=== PATIENT | male | born 1930 | race Two or more races ===

== ENCOUNTER 2016-09-09 16:53 | Inpatient (IN) | payer MEDICARE, MEDICAID ==
--- NOTE | 2016-09-09 17:39 | ED Physician Chart ---
Chief Complaint/HPI - Patient Information Date Seen:: 09/09/16 Time Seen:: 17:20 Chief Complaint:: cough and congestion History of Present Illness:: cough and congestion for two days. Possibly also sent here for possible admission to [facility]. Allergies:: Allergies Allergy/AdvReac Type Severity Reaction Status Date / Time No Known Allergies Allergy Verified 02/18/16 14:49 Historian:: Patient Review:: Transfer documents Reviewed Review of Systems - Review of Systems General/Constitutional: No fever, No chills Skin: No skin lesions Head: No headache Eyes: No loss of vision ENT: No earache Neck: No neck pain Cardio Vascular: No chest pain Pulmonary: No SOB, Cough GI: No nausea, No vomiting G/U: No dysuria Musculoskeletal: No bone or joint pain Endocrine: No polyuria, No polydipsia Psychiatric: Prior psych history, Anxiety Hematopoietic: No bruising Allergic/Immuno: No urticaria Neurological: No syncope Past Medical History - Past Medical History Past Medical History: HTN, Arthritis, Dementia, Other (anxiety; psychosis; bronchitis; CHF; COPD; chronic renal disease; hypothyroidism; BPH; GERD) Family History: Other (unavailable) Social History: Care Facility, Other (former smoker) Surgical History: other (unavailable) Psychiatricy History: Dementia Medication: Reviewed Family Medical History - Family Member Mother History Unknown: Yes Ethnicity: Living Status: Hx Family Cancer: No Hx Family Coronary Artery Disease: No Hx Family Congestive Heart Failure: No Hx Family Hypertension: No Hx Family Stroke: No Hx Family Diabetes: No Hx Family Seizures: No Hx Family Dementia: No Hx Family AIDS: No Hx Family HIV: No Hx Family COPD: No Hx Family Hepatitis: No Hx Family Psychiatric Problems: No Hx Family Tuberculosis: No Physical Exam - Physical Examination General/Constitutional: Well-developed, well-nourished, Alert, No distress Other Gen/Cons comments:: confused; does not know the year. Head: Atraumatic Eyes: Lids, conjuctiva normal, PERRL Skin: Nl inspection, No rash, No skin lesions, No ecchymosis ENMT: External ears, nose nl Neck: No nuchal rigidity Respiratory: Nl effort/Exclusion Other Respiratory comments:: prolonged, harsh expiratory sounds Other Cardio Vascular comments:: heart sounds inaudible GI: No tenderness/rebounding/guarding, No organomegaly, No hernia : No CVA tenderness Other Extremities comments:: 3/4 pre-tibial edema Neuro/Psych: No focal deficits Misc: Normal back Labs/Radiology/EKG Results - Lab Results Results: Laboratory Results - last 24 hr 09/09/16 09/09/16 09/09/16 17:39 17:39 17:39 WBC 10.1 RBC 5.67 Hgb 15.2 D Hct 46.1 D MCV 81.3 MCH 26.8 L MCHC Differential 32.9 RDW 17.1 Plt Count 109 L D MPV 10.3 Neutrophils (Manual) 94 H Lymphocytes 1 L Monocytes 5 Eosinophils 0 Platelet Estimate DECREASED PLATELETS Platelet Morphology GIANT PLATELETS SEEN Polychromasia 1+ Anisocytosis 1+ RBC Morph Micro Appear ABNORMAL Sodium 136 Potassium 5.3 H Chloride 106 Carbon Dioxide 20.3 L Anion Gap 15.0 BUN 89 H* Creatinine 3.3 H Est GFR ( Amer) TNP Est GFR (Non-Af Amer) TNP BUN/Creatinine Ratio 27.0 Glucose 122 H Calcium 8.5 L Total Bilirubin 2.9 H AST 285 H ALT 382 H Alkaline Phosphatase 139 H Troponin I B-Natriuretic Peptide Total Protein 6.2 Albumin 2.8 L Globulin 3.4 Albumin/Globulin Ratio 0.8 L TSH 0.97 09/09/16 09/09/16 18:00 18:00 WBC RBC Hgb Hct MCV MCH MCHC Differential RDW Plt Count MPV Neutrophils (Manual) Lymphocytes Monocytes Eosinophils Platelet Estimate Platelet Morphology Polychromasia Anisocytosis RBC Morph Micro Appear Sodium Potassium Chloride Carbon Dioxide Anion Gap BUN Creatinine Est GFR ( Amer) Est GFR (Non-Af Amer) BUN/Creatinine Ratio Glucose Calcium Total Bilirubin AST ALT Alkaline Phosphatase Troponin I 0.09 H* D B-Natriuretic Peptide 3010.0 H Total Protein Albumin Globulin Albumin/Globulin Ratio TSH - Radiology Results Results: CXR: cardiomegaly; right basilar infiltrate - EKG Interpretations Rhythm: NSR [place]: RAD Rate: 90 Comments:: IVCD: old septal RI Assessment - Assessment General Assessment: 30 minutes critical care time ED Septic Shock - . Is Septic Shock (SBP<90, OR Lactate>4 mmol\L) present?: No Reassessment (Disposition) - Reassessment Reassessment Condition:: Unchanged - Diagnosis Diagnosis:: CHF; pneumonia; dementia; renal insufficiency - Patient Disposition Admitted to:: ICU Spoke to:: Irving Cox Admitting Medical Physician:: Irving Cox Condition at Disposition:: Critical
[2016-09-09 17:48] LABS: MEAN CELL VOLUME 81.3 fl (80-99); MEAN CORPUSCULAR HEMOGLOBIN 26.8 pg (27.0-31.0); MEAN CORPUSCULAR HGB CONC 32.9 pg (28.0-36.0); MEAN PLATELET VOLUME 10.3 fl; RED BLOOD COUNT 5.67 Mil/cmm (3.80-5.80); RED CELL DISTRIBUTION WIDTH 17.1 % (11.5-20.0); WHITE BLOOD COUNT 10.1 Th/cmm (4.8-10.8)
[2016-09-09] MEDS ORDERED: Sodium Chloride 0.9% 1,000 ML IV ONE (17:54)
[2016-09-09] MEDS ORDERED: Levofloxacin 500mg/100mL 500 MG/100 ML BAG IV ONE ×2 (17:54→19:07)
[2016-09-09 17:58] LABS: HEMATOCRIT 46.1 % (39.0-49.0); HEMOGLOBIN 15.2 gm/dL (12.6-17.4); PLATELET COUNT 109 Th/cmm (150-400)
[2016-09-09 18:00] LABS: ALB/GLOB RATIO 0.8 (1.0-1.8); ALKALINE PHOSPHATASE 139 U/L (34-104); BILIRUBIN,TOTAL 2.9 mg/dL (0.3-1.0); CALCIUM SERUM 8.5 mg/dL (8.6-10.3); CARBON DIOXIDE 20.3 mEq/L (21.0-31.0); CHLORIDE 106 mEq/L (98-107); CREATININE - SERUM 3.3 mg/dL (0.7-1.3); GLUCOSE 122 mg/dL (70-105); POTASSIUM SERUM 5.3 mEq/L (3.5-5.1); SGOT 285 U/L (13-39); SGPT/ALT 382 U/L (7-52); SODIUM SERUM 136 mEq/L (136-145)
[2016-09-09 18:14] LABS: BUN - UREA NITROGEN 89 mg/dL (7-25)
[2016-09-09 18:23] LABS: NEUTROPHILS 94 % (40-80); PLATELET ESTIMATE DECREASED PLATELETS (NORMAL); PLATELET MORPHOLOGY GIANT PLATELETS SEEN (NORMAL); TOTAL CELLS COUNTED 100
[2016-09-09 18:24] LABS: ANISOCYTOSIS 1+; POLYCHROMASIA 1+
[2016-09-09 18:25] LABS: EOSINOPHIL 0 % (0-5)
[2016-09-09] MEDS ORDERED: Sodium Chloride 0.9% 1,000 ML IV SCH (21:00)
--- NOTE | 2016-09-09 21:23 | Admit Criteria Form ---
Admit Criteria Forms - Admit Criteria Diagnosis: PNEUMONIA, COMMUNITY ACQUIRED Clinical Indications for Admission to Inpatient Care ( Place 'X' for any and all applicable criteria): Admission is indicated for ANY ONE of the following (1)(2)(3): [ ]I. Hypoxemia indicated by ANY ONE of the following: [ ]a) Oxygen saturation less than 90% while breathing room air [ ]b) PO2 less than 60 mm Hg (8.0 kPa) while breathing room air [ ]c) Chronic lung disease with significant deterioration from baseline oxygenation [ ]II. Appropriate diagnostic testing and treatment unavailable in outpatient or recovery facility (eg,testing or infection control measures unavailable(10) [ X]III. Moderate-risk or high-risk category patients (Pneumonia Severity Index (PSI) class IV or V, or CURB-65 score of 3 or greater). [ ]IV. Outpatient treatment failure as indicated by ANY ONE of the following(9) : [ ]a) Failure to respond to antibiotic (eg, resistant organism) [ ]b) Clinically significant adverse effects from medication (eg, vomiting) [ ]c) Complications of pneumonia (eg, empyema, bacteremia) [ ]d) Significant worsening of comorbid cond necessitating inpatient care (eg, chronic heart failure) [ ]V. Intermediate-risk category patients (eg, PSI class III or CURB-65 score 2) who do not improve with initial therapy and observation. [ ]. Immunocompromised patients (eg, AIDS, chronic steroid use) at moderate or high risk based on clinical evaluation. [ ]VII. Complicated pleural effusions (eg, exudative, loculated) [ ]VIII.Hemodynamic instability [ ] IX. Altered mental status that is severe or persistent. [ ]X. Dehydration that is severe or persistent. [ ]XI. Bacteremia [ ]XII. Respiratory finding (eg. tachypnea) that do not respond to outpatient or observation care treatment Extended stay beyond goal length of stay may be needed for (20) [ ]a) Unclear diagnosis [ ]b) Pleural disease [ ]c) Severe pneumonia or treatment failure (25 [ ]d) Respiratory failure (anticipate invasive or noninvasive ventilatory support) [ ]e) Abnormal serum electrolytes (serum Na concentration less than 135 mEq/L (mmol/L) (32)(33) [ ]f) Clinically significant comorbid illness (eg, heart failure, atrial fibrillation with rapid heart rate, alcohol withdrawal, renal insufficiency)(34)(35) [ ]g) Comorbid acute exacerbation of COPD(36) [ ]h) Concomitant diagnosis of malignancy that may be associated with malnutrition, immunologic impairment, or bronchial obstruction. [ ]i) Concomitant altered mental status [ ]j) Culture-identified Gram-negative or antibiotic-resistant organism (eg, Pseudomonas, methicillin-resistant Staphylococcus aureus)(30) [ ]k) Healthcare-associated pneumonia The original [facility] content created by [employer] has been revised. The portions of the content which have been revised are identified through the use of italic text or in bold, and [facility] has neither reviewed nor approved the modified material. All other unmodified content is copyright [facility]. Please see references footnoted in the original [facility] sones edition 2016 Admit Criteria Met?: Yes
[2016-09-09] MEDS: Atorvastatin Calcium 10 MG TAB PO SCH (21:37)
[2016-09-10 05:37] LABS: HEMATOCRIT 43.6 % (39.0-49.0); HEMOGLOBIN 14.5 gm/dL (12.6-17.4); MEAN CELL VOLUME 80.4 fl (80-99); MEAN CORPUSCULAR HEMOGLOBIN 26.8 pg (27.0-31.0); MEAN CORPUSCULAR HGB CONC 33.3 pg (28.0-36.0); MEAN PLATELET VOLUME 10.4 fl; PLATELET COUNT 107 Th/cmm (150-400); RED BLOOD COUNT 5.43 Mil/cmm (3.80-5.80); RED CELL DISTRIBUTION WIDTH 16.6 % (11.5-20.0); WHITE BLOOD COUNT 10.6 Th/cmm (4.8-10.8)
[2016-09-10 06:13] LABS: ALB/GLOB RATIO 0.8 (1.0-1.8); ALKALINE PHOSPHATASE 127 U/L (34-104); ANION GAP 14.6 (7.0-16.0); BILIRUBIN,TOTAL 2.7 mg/dL (0.3-1.0); BUN/CREATININE RATIO 27.6; CARBON DIOXIDE 19.6 mEq/L (21.0-31.0); CHLORIDE 107 mEq/L (98-107); CREATININE - SERUM 3.3 mg/dL (0.7-1.3); GLUCOSE 118 mg/dL (70-105); POTASSIUM SERUM 5.2 mEq/L (3.5-5.1); SGOT 308 U/L (13-39); SGPT/ALT 340 U/L (7-52); SODIUM SERUM 136 mEq/L (136-145)
[2016-09-10 06:49] LABS: BUN - UREA NITROGEN 91 mg/dL (7-25)
[2016-09-10 08:15] LABS: BAND NEUTROPHILE 4 % (0-10); EOSINOPHIL 1 % (0-5); NEUTROPHILS 82 % (40-80); TOTAL CELLS COUNTED 100
[2016-09-10 08:16] LABS: PLATELET ESTIMATE DECREASED PLATELETS (NORMAL); PLATELET MORPHOLOGY NORMAL (NORMAL); POLYCHROMASIA 1+
[2016-09-10] MEDS: Multivitamin w/ Minerals Tab PO SCH (09:00)
[2016-09-10] MEDS: Promethazine DM 6.25/15mg-5mL 5 ML SYR PO PRN (09:13)
[2016-09-10] MEDS: Albuterol/Ipratropium Neb 3 ML AERS HHN SCH ×4 (11:11→23:05)
--- NOTE | 2016-09-10 11:12 | Diagnostic Imaging Report ---
Portable chest x-ray HISTORY: Cough The heart is enlarged. There is suggestion of faint infiltrate in the right lower lobe. Pneumonia cannot be excluded. Clinical correlation is needed. Slight density about the left costophrenic angle. A small pleural effusion cannot be excluded. IMPRESSION: 1. Suggestion of faint infiltrate right lower lobe. Pneumonia cannot be excluded. Clinical correlation is needed 2. Cardiomegaly 3. Question small left pleural effusion
[2016-09-10] MEDS ORDERED: Probiotic Screen MC PRN (11:20)
--- NOTE | 2016-09-10 13:25 | History & Physical ---
CHIEF COMPLAINT: Cough. HISTORY OF PRESENT ILLNESS: This is the case of an 85-year-old male who I follow in the [place] [facility]. I received a call few days ago stating the patient has been having cough productive and medication was given. Despite treatment, I received a call from [facility] referring the patient continued having not improving, reason why, order was given to transfer the patient to Emergency Room for evaluation and treatment. PAST MEDICAL HISTORY: The patient has past medical history of COPD, dementia, chronic kidney disease, CHF, hypertension, BPH and hypothyroidism. MEDICATIONS: Reviewed. ALLERGIES: No known allergies. SOCIAL HISTORY: The patient is a permanent resident of a [place] [facility]. FAMILY HISTORY: Noncontributory. PAST SURGICAL HISTORY: None. REVIEW OF SYSTEMS: LUNGS: The patient referred cough. He denies shortness of breath. HEART: The patient denies chest pain. ABDOMEN: Unremarkable. EXTREMITIES: Unremarkable. PHYSICAL EXAMINATION: GENERAL: Does reveal a fairly nourished and developed male, awake, alert, confused, not oriented, in no acute distress. HEENT: Head is normocephalic and atraumatic. Nose: No evidence of nasal obstruction. Ears: No evidence of any discharge. Mouth: Fairly ____. Eyes: Pupils reactive to light. LUNGS: Bilateral decreased air entry. Wheezing and crackles in both lungs with abundant secretions. HEART: Regular rhythm. ABDOMEN: Soft, nontender, bowel sound is present. EXTREMITIES: Pitting edema x 1. NEUROLOGICAL: The patient is awake, alert, confused, not oriented. Neurological examination was not completed secondary to the patient's mental condition. IMPRESSION: 1. Chronic obstructive pulmonary disease exacerbation. 2. Acute kidney disease over chronic kidney disease. 3. Thrombocytopenia. 4. Liver enzymes elevated. 5. Troponins elevated. 6. Dementia. 7. Congestive heart failure. 8. Hypertension. 9. Hypothyroidism. PLAN: 1. The patient will be admitted in the ICU Unit. 2. Continue with [facility] medications. 3. Consult with Nephro. 4. Consult with Cardiology. 5. Consult with Psychiatry. 6. Ceftriaxone IV. 7. Albuterol ____ treatment. JOB# [id number]
[2016-09-10] MEDS ORDERED: VTE Chemical Prophylaxis Screen/Admission MC PRN (17:19)
[2016-09-10] MEDS: Sodium Chloride 0.9% 1,000 ML IV SCH (19:26)
[2016-09-10] MEDS: Atorvastatin Calcium 10 MG TAB PO SCH (20:20)
--- NOTE | 2016-09-11 01:24 | Consultation ---
PSYCHIATRIC CONSULTATION The patient was seen, chart reviewed, and discussed with staff. HISTORY OF PRESENT ILLNESS: The patient is an 85-year-old male with multiple medical problems, history of dementia, depression, anxiety, was sent from his snf for increased agitation and restlessness, also was noted to have persistent cough with thick yellow productive phlegm. The patient now is in ICU, has been restless and anxious, did not want to talk, was trying to push his tray. The patient been passively accepting treatment with nursing staff, but at times becomes angry. PAST PSYCHIATRIC HISTORY: Psychosis and history of dementia. PAST MEDICAL HISTORY: As per Dr. Cox. PSYCHOSOCIAL HISTORY: The patient resides in a snf facility and requires complete care. MENTAL STATUS EXAMINATION: The patient is in bed, oriented to person and knew his date of , did not know current time, did not know what ____ of the hospital he was in. The patient was very dismissive, angry, and irritable. The patient appears to be internally preoccupied. The patient would not answer much of other questions. The patient's attention is wandering and his focus is poor. ASSESSMENT: Psychosis, not otherwise specified, rule out major depressive disorder with psychosis; dementia, Alzheimer's type as per history, rule out delirium secondary to underlying medical condition/infection. At this time, we would recommend continuation of medical supportive measure, continue Seroquel 25 mg p.o. at bedtime. Try to minimize sedation. We will follow closely while in the hospital. Thank you for the consultation. [facility]# [id number]
[2016-09-11] MEDS: Albuterol/Ipratropium Neb 3 ML AERS HHN SCH ×6 (02:31→23:29)
[2016-09-11 05:15] LABS: HEMATOCRIT 45.1 % (39.0-49.0); RED CELL DISTRIBUTION WIDTH 17.4 % (11.5-20.0)
[2016-09-11 05:21] LABS: MEAN CELL VOLUME 80.9 fl (80-99); MEAN CORPUSCULAR HEMOGLOBIN 26.8 pg (27.0-31.0); MEAN CORPUSCULAR HGB CONC 33.1 pg (28.0-36.0); RED BLOOD COUNT 5.58 Mil/cmm (3.80-5.80); WHITE BLOOD COUNT 9.3 Th/cmm (4.8-10.8)
[2016-09-11 05:32] LABS: PLATELET COUNT 103 Th/cmm (150-400)
[2016-09-11 05:54] LABS: ALB/GLOB RATIO 0.7 (1.0-1.8); ALKALINE PHOSPHATASE 119 U/L (34-104); ANION GAP 16.1 (7.0-16.0); BILIRUBIN,TOTAL 2.4 mg/dL (0.3-1.0); BUN/CREATININE RATIO 29.4; CALCIUM SERUM 7.9 mg/dL (8.6-10.3); CHLORIDE 106 mEq/L (98-107); CREATININE - SERUM 3.1 mg/dL (0.7-1.3); GLUCOSE 90 mg/dL (70-105); POTASSIUM SERUM 5.1 mEq/L (3.5-5.1); SGOT 198 U/L (13-39); SGPT/ALT 277 U/L (7-52); SODIUM SERUM 136 mEq/L (136-145)
[2016-09-11 06:01] LABS: MAGNESIUM 2.8 mg/dL (1.9-2.7); PHOSPHOROUS 4.5 mg/dL (2.5-5.0)
[2016-09-11 06:21] LABS: BUN - UREA NITROGEN 91 mg/dL (7-25)
[2016-09-11 06:29] LABS: BAND NEUTROPHILE 3 % (0-10); EOSINOPHIL 2 % (0-5); NEUTROPHILS 76 % (40-80); TOTAL CELLS COUNTED 100
[2016-09-11 06:30] LABS: PLATELET ESTIMATE DECREASED PLATELETS (NORMAL)
[2016-09-11] MEDS: Lactobacillus Rhamnosus 10 Billion CFU Capsule PO SCH (08:39)
[2016-09-11] MEDS: Promethazine DM 6.25/15mg-5mL 5 ML SYR PO PRN (08:41)
[2016-09-11] MEDS: Multivitamin w/ Minerals Tab PO SCH (08:41)
[2016-09-11] MEDS: Sodium Chloride 0.9% 1,000 ML IV SCH ×2 (08:45→21:11)
--- NOTE | 2016-09-11 09:12 | General Progress Note ---
Subjective - Review of Systems Service Date: 09/11/16 Subjective: I fell better Objective - Results Result Diagrams: 09/11/16 05:01 09/11/16 05:01 Recent Labs: Laboratory Last Values WBC 9.3 Th/cmm (4.8-10.8) 09/11/16 05:01 RBC 5.58 Mil/cmm (3.80-5.80) 09/11/16 05:01 Hgb 15.0 gm/dL (12.6-17.4) 09/11/16 05:01 Hct 45.1 % (39.0-49.0) 09/11/16 05:01 MCV 80.9 fl (80-99) 09/11/16 05:01 MCH 26.8 pg (27.0-31.0) L 09/11/16 05:01 MCHC Differential 33.1 pg (28.0-36.0) 09/11/16 05:01 RDW 17.4 % (11.5-20.0) 09/11/16 05:01 Plt Count 103 Th/cmm (150-400) L 09/11/16 05:01 MPV 10.0 fl 09/11/16 05:01 Band Neutrophils % 3 % (0-10) 09/11/16 05:01 Neutrophils (Manual) 76 % (40-80) 09/11/16 05:01 Lymphocytes 11 % (20-50) L 09/11/16 05:01 Monocytes 8 % (2-10) 09/11/16 05:01 Eosinophils 2 % (0-5) 09/11/16 05:01 Platelet Estimate DECREASED PLATELETS (NORMAL) 09/11/16 05:01 Platelet Morphology NORMAL (NORMAL) 09/10/16 05:17 Polychromasia 1+ 09/10/16 05:17 Anisocytosis 1+ 09/09/16 17:39 RBC Morph Micro Appear ABNORMAL (NORMAL) 09/10/16 05:17 Sodium 136 mEq/L (136-145) 09/11/16 05:01 Potassium 5.1 mEq/L (3.5-5.1) 09/11/16 05:01 Chloride 106 mEq/L (98-107) 09/11/16 05:01 Carbon Dioxide 19.0 mEq/L (21.0-31.0) L 09/11/16 05:01 Anion Gap 16.1 (7.0-16.0) H 09/11/16 05:01 BUN 91 mg/dL (7-25) H* 09/11/16 05:01 Creatinine 3.1 mg/dL (0.7-1.3) H 09/11/16 05:01 Est GFR ( Amer) TNP 09/11/16 05:01 Est GFR (Non-Af Amer) TNP 09/11/16 05:01 BUN/Creatinine Ratio 29.4 09/11/16 05:01 Glucose 90 mg/dL (70-105) 09/11/16 05:01 Calcium 7.9 mg/dL (8.6-10.3) L 09/11/16 05:01 Phosphorus 4.5 mg/dL (2.5-5.0) 09/11/16 05:01 Magnesium 2.8 mg/dL (1.9-2.7) H 09/11/16 05:01 Total Bilirubin 2.4 mg/dL (0.3-1.0) H 09/11/16 05:01 AST 198 U/L (13-39) H 09/11/16 05:01 ALT 277 U/L (7-52) H 09/11/16 05:01 Alkaline Phosphatase 119 U/L (34-104) H 09/11/16 05:01 Troponin I 0.08 ng/mL (0.01-0.05) H* 09/10/16 05:17 B-Natriuretic Peptide 3230.0 pg/mL (5.0-100.0) H 09/11/16 05:01 Total Protein 5.8 gm/dL (6.0-8.3) L 09/11/16 05:01 Albumin 2.4 gm/dL (4.2-5.5) L 09/11/16 05:01 Globulin 3.4 gm/dL 09/11/16 05:01 Albumin/Globulin Ratio 0.7 (1.0-1.8) L 09/11/16 05:01 TSH 0.97 uIU/ml (0.34-5.60) 09/09/16 17:39 RPR NONREACTIVE (NONREACTIVE) 09/09/16 17:39 - Physical Exam Vitals and I&O: Vital Signs Temp 97.2 F 09/11/16 04:00 Pulse 92 09/11/16 08:39 Resp 26 09/11/16 07:19 BP 135/84 09/11/16 08:39 Pulse Ox 98 09/11/16 07:19 Intake & Output 09/10/16 09/11/16 09/11/16 18:59 06:59 18:59 Intake Total 1635 183.75 Balance 1635 183.75 Intake: Intake, IV Amount 865 183.75 Sodium Chloride 0.9% 1, 815 183.75 000 ml @ 75 mls/hr IV . [id number] [facility] Rx#:[id number] cefTRIAXone 1 gm In 50 Dextrose 5% 50 ml @ 100 mls/hr IV Q24H [facility] Rx#: [id number] Oral 770 Other: # Voids 3 # Bowel Movements 0 Active Medications: Current Medications Acetaminophen (Tylenol) 650 mg PO Q4HR PRN PRN Reason: Pain Stop: 11/08/16 20:54 Albuterol/Ipratropium (Duoneb Neb) 3 ml HHN Q4HRT GOOD Stop: 11/09/16 10:59 Last Admin: 09/11/16 07:19 Dose: 3 ml Ascorbic Acid (Vitamin C) 500 mg PO DAILY GOOD Stop: 11/09/16 08:59 Last Admin: 09/11/16 08:41 Dose: 500 mg Atorvastatin Calcium (Lipitor) 10 mg PO HS GOOD PRN Reason: Protocol Stop: 11/08/16 20:59 Last Admin: 09/10/16 20:20 Dose: 10 mg Carvedilol (Coreg) 6.25 mg PO Q12H GOOD Stop: 11/08/16 20:59 Last Admin: 09/11/16 08:39 Dose: 6.25 mg Clopidogrel Bisulfate (Plavix) 75 mg PO DAILY GOOD Stop: 11/09/16 08:59 Last Admin: 09/11/16 08:41 Dose: 75 mg Docusate Sodium (Colace) 100 mg PO DAILY GOOD Stop: 11/09/16 08:59 Last Admin: 09/11/16 08:39 Dose: 100 mg Ceftriaxone Sodium 1 gm/ (Dextrose) 50 mls @ 100 mls/hr IV Q24H GOOD Stop: 11/09/16 20:59 Last Infusion: 09/10/16 20:51 Dose: Infused Sodium Chloride (Nacl 0.9%) 1,000 mls @ 75 mls/hr IV .[id number] GOOD Stop: 11/08/16 20:59 Last Admin: 09/11/16 08:45 Dose: 75 mls/hr Lactobacillus Rhamnosus (Culturelle) 1 each PO DAILY GOOD Stop: 11/10/16 08:59 Last Admin: 09/11/16 08:39 Dose: 1 each Magnesium Hydroxide (Milk Of Magnesia) 30 ml PO DAILY PRN PRN Reason: Constipation Stop: 11/08/16 20:54 Miscellaneous (Probiotic Screen) 1 ea PRN PRN PRN Reason: PROTOCOL Stop: 11/09/16 11:19 Miscellaneous (Vte Chemical Prophylaxis Screen/ Admission) 1 ea PRN PRN PRN Reason: PROTOCOL Stop: 11/09/16 17:18 Promethazine HCl/Dextromethorphan (Phenergan Dm 6.25/15mg-5 Ml) 5 ml PO Q4H PRN PRN Reason: Cough Stop: 11/09/16 07:02 Last Admin: 09/11/16 08:41 Dose: 5 ml Quetiapine Fumarate (Seroquel) 25 mg PO HS GOOD PRN Reason: Protocol Stop: 11/09/16 20:59 Last Admin: 09/10/16 20:20 Dose: 25 mg Tamsulosin HCl (Flomax) 0.4 mg PO HS [facility] Stop: 11/08/16 20:59 Last Admin: 09/10/16 20:20 Dose: 0.4 mg General: Alert, Moderate distress, Other (Confused) Neck: Supple Cardiovascular: Regular rate Lungs: Other (Bilateral decreased air entry, occasional whezzing) Abdomen: Bowel sounds, Soft Extremities: Other (Pitting edema 1+) Neurological: Other (Non ambulatory) Skin: Other (Warm and dry) Psych/Mental Status: Other (Confused not oriented) - Procedures Procedures: Procedures Procedure Code Date GROUP PSYCHOTHERAPY 76728 07/07/15 GROUP PSYCHOTHERAPY [id number] 07/07/15 OTHER GROUP THERAPY 94.44 10/17/13 Assessment/Plan - Problem List Patient Problems: All Active Problems Diabetes mellitus (Active) E11.9 Congestive heart failure (Acute) I50.9 Dementia with behavioral disturbance (Acute) F03.91 Hypothyroidism (Acute) E03.9 Mental health disorder (Acute) F99 Psychosis (Acute) F29 SEXUALLY INAPPROPRIATE BEHAVIOR (Acute) - Assessment Assessment: Patient is awake, calm in no acute distress. Labs improving. Respiration improving, patient seem better. Already seen by Nephro and cardio. - Plan Plan: Patient will be transfer to TELE. Will continue monitoring.
--- NOTE | 2016-09-11 09:57 | Diagnostic Imaging Report ---
Portable chest x-ray HISTORY: Pneumonia Compared with the prior exam 09/09/2016, persistent infiltrate noted in the right lower lobe. The heart remains enlarged. IMPRESSION: 1. Persistent infiltrate right lower lobe. Pneumonia cannot be excluded.
--- NOTE | 2016-09-11 12:27 | General Progress Note ---
Subjective - Review of Systems Service Date: 09/11/16 Subjective: more quiet today but still spitting saliva/sputum Objective - Results Result Diagrams: 09/11/16 05:01 09/11/16 05:01 Recent Labs: Laboratory Last Values WBC 9.3 Th/cmm (4.8-10.8) 09/11/16 05:01 RBC 5.58 Mil/cmm (3.80-5.80) 09/11/16 05:01 Hgb 15.0 gm/dL (12.6-17.4) 09/11/16 05:01 Hct 45.1 % (39.0-49.0) 09/11/16 05:01 MCV 80.9 fl (80-99) 09/11/16 05:01 MCH 26.8 pg (27.0-31.0) L 09/11/16 05:01 MCHC Differential 33.1 pg (28.0-36.0) 09/11/16 05:01 RDW 17.4 % (11.5-20.0) 09/11/16 05:01 Plt Count 103 Th/cmm (150-400) L 09/11/16 05:01 MPV 10.0 fl 09/11/16 05:01 Band Neutrophils % 3 % (0-10) 09/11/16 05:01 Neutrophils (Manual) 76 % (40-80) 09/11/16 05:01 Lymphocytes 11 % (20-50) L 09/11/16 05:01 Monocytes 8 % (2-10) 09/11/16 05:01 Eosinophils 2 % (0-5) 09/11/16 05:01 Platelet Estimate DECREASED PLATELETS (NORMAL) 09/11/16 05:01 Platelet Morphology NORMAL (NORMAL) 09/10/16 05:17 Polychromasia 1+ 09/10/16 05:17 Anisocytosis 1+ 09/09/16 17:39 RBC Morph Micro Appear ABNORMAL (NORMAL) 09/10/16 05:17 Sodium 136 mEq/L (136-145) 09/11/16 05:01 Potassium 5.1 mEq/L (3.5-5.1) 09/11/16 05:01 Chloride 106 mEq/L (98-107) 09/11/16 05:01 Carbon Dioxide 19.0 mEq/L (21.0-31.0) L 09/11/16 05:01 Anion Gap 16.1 (7.0-16.0) H 09/11/16 05:01 BUN 91 mg/dL (7-25) H* 09/11/16 05:01 Creatinine 3.1 mg/dL (0.7-1.3) H 09/11/16 05:01 Est GFR ( Amer) TNP 09/11/16 05:01 Est GFR (Non-Af Amer) TNP 09/11/16 05:01 BUN/Creatinine Ratio 29.4 09/11/16 05:01 Glucose 90 mg/dL (70-105) 09/11/16 05:01 Calcium 7.9 mg/dL (8.6-10.3) L 09/11/16 05:01 Phosphorus 4.5 mg/dL (2.5-5.0) 09/11/16 05:01 Magnesium 2.8 mg/dL (1.9-2.7) H 09/11/16 05:01 Total Bilirubin 2.4 mg/dL (0.3-1.0) H 09/11/16 05:01 AST 198 U/L (13-39) H 09/11/16 05:01 ALT 277 U/L (7-52) H 09/11/16 05:01 Alkaline Phosphatase 119 U/L (34-104) H 09/11/16 05:01 Troponin I 0.06 ng/mL (0.01-0.05) H D 09/11/16 09:15 B-Natriuretic Peptide 3230.0 pg/mL (5.0-100.0) H 09/11/16 05:01 Total Protein 5.8 gm/dL (6.0-8.3) L 09/11/16 05:01 Albumin 2.4 gm/dL (4.2-5.5) L 09/11/16 05:01 Globulin 3.4 gm/dL 09/11/16 05:01 Albumin/Globulin Ratio 0.7 (1.0-1.8) L 09/11/16 05:01 TSH 0.97 uIU/ml (0.34-5.60) 09/09/16 17:39 RPR NONREACTIVE (NONREACTIVE) 09/09/16 17:39 - Physical Exam Vitals and I&O: Vital Signs Temp 97.2 F 09/11/16 08:00 Pulse 92 09/11/16 11:13 Resp 22 09/11/16 11:13 BP 120/82 09/11/16 11:00 Pulse Ox 99 09/11/16 11:13 Intake & Output 09/10/16 09/11/16 09/11/16 18:59 06:59 18:59 Intake Total 1635 183.75 Balance 1635 183.75 Intake: Intake, IV Amount 865 183.75 Sodium Chloride 0.9% 1, 815 183.75 000 ml @ 75 mls/hr IV . [id number] [facility] Rx#:[id number] cefTRIAXone 1 gm In 50 Dextrose 5% 50 ml @ 100 mls/hr IV Q24H [facility] Rx#: [id number] Oral 770 Other: # Voids 3 # Bowel Movements 0 Active Medications: Current Medications Acetaminophen (Tylenol) 650 mg PO Q4HR PRN PRN Reason: Pain Stop: 11/08/16 20:54 Albuterol/Ipratropium (Duoneb Neb) 3 ml HHN Q4HRT [facility] Stop: 11/09/16 10:59 Last Admin: 09/11/16 11:13 Dose: 3 ml Ascorbic Acid (Vitamin C) 500 mg PO DAILY [facility] Stop: 11/09/16 08:59 Last Admin: 09/11/16 08:41 Dose: 500 mg Atorvastatin Calcium (Lipitor) 10 mg PO HS [facility] PRN Reason: Protocol Stop: 11/08/16 20:59 Last Admin: 09/10/16 20:20 Dose: 10 mg Carvedilol (Coreg) 6.25 mg PO Q12H [facility] Stop: 11/08/16 20:59 Last Admin: 09/11/16 08:39 Dose: 6.25 mg Clopidogrel Bisulfate (Plavix) 75 mg PO DAILY [facility] Stop: 11/09/16 08:59 Last Admin: 09/11/16 08:41 Dose: 75 mg Docusate Sodium (Colace) 100 mg PO DAILY [facility] Stop: 11/09/16 08:59 Last Admin: 09/11/16 08:39 Dose: 100 mg Ceftriaxone Sodium 1 gm/ (Dextrose) 50 mls @ 100 mls/hr IV Q24H [facility] Stop: 11/09/16 20:59 Last Infusion: 09/10/16 20:51 Dose: Infused Sodium Chloride (Nacl 0.9%) 1,000 mls @ 75 mls/hr IV .[id number] [facility] Stop: 11/08/16 20:59 Last Admin: 09/11/16 08:45 Dose: 75 mls/hr Lactobacillus Rhamnosus (Culturelle) 1 each PO DAILY [facility] Stop: 11/10/16 08:59 Last Admin: 09/11/16 08:39 Dose: 1 each Magnesium Hydroxide (Milk Of Magnesia) 30 ml PO DAILY PRN PRN Reason: Constipation Stop: 11/08/16 20:54 Miscellaneous (Probiotic Screen) 1 ea PRN PRN PRN Reason: PROTOCOL Stop: 11/09/16 11:19 Miscellaneous (Vte Chemical Prophylaxis Screen/ Admission) 1 ea PRN PRN PRN Reason: PROTOCOL Stop: 11/09/16 17:18 Promethazine HCl/Dextromethorphan (Phenergan Dm 6.25/15mg-5 Ml) 5 ml PO Q4H PRN PRN Reason: Cough Stop: 11/09/16 07:02 Last Admin: 09/11/16 08:41 Dose: 5 ml Quetiapine Fumarate (Seroquel) 25 mg PO HS GOOD PRN Reason: Protocol Stop: 11/09/16 20:59 Last Admin: 09/10/16 20:20 Dose: 25 mg Tamsulosin HCl (Flomax) 0.4 mg PO HS [facility] Stop: 11/08/16 20:59 Last Admin: 09/10/16 20:20 Dose: 0.4 mg General: Alert, Mild distress HEENT: Atraumatic, EOMI, Mucous membr. moist/pink Neck: Supple, +2 carotid pulse wo bruit Cardiovascular: Regular rate, Normal S1, Normal S2 Lungs: Other (occ. rhonchi) Abdomen: Bowel sounds, Soft Extremities: Edema Neurological: Sensation intact Skin: no Rash Psych/Mental Status: Other (behavioral disturbance) - Procedures Procedures: Procedures Procedure Code Date GROUP PSYCHOTHERAPY 53755 07/07/15 GROUP PSYCHOTHERAPY GZHZZZZ 07/07/15 OTHER GROUP THERAPY 94.44 10/17/13 Assessment/Plan - Problem List Patient Problems: All Active Problems Diabetes mellitus (Active) E11.9 Congestive heart failure (Acute) I50.9 Dementia with behavioral disturbance (Acute) F03.91 Hypothyroidism (Acute) E03.9 Mental health disorder (Acute) F99 Psychosis (Acute) F29 SEXUALLY INAPPROPRIATE BEHAVIOR (Acute) - Assessment Assessment: belia on ckd right lower lobe HAP hyperkalemia elevated BNP 2nd to ckd anemia of ckd BPH alhz dementia w/ behavioral disturbance HTN DJD peripheral edema elevated liver enzymes possibly fatty liver acute bronchospasm - Plan Plan: decrease ivf due to persistent lower ext edema continue breathing Tx cr. down to 3.1, elevated BNP likely due to ckd request abd, renal us f/u electrolytes cxr still w/ right lower lobe infiltrate, continue abx
[2016-09-11] MEDS: Atorvastatin Calcium 10 MG TAB PO SCH (20:49)
[2016-09-12] MEDS: Albuterol/Ipratropium Neb 3 ML AERS HHN SCH ×6 (03:28→22:20)
--- NOTE | 2016-09-12 04:18 | Consultation ---
ATTENDING PHYSICIAN: Dr. Irving Cox. TRANSFORMER REPAIRER: Dr. Norm Haile. REASON FOR CONSULTATION: Worsening kidney function, electrolyte imbalance and fluid management. HISTORY OF PRESENT ILLNESS: This is an 85-year-old male with past medical history of chronic kidney disease, who came in because of cough and congestion. A few days prior to admission, the patient developed cough and congestion. This was associated with yellowish phlegm. He was initiated on antibiotics and breathing treatments. However, condition did not improve and he was brought to the Emergency Room. His WBC was 10.1. Chest x-ray revealed right lower lobe infiltrate with possible small effusion. He was started on Levaquin. He had a history of chronic kidney disease. He came in with a BUN/creatinine of ____/ 3.3. He has chronic bilateral edema and on maintenance Lasix. He has no history of nausea and vomiting as well as diarrhea. PAST MEDICAL HISTORY: 1.Chronic kidney disease. 2.Right leg cellulitis. 3.History of CHF. 4.Anemia of chronic kidney disease. 5.BPH. 6.Hypothyroidism. 7.GERD. 8.Alzheimer dementia with behavioral disturbance. 9.Cardiomyopathy. 10.Anxiety disorder. 11.Dyslipidemia. 12.Essential hypertension. 13.DJD. CURRENT MEDICATIONS: He is currently on acetaminophen, albuterol, ascorbic acid, Lipitor, Carvedilol, Plavix, Colace, Lasix, Lactobacillus, magnesium hydroxide, multivitamins, probiotic, promethazine, tamsulosin, ceftriaxone. ALLERGIES: No known drug allergies. SOCIAL AND FAMILY HISTORY: I was unable to obtain directly from the patient because of his agitation and continuous spitting of sputum. REVIEW OF SYSTEMS: CONSTITUTIONAL: Again, I was unable to decipher directly from the patient. However, per transfer notes, patient's appetite had been fair, no fever, no chills. HEENT: No mention of headaches, no dizziness. CARDIORESPIRATORY: He came in because of cough and congestion with productive yellowish phlegm. At this point, he still has some moderate shortness of breath, and cough. He has no chest pain, palpitations, diaphoresis. GASTROINTESTINAL: No nausea and vomiting, abdominal pain or cramping, hematemesis, melena, hematochezia, no diarrhea. ENDOCRINE: No history of diabetes, has hypothyroidism and dyslipidemia. MUSCULOSKELETAL: Multiple joint arthralgias. GENITOURINARY: He has a history of chronic kidney disease. At this point, no dysuria, no hematuria. HEMATOLOGIC: He has a history of anemia, more likely of chronic kidney disease. NEUROPSYCHIATRIC: History of Alzheimer dementia with behavioral disturbance and anxiety. PHYSICAL EXAMINATION: GENERAL: The patient is agitated, irritated, aggressive, combative, unable to complete my physical examination. VITAL SIGNS: His temperature is 97.2 degrees, pulse is 83, blood pressure 114/81. SKIN: Poor turgor, warm, no rash, no jaundice appreciated. HEENT: Head normocephalic, atraumatic. EYES: Extraocular muscles intact. I was unable to assess his pupils because he was uncooperative. Nose, midline nasal septum. Mouth: Dry mucosa with poor dentition. NECK: Supple. No adenopathy, no thyromegaly, no bruits. CHEST AND CVS: S1, S2. No rub, murmur nor gallop appreciated. Unable to assess his point of maximal impulse due to not being cooperative. Decreased breath sounds, few rhonchi, no rales nor wheezes on auscultation. ABDOMEN: Globular, soft. Positive for bowel sounds. No bruits either diastolic or systolic. RECTAL: He refused. GENITOURINARY: He refused. MUSCULOSKELETAL: No effusions present in his joints, but unable to assess his range of motion because of refusal. EXTREMITIES: He does have 2+ pedal pitting edema, no cyanosis, no clubbing. Unable to assess his pulse because he does not want to be touched. NEUROLOGIC: The patient is awake, agitated, movement of all his extremities. LABORATORY DATA: Sodium 136, potassium 5.2, chloride 107, bicarbonate 19, BUN 91, creatinine 3.3, glucose is 118, calcium 8, BNP 3010, elevated LFTs. Albumin 2.5. TSH 0.97. White count 10.6, hemoglobin 14.5, hematocrit 43.6, polys 82%, platelets 107. 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 Chronic kidney disease is likely secondary to underlying hypertension giving raise to hypertensive nephrosclerosis. Acute kidney injury. He was prerenal initially. The patient was on continuous Lasix. He also has hypoalbuminemia with peripheral edema. Physical exam showed poor skin turgor with dry oral mucosa. These are all suggestive of dehydration giving raise to a decrease in effective circulating volume. His prerenal azotemia progressed to acute tubular injury. 2.Right lower lobe healthcare-acquired pneumonia. 3.Hyperkalemia, possibly due to kidney failure. 4.Elevated BNP also possibly due to kidney failure. 5.Anemia of chronic kidney disease. 6.Benign prostatic hypertrophy. 7.Hypothyroidism. 8.Alzheimer dementia. 9.Dyslipidemia. 10.Essential hypertension. 11.Degenerative joint disease. 12.Peripheral edema. 13.Liver failure, possibly due to fatty liver. PLAN: 1.Gentle hydration. 2.Follow up cultures. 3.Continue with antibiotics. 4.Urinalysis, urine sodium, eosinophils, albumin creatinine ratio, urine microalbumin to creatinine ratio. 5.Follow up electrolytes, CBC, chest x-ray, renal/abdominal ultrasound. 6.Discontinue Lasix for now and start some gentle hydration. Thank you, Dr. Cox for this consult. I will follow the patient closely with you. [facility]# [id number]
[2016-09-12 07:08] LABS: % BASOPHILS 0.4 % (0.0-2.0); % EOSINOPHILS 0.9 % (0.0-5.0); % LYMPHOCYTES 12.1 % (20.0-50.0); % MONOCYTES 9.2 % (2.0-10.0); % NEUTROPHILS 77.4 % (40.0-80.0); HEMATOCRIT 43.1 % (39.0-49.0); HEMOGLOBIN 14.3 gm/dL (12.6-17.4); MEAN CELL VOLUME 80.6 fl (80-99); MEAN CORPUSCULAR HEMOGLOBIN 26.8 pg (27.0-31.0); MEAN CORPUSCULAR HGB CONC 33.2 pg (28.0-36.0); MEAN PLATELET VOLUME 10.3 fl; NEUTROPHILE ABSOLUTE 7.6 Th/cmm (1.8-8.0); PLATELET COUNT 84 Th/cmm (150-400); RED BLOOD COUNT 5.35 Mil/cmm (3.80-5.80); RED CELL DISTRIBUTION WIDTH 17.5 % (11.5-20.0); WHITE BLOOD COUNT 9.8 Th/cmm (4.8-10.8)
[2016-09-12 07:18] LABS: URINE COLOR AMBER
[2016-09-12 07:19] LABS: URINE BILIRUBIN SMALL (NEGATIVE); URINE BLOOD TRACE (NEGATIVE); URINE GLUCOSE (UA) NEGATIVE (NEGATIVE); URINE KETONE NEGATIVE (NEGATIVE); URINE PROTEIN >300 mg/dL (NEGATIVE)
[2016-09-12 07:23] LABS: ALB/GLOB RATIO 0.7 (1.0-1.8); ALKALINE PHOSPHATASE 123 U/L (34-104); ANION GAP 16.9 (7.0-16.0); BILIRUBIN,TOTAL 2.6 mg/dL (0.3-1.0); BUN/CREATININE RATIO 28.8; CALCIUM SERUM 7.6 mg/dL (8.6-10.3); CARBON DIOXIDE 15.5 mEq/L (21.0-31.0); CHLORIDE 103 mEq/L (98-107); CREATININE - SERUM 3.3 mg/dL (0.7-1.3); GLUCOSE 119 mg/dL (70-105); POTASSIUM SERUM 5.4 mEq/L (3.5-5.1); SGOT 166 U/L (13-39); SGPT/ALT 220 U/L (7-52); SODIUM SERUM 130 mEq/L (136-145)
[2016-09-12 07:30] LABS: BUN - UREA NITROGEN 95 mg/dL (7-25)
[2016-09-12 08:07] LABS: URINE BACTERIA FEW /hpf (NONE SEEN); URINE EPITHELIAL CELLS FEW /lpf (FEW); URINE HYALINE CAST 0-2 /lpf (0-2); URINE RBC 0-2 /hpf (0-5); URINE WBC 0-2 /hpf (0-5)
[2016-09-12] MEDS: Multivitamin w/ Minerals Tab PO SCH (11:20)
[2016-09-12] MEDS: Lactobacillus Rhamnosus 10 Billion CFU Capsule PO SCH (11:20)
--- NOTE | 2016-09-12 11:26 | General Progress Note ---
Subjective - Review of Systems Service Date: 09/12/16 Subjective: Confused Objective - Results Result Diagrams: 09/12/16 06:30 09/12/16 06:30 Recent Labs: Laboratory Last Values WBC 9.8 Th/cmm (4.8-10.8) 09/12/16 06:30 RBC 5.35 Mil/cmm (3.80-5.80) 09/12/16 06:30 Hgb 14.3 gm/dL (12.6-17.4) 09/12/16 06:30 Hct 43.1 % (39.0-49.0) 09/12/16 06:30 MCV 80.6 fl (80-99) 09/12/16 06:30 MCH 26.8 pg (27.0-31.0) L 09/12/16 06:30 MCHC Differential 33.2 pg (28.0-36.0) 09/12/16 06:30 RDW 17.5 % (11.5-20.0) 09/12/16 06:30 Plt Count 84 Th/cmm (150-400) L 09/12/16 06:30 MPV 10.3 fl 09/12/16 06:30 Neutrophils % 77.4 % (40.0-80.0) 09/12/16 06:30 Band Neutrophils % 3 % (0-10) 09/11/16 05:01 Lymphocytes % 12.1 % (20.0-50.0) L 09/12/16 06:30 Monocytes % 9.2 % (2.0-10.0) 09/12/16 06:30 Eosinophils % 0.9 % (0.0-5.0) 09/12/16 06:30 Basophils % 0.4 % (0.0-2.0) 09/12/16 06:30 Neutrophils (Manual) 76 % (40-80) 09/11/16 05:01 Lymphocytes 11 % (20-50) L 09/11/16 05:01 Monocytes 8 % (2-10) 09/11/16 05:01 Eosinophils 2 % (0-5) 09/11/16 05:01 Platelet Estimate DECREASED PLATELETS (NORMAL) 09/11/16 05:01 Platelet Morphology NORMAL (NORMAL) 09/10/16 05:17 Polychromasia 1+ 09/10/16 05:17 Anisocytosis 1+ 09/09/16 17:39 RBC Morph Micro Appear ABNORMAL (NORMAL) 09/10/16 05:17 Eos Smear Source URINE 09/12/16 05:30 Eos Smear Total Cells NONE SEEN (NONE SEEN) 09/12/16 05:30 Sodium 130 mEq/L (136-145) L 09/12/16 06:30 Potassium 5.4 mEq/L (3.5-5.1) H 09/12/16 06:30 Chloride 103 mEq/L (98-107) 09/12/16 06:30 Carbon Dioxide 15.5 mEq/L (21.0-31.0) L 09/12/16 06:30 Anion Gap 16.9 (7.0-16.0) H 09/12/16 06:30 BUN 95 mg/dL (7-25) H* 09/12/16 06:30 Creatinine 3.3 mg/dL (0.7-1.3) H 09/12/16 06:30 Est GFR ( Amer) TNP 09/12/16 06:30 Est GFR (Non-Af Amer) TNP 09/12/16 06:30 BUN/Creatinine Ratio 28.8 09/12/16 06:30 Glucose 119 mg/dL (70-105) H 09/12/16 06:30 Calcium 7.6 mg/dL (8.6-10.3) L 09/12/16 06:30 Phosphorus 4.5 mg/dL (2.5-5.0) 09/11/16 05:01 Magnesium 2.8 mg/dL (1.9-2.7) H 09/11/16 05:01 Total Bilirubin 2.6 mg/dL (0.3-1.0) H 09/12/16 06:30 AST 166 U/L (13-39) H 09/12/16 06:30 ALT 220 U/L (7-52) H 09/12/16 06:30 Alkaline Phosphatase 123 U/L (34-104) H 09/12/16 06:30 Troponin I 0.06 ng/mL (0.01-0.05) H D 09/11/16 09:15 B-Natriuretic Peptide 3230.0 pg/mL (5.0-100.0) H 09/11/16 05:01 Total Protein 5.7 gm/dL (6.0-8.3) L 09/12/16 06:30 Albumin 2.3 gm/dL (4.2-5.5) L 09/12/16 06:30 Globulin 3.4 gm/dL 09/12/16 06:30 Albumin/Globulin Ratio 0.7 (1.0-1.8) L 09/12/16 06:30 TSH 0.97 uIU/ml (0.34-5.60) 09/09/16 17:39 Urine Source MIDSTREAM 09/12/16 05:30 Urine Color ALEC 09/12/16 05:30 Urine Clarity CLEAR (CLEAR) 09/12/16 05:30 Urine pH 5.0 09/12/16 05:30 Ur Specific [place] 1.030 (1.005-1.030) 09/12/16 05:30 Urine Protein >300 mg/dL (NEGATIVE) H 09/12/16 05:30 Urine Glucose (UA) NEGATIVE mg/dL (NEGATIVE) 09/12/16 05:30 Urine Ketones NEGATIVE mg/dL (NEGATIVE) 09/12/16 05:30 Urine Blood TRACE (NEGATIVE) 09/12/16 05:30 Urine Nitrate NEGATIVE (NEGATIVE) 09/12/16 05:30 Urine Bilirubin SMALL (NEGATIVE) H 09/12/16 05:30 Urine Urobilinogen 1.0 E.U./dL (0.2 - 1.0) 09/12/16 05:30 Ur Leukocyte Esterase NEGATIVE (NEGATIVE) 09/12/16 05:30 Urine RBC 0-2 /hpf (0-5) H 09/12/16 05:30 Urine WBC 0-2 /hpf (0-5) 09/12/16 05:30 Ur Epithelial Cells FEW /lpf (FEW) 09/12/16 05:30 Urine Bacteria FEW /hpf (NONE SEEN) 09/12/16 05:30 Hyaline Casts 0-2 /lpf (0-2) H 09/12/16 05:30 Ur Random Sodium 10 mmol/L 09/12/16 05:30 Urine Creatinine 200.0 mg/dl (39.0-259.0) 09/12/16 05:30 RPR NONREACTIVE (NONREACTIVE) 09/09/16 17:39 - Physical Exam Vitals and I&O: Vital Signs Temp 97.4 F 09/12/16 08:00 Pulse 88 09/12/16 10:58 Resp 16 09/12/16 10:58 BP 108/73 09/12/16 10:00 Pulse Ox 97 09/12/16 10:58 Intake & Output 09/11/16 09/12/16 09/12/16 18:59 06:59 18:59 Intake Total 933.75 1132.5 Output Total 200 Balance 933.75 932.5 Weight (lbs) 94.347 kg Intake: Intake, IV Amount 183.75 932.5 Sodium Chloride 0.9% 1, 183.75 932.5 000 ml @ 75 mls/hr IV . [id number] [facility] Rx#:[id number] Oral 750 200 Output: Urine 200 Other: # Voids 5 # Bowel Movements 0 0 Active Medications: Current Medications Acetaminophen (Tylenol) 650 mg PO Q4HR PRN PRN Reason: Pain Stop: 11/08/16 20:54 Albuterol/Ipratropium (Duoneb Neb) 3 ml HHN Q4HRT [facility] Stop: 11/09/16 10:59 Last Admin: 09/12/16 10:57 Dose: 3 ml Ascorbic Acid (Vitamin C) 500 mg PO DAILY [facility] Stop: 11/09/16 08:59 Last Admin: 09/11/16 08:41 Dose: 500 mg Atorvastatin Calcium (Lipitor) 10 mg PO HS [facility] PRN Reason: Protocol Stop: 11/08/16 20:59 Last Admin: 09/11/16 20:49 Dose: 10 mg Carvedilol (Coreg) 6.25 mg PO Q12H [facility] Stop: 11/08/16 20:59 Last Admin: 09/11/16 20:50 Dose: 6.25 mg Clopidogrel Bisulfate (Plavix) 75 mg PO DAILY [facility] Stop: 11/09/16 08:59 Last Admin: 09/11/16 08:41 Dose: 75 mg Docusate Sodium (Colace) 100 mg PO DAILY [facility] Stop: 11/09/16 08:59 Last Admin: 09/11/16 08:39 Dose: 100 mg Ceftriaxone Sodium 1 gm/ (Dextrose) 50 mls @ 100 mls/hr IV Q24H [facility] Stop: 11/09/16 20:59 Last Admin: 09/11/16 20:50 Dose: 100 mls/hr Sodium Chloride (Nacl 0.9%) 1,000 mls @ 75 mls/hr IV .[id number] [facility] Stop: 11/08/16 20:59 Last Admin: 09/11/16 21:11 Dose: 75 mls/hr Lactobacillus Rhamnosus (Culturelle) 1 each PO DAILY [facility] Stop: 11/10/16 08:59 Last Admin: 09/11/16 08:39 Dose: 1 each Magnesium Hydroxide (Milk Of Magnesia) 30 ml PO DAILY PRN PRN Reason: Constipation Stop: 11/08/16 20:54 Miscellaneous (Probiotic Screen) 1 ea PRN PRN PRN Reason: PROTOCOL Stop: 11/09/16 11:19 Miscellaneous (Vte Chemical Prophylaxis Screen/ Admission) 1 ea PRN PRN PRN Reason: PROTOCOL Stop: 11/09/16 17:18 Promethazine HCl/Dextromethorphan (Phenergan Dm 6.25/15mg-5 Ml) 5 ml PO Q4H PRN PRN Reason: Cough Stop: 11/09/16 07:02 Last Admin: 09/11/16 08:41 Dose: 5 ml Quetiapine Fumarate (Seroquel) 25 mg PO HS [facility] PRN Reason: Protocol Stop: 11/09/16 20:59 Last Admin: 09/11/16 20:52 Dose: 25 mg Tamsulosin HCl (Flomax) 0.4 mg PO HS [facility] Stop: 11/08/16 20:59 Last Admin: 09/11/16 20:52 Dose: 0.4 mg General: Other (Confused) HEENT: Atraumatic Neck: Supple Cardiovascular: Regular rate Lungs: Other (Bilateral cracking) Abdomen: Bowel sounds, Soft Extremities: Other (Edema 3+ in all extremities.) Neurological: Other (Non Ambulatory) Skin: Other (Warm and dry) Psych/Mental Status: Other (Confused) - Procedures Procedures: Procedures Procedure Code Date GROUP PSYCHOTHERAPY 00360 07/07/15 GROUP PSYCHOTHERAPY GZHZZZZ 07/07/15 OTHER GROUP THERAPY 94.44 10/17/13 Assessment/Plan - Problem List Patient Problems: All Active Problems Diabetes mellitus (Active) E11.9 Congestive heart failure (Acute) I50.9 Dementia with behavioral disturbance (Acute) F03.91 Hypothyroidism (Acute) E03.9 Mental health disorder (Acute) F99 Psychosis (Acute) F29 SEXUALLY INAPPROPRIATE BEHAVIOR (Acute) - Assessment Assessment: Patient is confused. BUN, Creatinine increasing. Thrombocytopenia worsening, Liver enzimes still high. Respiration improving, patient seems lethargic. Case discussed with family and were informed that patient is worsening despite treatment - Plan Plan: Will continue monitoring.
[2016-09-12] MEDS: Magnesium Hydroxide (MOM) 30 mL UDC PO PRN (11:30)
[2016-09-12] MEDS: Sodium Chloride 0.9% 1,000 ML IV SCH ×2 (13:08→15:00)
--- NOTE | 2016-09-12 14:06 | General Progress Note ---
Subjective - Review of Systems Service Date: 09/12/16 Subjective: more quiet today, less agitated Objective - Results Result Diagrams: 09/12/16 06:30 09/12/16 06:30 Recent Labs: Laboratory Last Values WBC 9.8 Th/cmm (4.8-10.8) 09/12/16 06:30 RBC 5.35 Mil/cmm (3.80-5.80) 09/12/16 06:30 Hgb 14.3 gm/dL (12.6-17.4) 09/12/16 06:30 Hct 43.1 % (39.0-49.0) 09/12/16 06:30 MCV 80.6 fl (80-99) 09/12/16 06:30 MCH 26.8 pg (27.0-31.0) L 09/12/16 06:30 MCHC Differential 33.2 pg (28.0-36.0) 09/12/16 06:30 RDW 17.5 % (11.5-20.0) 09/12/16 06:30 Plt Count 84 Th/cmm (150-400) L 09/12/16 06:30 MPV 10.3 fl 09/12/16 06:30 Neutrophils % 77.4 % (40.0-80.0) 09/12/16 06:30 Band Neutrophils % 3 % (0-10) 09/11/16 05:01 Lymphocytes % 12.1 % (20.0-50.0) L 09/12/16 06:30 Monocytes % 9.2 % (2.0-10.0) 09/12/16 06:30 Eosinophils % 0.9 % (0.0-5.0) 09/12/16 06:30 Basophils % 0.4 % (0.0-2.0) 09/12/16 06:30 Neutrophils (Manual) 76 % (40-80) 09/11/16 05:01 Lymphocytes 11 % (20-50) L 09/11/16 05:01 Monocytes 8 % (2-10) 09/11/16 05:01 Eosinophils 2 % (0-5) 09/11/16 05:01 Platelet Estimate DECREASED PLATELETS (NORMAL) 09/11/16 05:01 Platelet Morphology NORMAL (NORMAL) 09/10/16 05:17 Polychromasia 1+ 09/10/16 05:17 Anisocytosis 1+ 09/09/16 17:39 RBC Morph Micro Appear ABNORMAL (NORMAL) 09/10/16 05:17 Eos Smear Source URINE 09/12/16 05:30 Eos Smear Total Cells NONE SEEN (NONE SEEN) 09/12/16 05:30 Sodium 130 mEq/L (136-145) L 09/12/16 06:30 Potassium 5.4 mEq/L (3.5-5.1) H 09/12/16 06:30 Chloride 103 mEq/L (98-107) 09/12/16 06:30 Carbon Dioxide 15.5 mEq/L (21.0-31.0) L 09/12/16 06:30 Anion Gap 16.9 (7.0-16.0) H 09/12/16 06:30 BUN 95 mg/dL (7-25) H* 09/12/16 06:30 Creatinine 3.3 mg/dL (0.7-1.3) H 09/12/16 06:30 Est GFR ( Amer) TNP 09/12/16 06:30 Est GFR (Non-Af Amer) TNP 09/12/16 06:30 BUN/Creatinine Ratio 28.8 09/12/16 06:30 Glucose 119 mg/dL (70-105) H 09/12/16 06:30 Calcium 7.6 mg/dL (8.6-10.3) L 09/12/16 06:30 Phosphorus 4.5 mg/dL (2.5-5.0) 09/11/16 05:01 Magnesium 2.8 mg/dL (1.9-2.7) H 09/11/16 05:01 Total Bilirubin 2.6 mg/dL (0.3-1.0) H 09/12/16 06:30 AST 166 U/L (13-39) H 09/12/16 06:30 ALT 220 U/L (7-52) H 09/12/16 06:30 Alkaline Phosphatase 123 U/L (34-104) H 09/12/16 06:30 Troponin I 0.06 ng/mL (0.01-0.05) H D 09/11/16 09:15 B-Natriuretic Peptide 3230.0 pg/mL (5.0-100.0) H 09/11/16 05:01 Total Protein 5.7 gm/dL (6.0-8.3) L 09/12/16 06:30 Albumin 2.3 gm/dL (4.2-5.5) L 09/12/16 06:30 Globulin 3.4 gm/dL 09/12/16 06:30 Albumin/Globulin Ratio 0.7 (1.0-1.8) L 09/12/16 06:30 TSH 0.97 uIU/ml (0.34-5.60) 09/09/16 17:39 Urine Source MIDSTREAM 09/12/16 05:30 Urine Color ALEC 09/12/16 05:30 Urine Clarity CLEAR (CLEAR) 09/12/16 05:30 Urine pH 5.0 09/12/16 05:30 Ur Specific [place] 1.030 (1.005-1.030) 09/12/16 05:30 Urine Protein >300 mg/dL (NEGATIVE) H 09/12/16 05:30 Urine Glucose (UA) NEGATIVE mg/dL (NEGATIVE) 09/12/16 05:30 Urine Ketones NEGATIVE mg/dL (NEGATIVE) 09/12/16 05:30 Urine Blood TRACE (NEGATIVE) 09/12/16 05:30 Urine Nitrate NEGATIVE (NEGATIVE) 09/12/16 05:30 Urine Bilirubin SMALL (NEGATIVE) H 09/12/16 05:30 Urine Urobilinogen 1.0 E.U./dL (0.2 - 1.0) 09/12/16 05:30 Ur Leukocyte Esterase NEGATIVE (NEGATIVE) 09/12/16 05:30 Urine RBC 0-2 /hpf (0-5) H 09/12/16 05:30 Urine WBC 0-2 /hpf (0-5) 09/12/16 05:30 Ur Epithelial Cells FEW /lpf (FEW) 09/12/16 05:30 Urine Bacteria FEW /hpf (NONE SEEN) 09/12/16 05:30 Hyaline Casts 0-2 /lpf (0-2) H 09/12/16 05:30 Ur Random Sodium 10 mmol/L 09/12/16 05:30 Urine Creatinine 200.0 mg/dl (39.0-259.0) 09/12/16 05:30 RPR NONREACTIVE (NONREACTIVE) 09/09/16 17:39 - Physical Exam Vitals and I&O: Vital Signs Temp 97.4 F 09/12/16 08:00 Pulse 94 09/12/16 11:20 Resp 16 09/12/16 10:58 BP 116/75 09/12/16 11:20 Pulse Ox 97 09/12/16 10:58 Intake & Output 09/11/16 09/12/16 09/12/16 18:59 06:59 18:59 Intake Total 933.75 1132.5 1000 Output Total 200 Balance 933.75 932.5 1000 Weight (lbs) 94.347 kg Intake: Intake, IV Amount 183.75 932.5 1000 Sodium Chloride 0.9% 1, 183.75 932.5 1000 000 ml @ 75 mls/hr IV . [id number] [facility] Rx#:[id number] Oral 750 200 Output: Urine 200 Other: # Voids 5 # Bowel Movements 0 0 Active Medications: Current Medications Acetaminophen (Tylenol) 650 mg PO Q4HR PRN PRN Reason: Pain Stop: 11/08/16 20:54 Albuterol/Ipratropium (Duoneb Neb) 3 ml HHN Q4HRT [facility] Stop: 11/09/16 10:59 Last Admin: 09/12/16 10:57 Dose: 3 ml Ascorbic Acid (Vitamin C) 500 mg PO DAILY [facility] Stop: 11/09/16 08:59 Last Admin: 09/12/16 11:20 Dose: 500 mg Atorvastatin Calcium (Lipitor) 10 mg PO HS [facility] PRN Reason: Protocol Stop: 11/08/16 20:59 Last Admin: 09/11/16 20:49 Dose: 10 mg Carvedilol (Coreg) 6.25 mg PO Q12H [facility] Stop: 11/08/16 20:59 Last Admin: 09/12/16 11:20 Dose: 6.25 mg Clopidogrel Bisulfate (Plavix) 75 mg PO DAILY [facility] Stop: 11/09/16 08:59 Last Admin: 09/12/16 11:20 Dose: 75 mg Docusate Sodium (Colace) 100 mg PO DAILY [facility] Stop: 11/09/16 08:59 Last Admin: 09/12/16 11:20 Dose: 100 mg Ceftriaxone Sodium 1 gm/ (Dextrose) 50 mls @ 100 mls/hr IV Q24H [facility] Stop: 11/09/16 20:59 Last Admin: 09/11/16 20:50 Dose: 100 mls/hr Sodium Chloride (Nacl 0.9%) 1,000 mls @ 10 mls/hr IV .Q24H [facility] Stop: 11/08/16 20:59 Lactobacillus Rhamnosus (Culturelle) 1 each PO DAILY [facility] Stop: 11/10/16 08:59 Last Admin: 09/12/16 11:20 Dose: 1 each Magnesium Hydroxide (Milk Of Magnesia) 30 ml PO DAILY PRN PRN Reason: Constipation Stop: 11/08/16 20:54 Last Admin: 09/12/16 11:30 Dose: 30 ml Miscellaneous (Probiotic Screen) 1 ea PRN PRN PRN Reason: PROTOCOL Stop: 11/09/16 11:19 Miscellaneous (Vte Chemical Prophylaxis Screen/ Admission) 1 ea PRN PRN PRN Reason: PROTOCOL Stop: 11/09/16 17:18 Promethazine HCl/Dextromethorphan (Phenergan Dm 6.25/15mg-5 Ml) 5 ml PO Q4H PRN PRN Reason: Cough Stop: 11/09/16 07:02 Last Admin: 09/11/16 08:41 Dose: 5 ml Quetiapine Fumarate (Seroquel) 25 mg PO HS [facility] PRN Reason: Protocol Stop: 11/09/16 20:59 Last Admin: 09/11/16 20:52 Dose: 25 mg Tamsulosin HCl (Flomax) 0.4 mg PO HS [facility] Stop: 11/08/16 20:59 Last Admin: 09/11/16 20:52 Dose: 0.4 mg General: Mild distress HEENT: Atraumatic, Mucous membr. moist/pink Neck: Supple, +2 carotid pulse wo bruit Cardiovascular: Regular rate, Normal S1, Normal S2 Lungs: Other (rhonchi, no further wheeze) Abdomen: Bowel sounds, Soft, Obese Extremities: Edema (Upper ext; (+)3 bipedal edema) - Procedures Procedures: Procedures Procedure Code Date GROUP PSYCHOTHERAPY 32696 07/07/15 GROUP PSYCHOTHERAPY [id number] 07/07/15 OTHER GROUP THERAPY 94.44 10/17/13 Assessment/Plan - Problem List Patient Problems: All Active Problems Diabetes mellitus (Active) E11.9 Congestive heart failure (Acute) I50.9 Dementia with behavioral disturbance (Acute) F03.91 Hypothyroidism (Acute) E03.9 Mental health disorder (Acute) F99 Psychosis (Acute) F29 SEXUALLY INAPPROPRIATE BEHAVIOR (Acute) - Assessment Assessment: belia on ckd right lower lobe HAP hyperkalemia elevated BNP 2nd to ckd anemia of ckd BPH alhz dementia w/ behavioral disturbance HTN DJD peripheral edema elevated liver enzymes possibly fatty liver acute bronchospasm - Plan Plan: decrease ivf due to persistent lower ext edema continue breathing Tx cr. up to 3.3, elevated BNP likely due to ckd request abd, renal us f/u electrolytes cxr still w/ right lower lobe infiltrate, continue abx admisister 1 dose of lasix kidneys not responding well to diuretics, will need dialysis
[2016-09-13] MEDS: Albuterol/Ipratropium Neb 3 ML AERS HHN SCH ×6 (02:19→23:44)
--- NOTE | 2016-09-13 02:30 | Consultation ---
The patient of Dr. Cox. HISTORY AND PHYSICAL: This is an 85-year-old male patient who was at [facility]. The patient started complaining of shortness of breath. Following cough with expectoration, atypical chest pain, the patient came to the Emergency Room. The patient has slightly elevated troponin level and the patient was admitted to ICU. PAST MEDICAL HISTORY: Congestive heart failure, systolic dysfunction with cardiomyopathy, acute respiratory failure, right lower lobe pneumonia, right leg cellulitis, BPH, hypothyroidism, dementia, GERD, anxiety, hypertension ____ hepatitis. FAMILY HISTORY: Unremarkable. SOCIAL HISTORY: No history of smoking or alcohol abuse. ALLERGIES: No known allergies. PHYSICAL EXAMINATION: VITAL SIGNS: Blood pressure 150/80, pulse 78 and respirations 28. HEAD: Normocephalic. No lumps or bumps. EYES: Pupils are equal and reactive to light. Fundi show AV nicking, sclerae white, conjunctivae pink. NECK: Carotid 2+. Normal upstroke. JVD flat. Thyroid not palpable. Lymph nodes not palpable. CHEST: Shows increased AP diameter. No kyphosis or scoliosis. LUNGS: Bilateral breath sounds. HEART: PMI fifth intercostal space with lateral to midclavicular line. S1, S2. No S3, S4, soft systolic murmur, grade 2/6, lower left sternal border without radiation. ABDOMEN: Soft. Liver and spleen not palpable. No organomegaly. Bowel sounds are active. NEUROLOGIC: Unremarkable. EXTREMITIES: Peripheral pulses 2+. No pedal edema. CLINICAL IMPRESSION: 1. Troponin level slightly elevated secondary to CKD. 2. Atypical chest pain. 3. Congestive heart failure, systolic dysfunction, cardiomyopathy, right lower lobe pneumonia, right leg cellulitis, BPH, hypothyroidism, dementia, GERD, anxiety, hypertension, ____ hepatitis with elevated liver enzymes. PLAN: We will continue present care, have renal consult, possible dialysis and also get an echocardiogram. JOB# [id number]
[2016-09-13 05:15] LABS: WHITE BLOOD COUNT 10.3 Th/cmm (4.8-10.8)
[2016-09-13 05:16] LABS: % BASOPHILS 0.5 % (0.0-2.0); % EOSINOPHILS 1.3 % (0.0-5.0); % LYMPHOCYTES 11.2 % (20.0-50.0); % MONOCYTES 9.5 % (2.0-10.0); % NEUTROPHILS 77.5 % (40.0-80.0); HEMATOCRIT 45.1 % (39.0-49.0); HEMOGLOBIN 14.8 gm/dL (12.6-17.4); MEAN CELL VOLUME 80.6 fl (80-99); MEAN CORPUSCULAR HEMOGLOBIN 26.4 pg (27.0-31.0); MEAN CORPUSCULAR HGB CONC 32.7 pg (28.0-36.0); MEAN PLATELET VOLUME 10.3 fl; NEUTROPHILE ABSOLUTE 7.9 Th/cmm (1.8-8.0); PLATELET COUNT 78 Th/cmm (150-400); RED BLOOD COUNT 5.59 Mil/cmm (3.80-5.80); RED CELL DISTRIBUTION WIDTH 17.2 % (11.5-20.0)
[2016-09-13 05:54] LABS: ANION GAP 20.5 (7.0-16.0); BUN - UREA NITROGEN 7 mg/dL (7-25); CHLORIDE 98 mEq/L (98-107); GLUCOSE 70 mg/dL (70-105); POTASSIUM SERUM 3.5 mEq/L (3.5-5.1); SODIUM SERUM 136 mEq/L (136-145)
[2016-09-13 05:55] LABS: ALB/GLOB RATIO 1.2 (1.0-1.8); ALKALINE PHOSPHATASE 34 U/L (34-104); BILIRUBIN,TOTAL 0.3 mg/dL (0.3-1.0); BUN/CREATININE RATIO 11.7; CALCIUM SERUM 8.6 mg/dL (8.6-10.3); CREATININE - SERUM 0.6 mg/dL (0.7-1.3); SGOT 13 U/L (13-39); SGPT/ALT 7 U/L (7-52)
[2016-09-13 08:39] LABS: INR 2.04 (0.5-1.4); PROTHROMBIN TIME (TEST) 21.1 SECONDS (9.5-11.5)
--- NOTE | 2016-09-13 09:13 | General Progress Note ---
Subjective - Review of Systems Service Date: 09/13/16 Subjective: Confused Objective - Results Result Diagrams: 09/13/16 04:45 09/13/16 04:45 Recent Labs: Laboratory Last Values WBC 10.3 Th/cmm (4.8-10.8) 09/13/16 04:45 RBC 5.59 Mil/cmm (3.80-5.80) 09/13/16 04:45 Hgb 14.8 gm/dL (12.6-17.4) 09/13/16 04:45 Hct 45.1 % (39.0-49.0) 09/13/16 04:45 MCV 80.6 fl (80-99) 09/13/16 04:45 MCH 26.4 pg (27.0-31.0) L 09/13/16 04:45 MCHC Differential 32.7 pg (28.0-36.0) 09/13/16 04:45 RDW 17.2 % (11.5-20.0) 09/13/16 04:45 Plt Count 78 Th/cmm (150-400) L 09/13/16 04:45 MPV 10.3 fl 09/13/16 04:45 Neutrophils % 77.5 % (40.0-80.0) 09/13/16 04:45 Band Neutrophils % 3 % (0-10) 09/11/16 05:01 Lymphocytes % 11.2 % (20.0-50.0) L 09/13/16 04:45 Monocytes % 9.5 % (2.0-10.0) 09/13/16 04:45 Eosinophils % 1.3 % (0.0-5.0) 09/13/16 04:45 Basophils % 0.5 % (0.0-2.0) 09/13/16 04:45 Neutrophils (Manual) 76 % (40-80) 09/11/16 05:01 Lymphocytes 11 % (20-50) L 09/11/16 05:01 Monocytes 8 % (2-10) 09/11/16 05:01 Eosinophils 2 % (0-5) 09/11/16 05:01 Platelet Estimate DECREASED PLATELETS (NORMAL) 09/11/16 05:01 Platelet Morphology NORMAL (NORMAL) 09/10/16 05:17 Polychromasia 1+ 09/10/16 05:17 Anisocytosis 1+ 09/09/16 17:39 RBC Morph Micro Appear ABNORMAL (NORMAL) 09/10/16 05:17 Eos Smear Source URINE 09/12/16 05:30 Eos Smear Total Cells NONE SEEN (NONE SEEN) 09/12/16 05:30 PT 21.1 SECONDS (9.5-11.5) H 09/13/16 07:50 INR 2.04 (0.5-1.4) H 09/13/16 07:50 Sodium 136 mEq/L (136-145) 09/13/16 04:45 Potassium 3.5 mEq/L (3.5-5.1) 09/13/16 04:45 Chloride 98 mEq/L (98-107) 09/13/16 04:45 Carbon Dioxide 21.0 mEq/L (21.0-31.0) 09/13/16 04:45 Anion Gap 20.5 (7.0-16.0) H 09/13/16 04:45 BUN 7 mg/dL (7-25) 09/13/16 04:45 Creatinine 0.6 mg/dL (0.7-1.3) L 09/13/16 04:45 Est GFR ( Amer) TNP 09/13/16 04:45 Est GFR (Non-Af Amer) TNP 09/13/16 04:45 BUN/Creatinine Ratio 11.7 09/13/16 04:45 Glucose 70 mg/dL (70-105) 09/13/16 04:45 Calcium 8.6 mg/dL (8.6-10.3) 09/13/16 04:45 Phosphorus 4.5 mg/dL (2.5-5.0) 09/11/16 05:01 Magnesium 2.8 mg/dL (1.9-2.7) H 09/11/16 05:01 Total Bilirubin 0.3 mg/dL (0.3-1.0) 09/13/16 04:45 AST 13 U/L (13-39) 09/13/16 04:45 ALT 7 U/L (7-52) 09/13/16 04:45 Alkaline Phosphatase 34 U/L (34-104) 09/13/16 04:45 Ammonia 82 umol/L (16-53) H 09/13/16 07:50 Troponin I 0.06 ng/mL (0.01-0.05) H D 09/11/16 09:15 B-Natriuretic Peptide 3230.0 pg/mL (5.0-100.0) H 09/11/16 05:01 Total Protein 6.4 gm/dL (6.0-8.3) 09/13/16 04:45 Albumin 3.5 gm/dL (4.2-5.5) L 09/13/16 04:45 Globulin 2.9 gm/dL 09/13/16 04:45 Albumin/Globulin Ratio 1.2 (1.0-1.8) 09/13/16 04:45 TSH 0.97 uIU/ml (0.34-5.60) 09/09/16 17:39 Urine Source MIDSTREAM 09/12/16 05:30 Urine Color ALEC 09/12/16 05:30 Urine Clarity CLEAR (CLEAR) 09/12/16 05:30 Urine pH 5.0 09/12/16 05:30 Ur Specific [place] 1.030 (1.005-1.030) 09/12/16 05:30 Urine Protein >300 mg/dL (NEGATIVE) H 09/12/16 05:30 Urine Glucose (UA) NEGATIVE mg/dL (NEGATIVE) 09/12/16 05:30 Urine Ketones NEGATIVE mg/dL (NEGATIVE) 09/12/16 05:30 Urine Blood TRACE (NEGATIVE) 09/12/16 05:30 Urine Nitrate NEGATIVE (NEGATIVE) 09/12/16 05:30 Urine Bilirubin SMALL (NEGATIVE) H 09/12/16 05:30 Urine Urobilinogen 1.0 E.U./dL (0.2 - 1.0) 09/12/16 05:30 Ur Leukocyte Esterase NEGATIVE (NEGATIVE) 09/12/16 05:30 Urine RBC 0-2 /hpf (0-5) H 09/12/16 05:30 Urine WBC 0-2 /hpf (0-5) 09/12/16 05:30 Ur Epithelial Cells FEW /lpf (FEW) 09/12/16 05:30 Urine Bacteria FEW /hpf (NONE SEEN) 09/12/16 05:30 Hyaline Casts 0-2 /lpf (0-2) H 09/12/16 05:30 Ur Random Sodium 10 mmol/L 09/12/16 05:30 Urine Creatinine 200.0 mg/dl (39.0-259.0) 09/12/16 05:30 RPR NONREACTIVE (NONREACTIVE) 09/09/16 17:39 - Physical Exam Vitals and I&O: Vital Signs Temp 97.3 F 09/13/16 08:00 Pulse 86 09/13/16 08:00 Resp 17 09/13/16 08:00 BP 116/81 09/13/16 08:00 Pulse Ox 99 09/13/16 08:00 Intake & Output 09/12/16 09/13/16 09/13/16 18:59 06:59 18:59 Intake Total 1350 50 Output Total 25 Balance 1325 50 Intake: Intake, IV Amount 1000 50 Sodium Chloride 0.9% 1, 1000 000 ml @ 75 mls/hr IV . [id number] [facility] Rx#:[id number] cefTRIAXone 1 gm In 50 Dextrose 5% 50 ml @ 100 mls/hr IV Q24H [facility] Rx#: [id number] Oral 350 Output: Urine 25 Other: # Bowel Movements 1 Stool Characteristics Liquid Active Medications: Current Medications Acetaminophen (Tylenol) 650 mg PO Q4HR PRN PRN Reason: Pain Stop: 11/08/16 20:54 Albuterol/Ipratropium (Duoneb Neb) 3 ml HHN Q4HRT [facility] Stop: 11/09/16 10:59 Last Admin: 09/13/16 07:32 Dose: 3 ml Ascorbic Acid (Vitamin C) 500 mg PO DAILY [facility] Stop: 11/09/16 08:59 Last Admin: 09/12/16 11:20 Dose: 500 mg Carvedilol (Coreg) 6.25 mg PO Q12H [facility] Stop: 11/08/16 20:59 Last Admin: 09/12/16 21:09 Dose: 6.25 mg Docusate Sodium (Colace) 100 mg PO DAILY [facility] Stop: 11/09/16 08:59 Last Admin: 09/12/16 11:20 Dose: 100 mg Furosemide (Lasix) 40 mg IVP BID [facility] Stop: 11/11/16 16:59 Last Admin: 09/12/16 18:16 Dose: 40 mg Ceftriaxone Sodium 1 gm/ (Dextrose) 50 mls @ 100 mls/hr IV Q24H [facility] Stop: 11/09/16 20:59 Last Infusion: 09/12/16 21:40 Dose: Infused Sodium Chloride (Nacl 0.9%) 1,000 mls @ 10 mls/hr IV .Q24H [facility] Stop: 11/08/16 20:59 Last Admin: 09/12/16 15:00 Dose: 10 mls/hr Lactobacillus Rhamnosus (Culturelle) 1 each PO DAILY [facility] Stop: 11/10/16 08:59 Last Admin: 09/12/16 11:20 Dose: 1 each Magnesium Hydroxide (Milk Of Magnesia) 30 ml PO DAILY PRN PRN Reason: Constipation Stop: 11/08/16 20:54 Last Admin: 09/12/16 11:30 Dose: 30 ml Miscellaneous (Probiotic Screen) 1 ea PRN PRN PRN Reason: PROTOCOL Stop: 11/09/16 11:19 Miscellaneous (Vte Chemical Prophylaxis Screen/ Admission) 1 ea PRN PRN PRN Reason: PROTOCOL Stop: 11/09/16 17:18 Promethazine HCl/Dextromethorphan (Phenergan Dm 6.25/15mg-5 Ml) 5 ml PO Q4H PRN PRN Reason: Cough Stop: 11/09/16 07:02 Last Admin: 09/11/16 08:41 Dose: 5 ml Quetiapine Fumarate (Seroquel) 25 mg PO HS [facility] PRN Reason: Protocol Stop: 11/09/16 20:59 Last Admin: 09/12/16 21:11 Dose: 25 mg Tamsulosin HCl (Flomax) 0.4 mg PO HS [facility] Stop: 11/08/16 20:59 Last Admin: 09/12/16 21:09 Dose: 0.4 mg General: Alert, Other (Confused) HEENT: Atraumatic Neck: Supple Cardiovascular: Regular rate Lungs: Other (Bilateral crackles) Abdomen: Bowel sounds, Soft Extremities: Other (Edema of all extremities 1+) Neurological: Other (Non Ambulatory) Skin: Other (Warm and dry) Psych/Mental Status: Other (Confused) - Procedures Procedures: Procedures Procedure Code Date GROUP PSYCHOTHERAPY 94482 07/07/15 GROUP PSYCHOTHERAPY GZHZZZZ 07/07/15 OTHER GROUP THERAPY 94.44 10/17/13 Assessment/Plan - Problem List Patient Problems: All Active Problems Diabetes mellitus (Active) E11.9 Congestive heart failure (Acute) I50.9 Dementia with behavioral disturbance (Acute) F03.91 Hypothyroidism (Acute) E03.9 Mental health disorder (Acute) F99 Psychosis (Acute) F29 SEXUALLY INAPPROPRIATE BEHAVIOR (Acute) - Assessment Assessment: Patient is confused. Thrombocytopenia worsening. Respiration improving, patient seems lethargic. Case discussed with family and were informed that patient is worsening despite treatment and possible HD will be needed. - Plan Plan: Plavix is DC. Will continue monitoring.
[2016-09-13] MEDS: Lactobacillus Rhamnosus 10 Billion CFU Capsule PO SCH (09:29)
[2016-09-13] MEDS: Multivitamin w/ Minerals Tab PO SCH (09:29)
--- NOTE | 2016-09-13 11:05 | Diagnostic Imaging Report ---
Portable chest x-ray HISTORY: Pneumonia Compared to prior exam of 09/11/2016, the heart remains enlarged. There is minimal residual infiltrate in the right lower lobe. No other focal processes. IMPRESSION: 1. Improvement with minimal residual infiltrate in the right lower lobe since 09/11/2016. 2. Persistent cardiomegaly
[2016-09-13 11:14] LABS: ALB/GLOB RATIO 0.7 (1.0-1.8); ALKALINE PHOSPHATASE 114 U/L (34-104); ANION GAP 14.1 (7.0-16.0); BILIRUBIN,TOTAL 3.1 mg/dL (0.3-1.0); CALCIUM SERUM 7.8 mg/dL (8.6-10.3); CARBON DIOXIDE 14.5 mEq/L (21.0-31.0); CHLORIDE 105 mEq/L (98-107); CREATININE - SERUM 3.5 mg/dL (0.7-1.3); GLUCOSE 98 mg/dL (70-105); SGOT 86 U/L (13-39); SGPT/ALT 150 U/L (7-52); SODIUM SERUM 128 mEq/L (136-145)
[2016-09-13 11:37] LABS: BUN - UREA NITROGEN 105 mg/dL (7-25); POTASSIUM SERUM 5.6 mEq/L (3.5-5.1)
--- NOTE | 2016-09-13 11:37 | Diagnostic Imaging Report ---
Abdominal ultrasound HISTORY: Abnormal liver function test Exam is very limited and suboptimal due to lack of patient cooperation. No focal lesions seen within the liver. Low-level intraluminal echoes are seen within the distended gallbladder. Findings may be associated with "sludge". Small calculi are difficult to exclude. No biliary dilatation. The pancreas cannot be seen due to bowel gas. There is incomplete visualization of the right kidney. No hydronephrosis. No definite focal lesions or hydronephrosis involving the left kidney. The spleen is normal in size. No other retroperitoneal or intra-abdominal abnormalities. IMPRESSION: 1. Limited and suboptimal exam due to lack of patient cooperation 2. Somewhat distended gallbladder with low-level intraluminal echoes that may be related to "sludge". Small calculi are difficult to exclude.
--- NOTE | 2016-09-13 13:30 | General Progress Note ---
Subjective - Review of Systems Service Date: 09/13/16 Subjective: stuporous, less agitated Objective - Results Result Diagrams: 09/13/16 04:45 09/13/16 10:30 Recent Labs: Laboratory Last Values WBC 10.3 Th/cmm (4.8-10.8) 09/13/16 04:45 RBC 5.59 Mil/cmm (3.80-5.80) 09/13/16 04:45 Hgb 14.8 gm/dL (12.6-17.4) 09/13/16 04:45 Hct 45.1 % (39.0-49.0) 09/13/16 04:45 MCV 80.6 fl (80-99) 09/13/16 04:45 MCH 26.4 pg (27.0-31.0) L 09/13/16 04:45 MCHC Differential 32.7 pg (28.0-36.0) 09/13/16 04:45 RDW 17.2 % (11.5-20.0) 09/13/16 04:45 Plt Count 78 Th/cmm (150-400) L 09/13/16 04:45 MPV 10.3 fl 09/13/16 04:45 Neutrophils % 77.5 % (40.0-80.0) 09/13/16 04:45 Band Neutrophils % 3 % (0-10) 09/11/16 05:01 Lymphocytes % 11.2 % (20.0-50.0) L 09/13/16 04:45 Monocytes % 9.5 % (2.0-10.0) 09/13/16 04:45 Eosinophils % 1.3 % (0.0-5.0) 09/13/16 04:45 Basophils % 0.5 % (0.0-2.0) 09/13/16 04:45 Neutrophils (Manual) 76 % (40-80) 09/11/16 05:01 Lymphocytes 11 % (20-50) L 09/11/16 05:01 Monocytes 8 % (2-10) 09/11/16 05:01 Eosinophils 2 % (0-5) 09/11/16 05:01 Platelet Estimate DECREASED PLATELETS (NORMAL) 09/11/16 05:01 Platelet Morphology NORMAL (NORMAL) 09/10/16 05:17 Polychromasia 1+ 09/10/16 05:17 Anisocytosis 1+ 09/09/16 17:39 RBC Morph Micro Appear ABNORMAL (NORMAL) 09/10/16 05:17 Eos Smear Source URINE 09/12/16 05:30 Eos Smear Total Cells NONE SEEN (NONE SEEN) 09/12/16 05:30 PT 21.1 SECONDS (9.5-11.5) H 09/13/16 07:50 INR 2.04 (0.5-1.4) H 09/13/16 07:50 Sodium 128 mEq/L (136-145) L 09/13/16 10:30 Potassium 5.6 mEq/L (3.5-5.1) H D 09/13/16 10:30 Chloride 105 mEq/L (98-107) 09/13/16 10:30 Carbon Dioxide 14.5 mEq/L (21.0-31.0) L 09/13/16 10:30 Anion Gap 14.1 (7.0-16.0) 09/13/16 10:30 BUN 105 mg/dL (7-25) H* 09/13/16 10:30 Creatinine 3.5 mg/dL (0.7-1.3) H 09/13/16 10:30 Est GFR ( Amer) TNP 09/13/16 10:30 Est GFR (Non-Af Amer) TNP 09/13/16 10:30 BUN/Creatinine Ratio 30.0 09/13/16 10:30 Glucose 98 mg/dL (70-105) 09/13/16 10:30 Calcium 7.8 mg/dL (8.6-10.3) L 09/13/16 10:30 Phosphorus 4.5 mg/dL (2.5-5.0) 09/11/16 05:01 Magnesium 2.8 mg/dL (1.9-2.7) H 09/11/16 05:01 Total Bilirubin 3.1 mg/dL (0.3-1.0) H 09/13/16 10:30 AST 86 U/L (13-39) H 09/13/16 10:30 ALT 150 U/L (7-52) H 09/13/16 10:30 Alkaline Phosphatase 114 U/L (34-104) H 09/13/16 10:30 Ammonia 82 umol/L (16-53) H 09/13/16 07:50 Troponin I 0.06 ng/mL (0.01-0.05) H D 09/11/16 09:15 B-Natriuretic Peptide 3230.0 pg/mL (5.0-100.0) H 09/11/16 05:01 Total Protein 5.6 gm/dL (6.0-8.3) L 09/13/16 10:30 Albumin 2.2 gm/dL (4.2-5.5) L 09/13/16 10:30 Globulin 3.4 gm/dL 09/13/16 10:30 Albumin/Globulin Ratio 0.7 (1.0-1.8) L 09/13/16 10:30 TSH 0.97 uIU/ml (0.34-5.60) 09/09/16 17:39 Urine Source MIDSTREAM 09/12/16 05:30 Urine Color ALEC 09/12/16 05:30 Urine Clarity CLEAR (CLEAR) 09/12/16 05:30 Urine pH 5.0 09/12/16 05:30 Ur Specific [place] 1.030 (1.005-1.030) 09/12/16 05:30 Urine Protein >300 mg/dL (NEGATIVE) H 09/12/16 05:30 Urine Glucose (UA) NEGATIVE mg/dL (NEGATIVE) 09/12/16 05:30 Urine Ketones NEGATIVE mg/dL (NEGATIVE) 09/12/16 05:30 Urine Blood TRACE (NEGATIVE) 09/12/16 05:30 Urine Nitrate NEGATIVE (NEGATIVE) 09/12/16 05:30 Urine Bilirubin SMALL (NEGATIVE) H 09/12/16 05:30 Urine Urobilinogen 1.0 E.U./dL (0.2 - 1.0) 09/12/16 05:30 Ur Leukocyte Esterase NEGATIVE (NEGATIVE) 09/12/16 05:30 Urine RBC 0-2 /hpf (0-5) H 09/12/16 05:30 Urine WBC 0-2 /hpf (0-5) 09/12/16 05:30 Ur Epithelial Cells FEW /lpf (FEW) 09/12/16 05:30 Urine Bacteria FEW /hpf (NONE SEEN) 09/12/16 05:30 Hyaline Casts 0-2 /lpf (0-2) H 09/12/16 05:30 Ur Random Sodium 10 mmol/L 09/12/16 05:30 Urine Creatinine 200.0 mg/dl (39.0-259.0) 09/12/16 05:30 RPR NONREACTIVE (NONREACTIVE) 09/09/16 17:39 - Physical Exam Vitals and I&O: Vital Signs Temp 97.3 F 09/13/16 08:00 Pulse 86 09/13/16 11:38 Resp 20 09/13/16 11:39 BP 125/70 09/13/16 09:29 Pulse Ox 98 09/13/16 11:38 Intake & Output 09/12/16 09/13/16 09/13/16 18:59 06:59 18:59 Intake Total 1350 50 Output Total 25 Balance 1325 50 Intake: Intake, IV Amount 1000 50 Sodium Chloride 0.9% 1, 1000 000 ml @ 75 mls/hr IV . [id number] [facility] Rx#:[id number] cefTRIAXone 1 gm In 50 Dextrose 5% 50 ml @ 100 mls/hr IV Q24H [facility] Rx#: [id number] Oral 350 Output: Urine 25 Other: # Bowel Movements 1 Stool Characteristics Liquid Active Medications: Current Medications Acetaminophen (Tylenol) 650 mg PO Q4HR PRN PRN Reason: Pain Stop: 11/08/16 20:54 Albuterol/Ipratropium (Duoneb Neb) 3 ml HHN Q4HRT [facility] Stop: 11/09/16 10:59 Last Admin: 09/13/16 11:36 Dose: 3 ml Ascorbic Acid (Vitamin C) 500 mg PO DAILY [facility] Stop: 11/09/16 08:59 Last Admin: 09/13/16 09:25 Dose: 500 mg Carvedilol (Coreg) 6.25 mg PO Q12H [facility] Stop: 11/08/16 20:59 Last Admin: 09/13/16 09:26 Dose: 6.25 mg Docusate Sodium (Colace) 100 mg PO DAILY [facility] Stop: 11/09/16 08:59 Last Admin: 09/13/16 09:29 Dose: 100 mg Furosemide (Lasix) 40 mg IVP BID [facility] Stop: 11/11/16 16:59 Last Admin: 09/13/16 09:29 Dose: 40 mg Ceftriaxone Sodium 1 gm/ (Dextrose) 50 mls @ 100 mls/hr IV Q24H [facility] Stop: 11/09/16 20:59 Last Infusion: 09/12/16 21:40 Dose: Infused Sodium Chloride (Nacl 0.9%) 1,000 mls @ 10 mls/hr IV .Q24H [facility] Stop: 11/08/16 20:59 Last Admin: 09/12/16 15:00 Dose: 10 mls/hr Lactobacillus Rhamnosus (Culturelle) 1 each PO DAILY [facility] Stop: 11/10/16 08:59 Last Admin: 09/13/16 09:29 Dose: 1 each Magnesium Hydroxide (Milk Of Magnesia) 30 ml PO DAILY PRN PRN Reason: Constipation Stop: 11/08/16 20:54 Last Admin: 09/12/16 11:30 Dose: 30 ml Miscellaneous (Probiotic Screen) 1 ea PRN PRN PRN Reason: PROTOCOL Stop: 11/09/16 11:19 Miscellaneous (Vte Chemical Prophylaxis Screen/ Admission) 1 [facility] PRN PRN PRN Reason: PROTOCOL Stop: 11/09/16 17:18 Miscellaneous (Clinical Monitoring) 1 [facility] PRN PRN PRN Reason: RENAL DOSING Stop: 11/12/16 12:53 Promethazine HCl/Dextromethorphan (Phenergan Dm 6.25/15mg-5 Ml) 5 ml PO Q4H PRN PRN Reason: Cough Stop: 11/09/16 07:02 Last Admin: 09/11/16 08:41 Dose: 5 ml Quetiapine Fumarate (Seroquel) 25 mg PO HS [facility] PRN Reason: Protocol Stop: 11/09/16 20:59 Last Admin: 09/12/16 21:11 Dose: 25 mg Tamsulosin HCl (Flomax) 0.4 mg PO HS [facility] Stop: 11/08/16 20:59 Last Admin: 09/12/16 21:09 Dose: 0.4 mg General: Mild distress HEENT: Atraumatic, Mucous membr. moist/pink Neck: Supple, +2 carotid pulse wo bruit Cardiovascular: Regular rate, Normal S1, Normal S2 Lungs: Other (rhonchi, few rales) Abdomen: Bowel sounds, Other (globular) Extremities: Edema ((+) 3 bipedal edema) Neurological: Sensation intact Skin: no Rash - Procedures Procedures: Procedures Procedure Code Date [facility] 58051 07/07/15 GROUP PSYCHOTHERAPY GZHZZZZ 07/07/15 OTHER GROUP THERAPY 94.44 10/17/13 Assessment/Plan - Problem List Patient Problems: All Active Problems Diabetes mellitus (Active) E11.9 Congestive heart failure (Acute) I50.9 Dementia with behavioral disturbance (Acute) F03.91 Hypothyroidism (Acute) E03.9 Mental health disorder (Acute) F99 Psychosis (Acute) F29 SEXUALLY INAPPROPRIATE BEHAVIOR (Acute) - Assessment Assessment: belia on ckd right lower lobe HAP hyperkalemia elevated BNP 2nd to ckd anemia of ckd BPH alhz dementia w/ behavioral disturbance HTN DJD peripheral edema elevated liver enzymes possibly fatty liver acute bronchospasm GB calculi, distended GB but no dilatation - Plan Plan: decrease ivf due to persistent lower ext edema continue breathing Tx cr. up to 3.5, elevated BNP likely due to ckd administer kayexalate for elevated K f/u electrolytes cxr still w/ right lower lobe infiltrate, continue abx admisister 1 dose of lasix kidneys not responding well to diuretics, will need dialysis family deciding about dialysis
[2016-09-13] MEDS ORDERED: Sodium Bicarbonate 8.4% 50mEq PFS IVP ONE (13:31)
[2016-09-13] MEDS: Lactulose 10 Gm/15 mL 30mL UDC PO SCH (14:39)
--- NOTE | 2016-09-13 17:22 | Cardiology ---
Patient of Dr. Roger. M-MODE ECHOCARDIOGRAM: Mitral valve, anterior leaflet of the mitral valve shows decreased excursion, EF velocity. Posterior leaflet of mitral valve shows decreased excursion. Left ventricular posterior wall shows increased thickness, decreased excursion. Interventricular septum shows increased thickness, decreased excursion. Ejection fraction 10-15%. Left atrium enlarged 4.8 cm. Aortic root showed normal dimension, normal excursion of aortic leaflets. CONCLUSION: Hypertrophy of the left ventricle, global hypokinesis, cardiomyopathy, ejection fraction 10-15%. 2D ECHO: Long axis view showed hypertrophy of the left ventricle with global hypokinesis, ejection fraction 10-15%, left atrial enlargement. Aortic root showed normal dimension, normal excursion of aortic leaflets. Short axis view mitral valve normal. Short view aortic valve normal. Apical four chamber view shows enlarged left ventricular cavity with decreased ejection fraction. Left atrium enlarged. Right ventricular cavity normal. Right atrial enlargement. CONCLUSION: Right atrial enlargement. Hypertrophy of the left ventricle, cardiomyopathy 10-15%. Doppler study shows trace mitral regurgitation, mild aortic regurgitation, and severe tricuspid regurgitation. Right ventricular systolic pressure of 60 mmHg with moderate pulmonary hypertension. JOB# [id number]
--- NOTE | 2016-09-13 19:43 | Consultation ---
EMERGENT VASCULAR CONSULT REFERRING PHYSICIAN: Dr. Cox/Dr. Gutiérrez. REASON FOR CONSULTATION: Acute renal failure on chronic kidney disease. Thank you for referring this patient to me. HISTORY OF PRESENT ILLNESS: This is an 85-year-old male with known history of chronic kidney disease. The patient came in because of cough and right lower infiltrate and treated for this. The patient has known dementia for about 4 years. He and noncooperative. LABORATORY STUDIES: Now show the hemoglobin at 14.8, the platelet count is low at 78,000. Chemistry: The potassium is 5.6 with BUN of 105 and creatinine of 3.5. Total bilirubin is elevated to 3.1. AST, ALT, and phosphatase are also elevated. PHYSICAL EXAMINATION: GENERAL: The patient speaks both Kosovan and [place]ian, but very uncooperative. He complains of pain, which is non-site specific. Discussion was made with the daughters regarding the risks of placement of catheter, and the patient's low platelet count. The pros and cons of the procedure and possible complications discussed and they are going to call their mother and decide what to do. Thank you for this consultation. JOB# [id number]
[2016-09-14] MEDS: Albuterol/Ipratropium Neb 3 ML AERS HHN SCH ×6 (02:06→23:05)
[2016-09-14 08:28] LABS: INR 1.92 (0.5-1.4); PROTHROMBIN TIME (TEST) 19.8 SECONDS (9.5-11.5)
[2016-09-14 08:29] LABS: ALB/GLOB RATIO 0.6 (1.0-1.8); ALKALINE PHOSPHATASE 103 U/L (34-104); ANION GAP 12.4 (7.0-16.0); BILIRUBIN,TOTAL 2.8 mg/dL (0.3-1.0); BUN/CREATININE RATIO 30.9; CALCIUM SERUM 7.9 mg/dL (8.6-10.3); CARBON DIOXIDE 19.3 mEq/L (21.0-31.0); CHLORIDE 105 mEq/L (98-107); CREATININE - SERUM 3.4 mg/dL (0.7-1.3); GLUCOSE 95 mg/dL (70-105); POTASSIUM SERUM 4.7 mEq/L (3.5-5.1); SGOT 67 U/L (13-39); SGPT/ALT 111 U/L (7-52); SODIUM SERUM 132 mEq/L (136-145)
[2016-09-14 08:33] LABS: BUN - UREA NITROGEN 105 mg/dL (7-25)
--- NOTE | 2016-09-14 08:35 | General Progress Note ---
Subjective - Review of Systems Service Date: 09/14/16 Subjective: I am hungry, this food taste so bad Objective - Results Result Diagrams: 09/13/16 04:45 09/13/16 10:30 Recent Labs: Laboratory Last Values WBC 10.3 Th/cmm (4.8-10.8) 09/13/16 04:45 RBC 5.59 Mil/cmm (3.80-5.80) 09/13/16 04:45 Hgb 14.8 gm/dL (12.6-17.4) 09/13/16 04:45 Hct 45.1 % (39.0-49.0) 09/13/16 04:45 MCV 80.6 fl (80-99) 09/13/16 04:45 MCH 26.4 pg (27.0-31.0) L 09/13/16 04:45 MCHC Differential 32.7 pg (28.0-36.0) 09/13/16 04:45 RDW 17.2 % (11.5-20.0) 09/13/16 04:45 Plt Count 78 Th/cmm (150-400) L 09/13/16 04:45 MPV 10.3 fl 09/13/16 04:45 Neutrophils % 77.5 % (40.0-80.0) 09/13/16 04:45 Band Neutrophils % 3 % (0-10) 09/11/16 05:01 Lymphocytes % 11.2 % (20.0-50.0) L 09/13/16 04:45 Monocytes % 9.5 % (2.0-10.0) 09/13/16 04:45 Eosinophils % 1.3 % (0.0-5.0) 09/13/16 04:45 Basophils % 0.5 % (0.0-2.0) 09/13/16 04:45 Neutrophils (Manual) 76 % (40-80) 09/11/16 05:01 Lymphocytes 11 % (20-50) L 09/11/16 05:01 Monocytes 8 % (2-10) 09/11/16 05:01 Eosinophils 2 % (0-5) 09/11/16 05:01 Platelet Estimate DECREASED PLATELETS (NORMAL) 09/11/16 05:01 Platelet Morphology NORMAL (NORMAL) 09/10/16 05:17 Polychromasia 1+ 01/06/17 05:17 Anisocytosis 1+ 09/09/16 17:39 RBC Morph Micro Appear ABNORMAL (NORMAL) 09/10/16 05:17 Eos Smear Source URINE 09/12/16 05:30 Eos Smear Total Cells NONE SEEN (NONE SEEN) 09/12/16 05:30 PT 21.1 SECONDS (9.5-11.5) H 09/13/16 07:50 INR 2.04 (0.5-1.4) H 09/13/16 07:50 Sodium 128 mEq/L (136-145) L 09/13/16 10:30 Potassium 5.6 mEq/L (3.5-5.1) H D 09/13/16 10:30 Chloride 105 mEq/L (98-107) 09/13/16 10:30 Carbon Dioxide 14.5 mEq/L (21.0-31.0) L 09/13/16 10:30 Anion Gap 14.1 (7.0-16.0) 09/13/16 10:30 BUN 105 mg/dL (7-25) H* 09/13/16 10:30 Creatinine 3.5 mg/dL (0.7-1.3) H 09/13/16 10:30 Est GFR ( Amer) TNP 09/13/16 10:30 Est GFR (Non-Af Amer) TNP 09/13/16 10:30 BUN/Creatinine Ratio 30.0 09/13/16 10:30 Glucose 98 mg/dL (70-105) 09/13/16 10:30 Calcium 7.8 mg/dL (8.6-10.3) L 09/13/16 10:30 Phosphorus 4.5 mg/dL (2.5-5.0) 09/11/16 05:01 Magnesium 2.8 mg/dL (1.9-2.7) H 09/11/16 05:01 Total Bilirubin 3.1 mg/dL (0.3-1.0) H 09/13/16 10:30 AST 86 U/L (13-39) H 09/13/16 10:30 ALT 150 U/L (7-52) H 09/13/16 10:30 Alkaline Phosphatase 114 U/L (34-104) H 09/13/16 10:30 Ammonia 74 umol/L (16-53) H 09/14/16 08:00 Troponin I 0.06 ng/mL (0.01-0.05) H D 09/11/16 09:15 B-Natriuretic Peptide 3230.0 pg/mL (5.0-100.0) H 09/11/16 05:01 Total Protein 5.6 gm/dL (6.0-8.3) L 09/13/16 10:30 Albumin 2.2 gm/dL (4.2-5.5) L 09/13/16 10:30 Globulin 3.4 gm/dL 09/13/16 10:30 Albumin/Globulin Ratio 0.7 (1.0-1.8) L 09/13/16 10:30 TSH 0.97 uIU/ml (0.34-5.60) 09/09/16 17:39 Urine Source MIDSTREAM 09/12/16 05:30 Urine Color ALEC 09/12/16 05:30 Urine Clarity CLEAR (CLEAR) 09/12/16 05:30 Urine pH 5.0 09/12/16 05:30 Ur Specific [place] 1.030 (1.005-1.030) 09/12/16 05:30 Urine Protein >300 mg/dL (NEGATIVE) H 09/12/16 05:30 Urine Glucose (UA) NEGATIVE mg/dL (NEGATIVE) 09/12/16 05:30 Urine Ketones NEGATIVE mg/dL (NEGATIVE) 09/12/16 05:30 Urine Blood TRACE (NEGATIVE) 09/12/16 05:30 Urine Nitrate NEGATIVE (NEGATIVE) 09/12/16 05:30 Urine Bilirubin SMALL (NEGATIVE) H 09/12/16 05:30 Urine Urobilinogen 1.0 E.U./dL (0.2 - 1.0) 09/12/16 05:30 Ur Leukocyte Esterase NEGATIVE (NEGATIVE) 09/12/16 05:30 Urine RBC 0-2 /hpf (0-5) H 09/12/16 05:30 Urine WBC 0-2 /hpf (0-5) 09/12/16 05:30 Ur Epithelial Cells FEW /lpf (FEW) 09/12/16 05:30 Urine Bacteria FEW /hpf (NONE SEEN) 09/12/16 05:30 Hyaline Casts 0-2 /lpf (0-2) H 09/12/16 05:30 Ur Random Sodium 10 mmol/L 09/12/16 05:30 Urine Creatinine 200.0 mg/dl (39.0-259.0) 09/12/16 05:30 RPR NONREACTIVE (NONREACTIVE) 09/09/16 17:39 - Physical Exam Vitals and I&O: Vital Signs Temp 98 F 09/14/16 04:00 Pulse 85 09/14/16 08:05 Resp 20 09/14/16 08:05 BP 127/55 09/14/16 04:00 Pulse Ox 97 09/14/16 08:05 Intake & Output 09/13/16 09/14/16 09/14/16 18:59 06:59 18:59 Intake Total 500 350 Balance 500 350 Intake: Intake, IV Amount 50 cefTRIAXone 1 gm In 50 Dextrose 5% 50 ml @ 100 mls/hr IV Q24H [facility] Rx#: [id number] Oral 500 300 Other: # Voids 1 3 Active Medications: Current Medications Acetaminophen (Tylenol) 650 mg PO Q4HR PRN PRN Reason: Pain Stop: 11/08/16 20:54 Last Admin: 09/14/16 04:58 Dose: 650 mg Albuterol/Ipratropium (Duoneb Neb) 3 ml HHN Q4HRT [facility] Stop: 11/09/16 10:59 Last Admin: 09/14/16 07:47 Dose: 3 ml Ascorbic Acid (Vitamin C) 500 mg PO DAILY [facility] Stop: 11/09/16 08:59 Last Admin: 09/13/16 09:25 Dose: 500 mg Carvedilol (Coreg) 6.25 mg PO Q12H [facility] Stop: 11/08/16 20:59 Last Admin: 09/13/16 20:52 Dose: 6.25 mg Docusate Sodium (Colace) 100 mg PO DAILY [facility] Stop: 11/09/16 08:59 Last Admin: 09/13/16 09:29 Dose: 100 mg Furosemide (Lasix) 40 mg IVP BID [facility] Stop: 11/11/16 16:59 Last Admin: 09/13/16 17:31 Dose: 40 mg Ceftriaxone Sodium 1 gm/ (Dextrose) 50 mls @ 100 mls/hr IV Q24H [facility] Stop: 11/09/16 20:59 Last Infusion: 09/13/16 21:15 Dose: Infused Sodium Chloride (Nacl 0.9%) 1,000 mls @ 10 mls/hr IV .Q24H [facility] Stop: 11/08/16 20:59 Last Admin: 09/12/16 15:00 Dose: 10 mls/hr Lactobacillus Rhamnosus (Culturelle) 1 each PO DAILY [facility] Stop: 11/10/16 08:59 Last Admin: 09/13/16 09:29 Dose: 1 each Lactulose (Cephulac) 30 gm PO DAILY [facility] Stop: 11/12/16 13:44 Last Admin: 09/13/16 14:39 Dose: 30 gm Magnesium Hydroxide (Milk Of Magnesia) 30 ml PO DAILY PRN PRN Reason: Constipation Stop: 11/08/16 20:54 Last Admin: 09/12/16 11:30 Dose: 30 ml Miscellaneous (Probiotic Screen) 1 ea PRN PRN PRN Reason: PROTOCOL Stop: 11/09/16 11:19 Miscellaneous (Vte Chemical Prophylaxis Screen/ Admission) 1 ea PRN PRN PRN Reason: PROTOCOL Stop: 11/09/16 17:18 Miscellaneous (Clinical Monitoring) 1 ea PRN PRN PRN Reason: RENAL DOSING Stop: 11/12/16 12:53 Promethazine HCl/Dextromethorphan (Phenergan Dm 6.25/15mg-5 Ml) 5 ml PO Q4H PRN PRN Reason: Cough Stop: 11/09/16 07:02 Last Admin: 09/11/16 08:41 Dose: 5 ml Quetiapine Fumarate (Seroquel) 25 mg PO HS [facility] PRN Reason: Protocol Stop: 11/09/16 20:59 Last Admin: 09/13/16 20:52 Dose: 25 mg Sodium Bicarbonate (Sodium Bicarbonate) 650 mg PO BID [facility] PRN Reason: Protocol Stop: 11/12/16 16:59 Last Admin: 09/13/16 17:31 Dose: 650 mg Tamsulosin HCl (Flomax) 0.4 mg PO HS [facility] Stop: 11/08/16 20:59 Last Admin: 09/13/16 20:52 Dose: 0.4 mg General: Alert, Other (Confused) HEENT: Atraumatic Neck: Supple Cardiovascular: Regular rate Lungs: Other (Bilateral whezzing and abundant secretions.) Abdomen: Bowel sounds, Soft Extremities: Other (No edema) Neurological: Other (Non ambulatory) Skin: Other (Warm and dry) Psych/Mental Status: Other (Confused) - Procedures Procedures: Procedures Procedure Code Date [facility] 50583 07/07/15 GROUP PSYCHOTHERAPY GZHZZZZ 07/07/15 OTHER GROUP THERAPY 94.44 10/17/13 Assessment/Plan - Problem List Patient Problems: All Active Problems Diabetes mellitus (Active) E11.9 Congestive heart failure (Acute) I50.9 Dementia with behavioral disturbance (Acute) F03.91 Hypothyroidism (Acute) E03.9 Mental health disorder (Acute) F99 Psychosis (Acute) F29 SEXUALLY INAPPROPRIATE BEHAVIOR (Acute) - Assessment Assessment: Patient is confused. Labs not ready yet. patient more awake today. Family decide to wait for Delio catheter placement. - Plan Plan: Platelets are order. Awaiting family consent to place Delio catheter.
[2016-09-14 09:04] LABS: HEMATOCRIT 42.6 % (39.0-49.0); HEMOGLOBIN 14.1 gm/dL (12.6-17.4); MEAN CORPUSCULAR HEMOGLOBIN 26.5 pg (27.0-31.0); MEAN CORPUSCULAR HGB CONC 33.1 pg (28.0-36.0); MEAN PLATELET VOLUME 10.7 fl; PLATELET COUNT 91 Th/cmm (150-400); RED BLOOD COUNT 5.33 Mil/cmm (3.80-5.80); RED CELL DISTRIBUTION WIDTH 17.2 % (11.5-20.0); WHITE BLOOD COUNT 10.6 Th/cmm (4.8-10.8)
[2016-09-14] MEDS: Lactulose 10 Gm/15 mL 30mL UDC PO SCH (09:49)
[2016-09-14] MEDS: Lactobacillus Rhamnosus 10 Billion CFU Capsule PO SCH (09:50)
[2016-09-14] MEDS: Multivitamin w/ Minerals Tab PO SCH ×2 (09:50→10:22)
[2016-09-14 10:36] LABS: BAND NEUTROPHILE 2 % (0-10); EOSINOPHIL 2 % (0-5); NEUTROPHILS 78 % (40-80); TOTAL CELLS COUNTED 100
[2016-09-14 10:37] LABS: PLATELET ESTIMATE DECREASED PLATELETS (NORMAL); PLATELET MORPHOLOGY NORMAL (NORMAL)
--- NOTE | 2016-09-14 11:30 | General Progress Note ---
Subjective - Review of Systems Service Date: 09/14/16 Subjective: stuporous, less agitated, ate 30% of bkfast Objective - Results Result Diagrams: 09/14/16 08:00 09/14/16 08:00 Recent Labs: Laboratory Last Values WBC 10.6 Th/cmm (4.8-10.8) 09/14/16 08:00 RBC 5.33 Mil/cmm (3.80-5.80) 09/14/16 08:00 Hgb 14.1 gm/dL (12.6-17.4) 09/14/16 08:00 Hct 42.6 % (39.0-49.0) 09/14/16 08:00 MCV 80.0 fl (80-99) 09/14/16 08:00 MCH 26.5 pg (27.0-31.0) L 09/14/16 08:00 MCHC Differential 33.1 pg (28.0-36.0) 09/14/16 08:00 RDW 17.2 % (11.5-20.0) 09/14/16 08:00 Plt Count 91 Th/cmm (150-400) L 09/14/16 08:00 MPV 10.7 fl 09/14/16 08:00 Neutrophils % 77.5 % (40.0-80.0) 09/13/16 04:45 Band Neutrophils % 2 % (0-10) 09/14/16 08:00 Lymphocytes % 11.2 % (20.0-50.0) L 09/13/16 04:45 Monocytes % 9.5 % (2.0-10.0) 09/13/16 04:45 Eosinophils % 1.3 % (0.0-5.0) 09/13/16 04:45 Basophils % 0.5 % (0.0-2.0) 09/13/16 04:45 Neutrophils (Manual) 78 % (40-80) 09/14/16 08:00 Lymphocytes 12 % (20-50) L 09/14/16 08:00 Monocytes 6 % (2-10) 09/14/16 08:00 Eosinophils 2 % (0-5) 09/14/16 08:00 Platelet Estimate DECREASED PLATELETS (NORMAL) 09/14/16 08:00 Platelet Morphology NORMAL (NORMAL) 09/14/16 08:00 Polychromasia 1+ 09/10/16 05:17 Anisocytosis 1+ 09/09/16 17:39 RBC Morph Micro Appear NORMAL (NORMAL) 09/14/16 08:00 Eos Smear Source URINE 09/12/16 05:30 Eos Smear Total Cells NONE SEEN (NONE SEEN) 09/12/16 05:30 PT 19.8 SECONDS (9.5-11.5) H 09/14/16 08:00 INR 1.92 (0.5-1.4) H 09/14/16 08:00 Sodium 132 mEq/L (136-145) L 09/14/16 08:00 Potassium 4.7 mEq/L (3.5-5.1) 09/14/16 08:00 Chloride 105 mEq/L (98-107) 09/14/16 08:00 Carbon Dioxide 19.3 mEq/L (21.0-31.0) L 09/14/16 08:00 Anion Gap 12.4 (7.0-16.0) 09/14/16 08:00 BUN 105 mg/dL (7-25) H* 09/14/16 08:00 Creatinine 3.4 mg/dL (0.7-1.3) H 09/14/16 08:00 Est GFR ( Amer) TNP 09/14/16 08:00 Est GFR (Non-Af Amer) TNP 09/14/16 08:00 BUN/Creatinine Ratio 30.9 09/14/16 08:00 Glucose 95 mg/dL (70-105) 09/14/16 08:00 Calcium 7.9 mg/dL (8.6-10.3) L 09/14/16 08:00 Phosphorus 4.5 mg/dL (2.5-5.0) 09/11/16 05:01 Magnesium 2.8 mg/dL (1.9-2.7) H 09/11/16 05:01 Total Bilirubin 2.8 mg/dL (0.3-1.0) H 09/14/16 08:00 AST 67 U/L (13-39) H 09/14/16 08:00 ALT 111 U/L (7-52) H 09/14/16 08:00 Alkaline Phosphatase 103 U/L (34-104) 09/14/16 08:00 Ammonia 74 umol/L (16-53) H 09/14/16 08:00 Troponin I 0.06 ng/mL (0.01-0.05) H D 09/11/16 09:15 B-Natriuretic Peptide 3230.0 pg/mL (5.0-100.0) H 09/11/16 05:01 Total Protein 5.2 gm/dL (6.0-8.3) L 09/14/16 08:00 Albumin 1.9 gm/dL (4.2-5.5) L 09/14/16 08:00 Globulin 3.3 gm/dL 09/14/16 08:00 Albumin/Globulin Ratio 0.6 (1.0-1.8) L 09/14/16 08:00 TSH 0.97 uIU/ml (0.34-5.60) 09/09/16 17:39 Urine Source MIDSTREAM 09/12/16 05:30 Urine Color ALEC 09/12/16 05:30 Urine Clarity CLEAR (CLEAR) 09/12/16 05:30 Urine pH 5.0 09/12/16 05:30 Ur Specific [place] 1.030 (1.005-1.030) 09/12/16 05:30 Urine Protein >300 mg/dL (NEGATIVE) H 09/12/16 05:30 Urine Glucose (UA) NEGATIVE mg/dL (NEGATIVE) 09/12/16 05:30 Urine Ketones NEGATIVE mg/dL (NEGATIVE) 09/12/16 05:30 Urine Blood TRACE (NEGATIVE) 09/12/16 05:30 Urine Nitrate NEGATIVE (NEGATIVE) 09/12/16 05:30 Urine Bilirubin SMALL (NEGATIVE) H 09/12/16 05:30 Urine Urobilinogen 1.0 E.U./dL (0.2 - 1.0) 09/12/16 05:30 Ur Leukocyte Esterase NEGATIVE (NEGATIVE) 09/12/16 05:30 Urine RBC 0-2 /hpf (0-5) H 09/12/16 05:30 Urine WBC 0-2 /hpf (0-5) 09/12/16 05:30 Ur Epithelial Cells FEW /lpf (FEW) 09/12/16 05:30 Urine Bacteria FEW /hpf (NONE SEEN) 09/12/16 05:30 Hyaline Casts 0-2 /lpf (0-2) H 09/12/16 05:30 Ur Random Sodium 10 mmol/L 09/12/16 05:30 Urine Creatinine 200.0 mg/dl (39.0-259.0) 09/12/16 05:30 RPR NONREACTIVE (NONREACTIVE) 09/09/16 17:39 Blood Type A POSITIVE 09/14/16 09:15 - Physical Exam Vitals and I&O: Vital Signs Temp 96.6 F 09/14/16 08:00 Pulse 88 09/14/16 09:51 Resp 20 09/14/16 08:05 BP 113/72 09/14/16 09:51 Pulse Ox 97 09/14/16 08:05 Intake & Output 09/13/16 09/14/16 09/14/16 18:59 06:59 18:59 Intake Total 500 350 Balance 500 350 Intake: Intake, IV Amount 50 cefTRIAXone 1 gm In 50 Dextrose 5% 50 ml @ 100 mls/hr IV Q24H [facility] Rx#: [id number] Oral 500 300 Other: # Voids 1 3 Active Medications: Current Medications Acetaminophen (Tylenol) 650 mg PO Q4HR PRN PRN Reason: Pain Stop: 11/08/16 20:54 Last Admin: 09/14/16 04:58 Dose: 650 mg Albuterol/Ipratropium (Duoneb Neb) 3 ml HHN Q4HRT GOOD Stop: 11/09/16 10:59 Last Admin: 09/14/16 07:47 Dose: 3 ml Ascorbic Acid (Vitamin C) 500 mg PO DAILY GOOD Stop: 11/09/16 08:59 Last Admin: 09/14/16 10:21 Dose: Not Given Carvedilol (Coreg) 6.25 mg PO Q12H GOOD Stop: 11/08/16 20:59 Last Admin: 09/14/16 09:51 Dose: Not Given Docusate Sodium (Colace) 100 mg PO DAILY GOOD Stop: 11/09/16 08:59 Last Admin: 09/14/16 10:21 Dose: Not Given Furosemide (Lasix) 40 mg IVP BID GOOD Stop: 11/11/16 16:59 Last Admin: 09/14/16 09:49 Dose: 40 mg Ceftriaxone Sodium 1 gm/ (Dextrose) 50 mls @ 100 mls/hr IV Q24H GOOD Stop: 11/09/16 20:59 Last Infusion: 09/13/16 21:15 Dose: Infused Sodium Chloride (Nacl 0.9%) 1,000 mls @ 10 mls/hr IV .Q24H GOOD Stop: 11/08/16 20:59 Last Admin: 09/12/16 15:00 Dose: 10 mls/hr Lactobacillus Rhamnosus (Culturelle) 1 each PO DAILY GOOD Stop: 11/10/16 08:59 Last Admin: 09/14/16 09:50 Dose: 1 each Lactulose (Cephulac) 30 gm PO DAILY GOOD Stop: 11/12/16 13:44 Last Admin: 09/14/16 09:49 Dose: 30 gm Magnesium Hydroxide (Milk Of Magnesia) 30 ml PO DAILY PRN PRN Reason: Constipation Stop: 11/08/16 20:54 Last Admin: 09/12/16 11:30 Dose: 30 ml Miscellaneous (Probiotic Screen) 1 [facility] PRN PRN PRN Reason: PROTOCOL Stop: 11/09/16 11:19 Miscellaneous (Vte Chemical Prophylaxis Screen/ Admission) 1 [facility] PRN PRN PRN Reason: PROTOCOL Stop: 11/09/16 17:18 Miscellaneous (Clinical Monitoring) 1 [facility] PRN PRN PRN Reason: RENAL DOSING Stop: 11/12/16 12:53 Promethazine HCl/Dextromethorphan (Phenergan Dm 6.25/15mg-5 Ml) 5 ml PO Q4H PRN PRN Reason: Cough Stop: 11/09/16 07:02 Last Admin: 09/11/16 08:41 Dose: 5 ml Quetiapine Fumarate (Seroquel) 25 mg PO HS GOOD PRN Reason: Protocol Stop: 11/09/16 20:59 Last Admin: 09/13/16 20:52 Dose: 25 mg Sodium Bicarbonate (Sodium Bicarbonate) 650 mg PO BID GOOD PRN Reason: Protocol Stop: 11/12/16 16:59 Last Admin: 09/14/16 09:50 Dose: 650 mg Tamsulosin HCl (Flomax) 0.4 mg PO HS GOOD Stop: 11/08/16 20:59 Last Admin: 09/13/16 20:52 Dose: 0.4 mg General: Mild distress, Other (stuporous) HEENT: Atraumatic, Mucous membr. moist/pink Neck: Supple, +2 carotid pulse wo bruit Cardiovascular: Regular rate, Normal S1, Normal S2 Lungs: Other (rhonchi) Abdomen: Bowel sounds, Soft Extremities: Edema ((+) 3 bipedal edema) Neurological: Sensation intact Skin: no Rash - Procedures Procedures: Procedures Procedure Code Date GROUP PSYCHOTHERAPY 16062 07/07/15 GROUP PSYCHOTHERAPY GZHZZZZ 07/07/15 OTHER GROUP THERAPY 94.44 10/17/13 Assessment/Plan - Problem List Patient Problems: All Active Problems Diabetes mellitus (Active) E11.9 Congestive heart failure (Acute) I50.9 Dementia with behavioral disturbance (Acute) F03.91 Hypothyroidism (Acute) E03.9 Mental health disorder (Acute) F99 Psychosis (Acute) F29 SEXUALLY INAPPROPRIATE BEHAVIOR (Acute) - Assessment Assessment: belia on ckd right lower lobe HAP hyperkalemia elevated BNP 2nd to ckd anemia of ckd BPH alhz dementia w/ behavioral disturbance HTN DJD peripheral edema elevated liver enzymes possibly fatty liver acute bronchospasm GB calculi, distended GB but no dilatation - Plan Plan: decrease ivf due to persistent lower ext edema continue breathing Tx cr. up to 3.4, elevated BNP likely due to ckd K has corrected f/u electrolytes cxr still w/ right lower lobe infiltrate, continue abx admisister 1 dose of lasix kidneys not responding well to diuretics, will need dialysis family deciding about dialysis
--- NOTE | 2016-09-14 14:27 | Operative Report ---
PREOPERATIVE DIAGNOSIS: 1. Acute renal failure on chronic kidney disease. 2. Hypertension. 3. Dementia. 4. Congestive heart failure. POSTOPERATIVE DIAGNOSES: 1. Acute renal failure on chronic kidney disease. 2. Hypertension. 3. Dementia. 4. Congestive heart failure. OPERATION DONE Insertion of Delio catheter, left subclavian vein under ultrasound guidance. Informed consent discussed with the son prior to the procedure including possible complications in the presence of low platelet count. His gave the consent for the procedure. DESCRIPTION OF PROCEDURE: The left chest was prepped with ChloraPrep and draped in appropriate manner. Then, 1% lidocaine was used to infiltrate the infraclavicular portion at the site of ultrasound location of the vessel. An incision was made and size 18 needle was used to locate the vein. The guidewire was inserted, the dilator and then the triple lumen catheter. It was anchored to chest wall with 3-0 silk. Portable chest x-ray will be done. JOB# [id number]
--- NOTE | 2016-09-14 15:02 | Diagnostic Imaging Report ---
Portable chest x-ray HISTORY: Shortness of breath, vascular catheter placement Compared with prior exam of 09/23/2016, a left-sided vascular catheter is been inserted. The tip extends just into the region of the superior vena cava at the junction with the left brachiocephalic vein. The heart is enlarged. There is a poor inspiration. Accentuation of interstitial markings in the lower lobes particularly on the right. This may be related to the poor inspiration. Faint infiltrate cannot be excluded. Question small right pleural effusion. IMPRESSION: 1. New vascular catheter with tip just into the region of the superior vena cava near the junction with the left brachiocephalic vein 2. Questionable infiltrate right lower lobe. This may be related to poor inspiration. 3. Questionable small right pleural effusion 4. Persistent cardiomegaly
[2016-09-15] MEDS: Albuterol/Ipratropium Neb 3 ML AERS HHN SCH ×6 (03:14→23:10)
[2016-09-15 05:36] LABS: % BASOPHILS 0.4 % (0.0-2.0); % EOSINOPHILS 3.2 % (0.0-5.0); % LYMPHOCYTES 10.3 % (20.0-50.0); % MONOCYTES 10.8 % (2.0-10.0); % NEUTROPHILS 75.3 % (40.0-80.0); HEMATOCRIT 41.7 % (39.0-49.0); HEMOGLOBIN 13.5 gm/dL (12.6-17.4); MEAN CELL VOLUME 80.8 fl (80-99); MEAN CORPUSCULAR HEMOGLOBIN 26.1 pg (27.0-31.0); MEAN CORPUSCULAR HGB CONC 32.3 pg (28.0-36.0); PLATELET COUNT 92 Th/cmm (150-400); RED BLOOD COUNT 5.16 Mil/cmm (3.80-5.80); RED CELL DISTRIBUTION WIDTH 17.4 % (11.5-20.0); WHITE BLOOD COUNT 9.2 Th/cmm (4.8-10.8)
[2016-09-15 06:00] LABS: ALB/GLOB RATIO 0.6 (1.0-1.8); ALKALINE PHOSPHATASE 114 U/L (34-104); ANION GAP 13.2 (7.0-16.0); BILIRUBIN,TOTAL 2.8 mg/dL (0.3-1.0); BUN - UREA NITROGEN 74 mg/dL (7-25); BUN/CREATININE RATIO 26.4; CALCIUM SERUM 7.5 mg/dL (8.6-10.3); CARBON DIOXIDE 22.1 mEq/L (21.0-31.0); CHLORIDE 103 mEq/L (98-107); CREATININE - SERUM 2.8 mg/dL (0.7-1.3); GLUCOSE 87 mg/dL (70-105); POTASSIUM SERUM 4.3 mEq/L (3.5-5.1); SGOT 75 U/L (13-39); SGPT/ALT 100 U/L (7-52); SODIUM SERUM 134 mEq/L (136-145)
[2016-09-15] MEDS: Multivitamin w/ Minerals Tab PO SCH (09:07)
[2016-09-15] MEDS: Lactulose 10 Gm/15 mL 30mL UDC PO SCH (09:08)
--- NOTE | 2016-09-15 09:21 | General Progress Note ---
Subjective - Review of Systems Service Date: 09/15/16 Subjective: I want go home Objective - Results Result Diagrams: 09/15/16 04:55 09/15/16 04:55 Recent Labs: Laboratory Last Values WBC 9.2 Th/cmm (4.8-10.8) 09/15/16 04:55 RBC 5.16 Mil/cmm (3.80-5.80) 09/15/16 04:55 Hgb 13.5 gm/dL (12.6-17.4) 09/15/16 04:55 Hct 41.7 % (39.0-49.0) 09/15/16 04:55 MCV 80.8 fl (80-99) 09/15/16 04:55 MCH 26.1 pg (27.0-31.0) L 09/15/16 04:55 MCHC Differential 32.3 pg (28.0-36.0) 09/15/16 04:55 RDW 17.4 % (11.5-20.0) 09/15/16 04:55 Plt Count 92 Th/cmm (150-400) L 09/15/16 04:55 MPV 11.0 fl 09/15/16 04:55 Neutrophils % 75.3 % (40.0-80.0) 09/15/16 04:55 Band Neutrophils % 2 % (0-10) 09/14/16 08:00 Lymphocytes % 10.3 % (20.0-50.0) L 09/15/16 04:55 Monocytes % 10.8 % (2.0-10.0) H 09/15/16 04:55 Eosinophils % 3.2 % (0.0-5.0) 09/15/16 04:55 Basophils % 0.4 % (0.0-2.0) 09/15/16 04:55 Neutrophils (Manual) 78 % (40-80) 09/14/16 08:00 Lymphocytes 12 % (20-50) L 09/14/16 08:00 Monocytes 6 % (2-10) 09/14/16 08:00 Eosinophils 2 % (0-5) 09/14/16 08:00 Platelet Estimate DECREASED PLATELETS (NORMAL) 09/14/16 08:00 Platelet Morphology NORMAL (NORMAL) 09/14/16 08:00 Polychromasia 1+ 09/10/16 05:17 Anisocytosis 1+ 09/09/16 17:39 RBC Morph Micro Appear NORMAL (NORMAL) 09/14/16 08:00 Eos Smear Source URINE 09/12/16 05:30 Eos Smear Total Cells NONE SEEN (NONE SEEN) 09/12/16 05:30 PT 19.8 SECONDS (9.5-11.5) H 09/14/16 08:00 INR 1.92 (0.5-1.4) H 09/14/16 08:00 Sodium 134 mEq/L (136-145) L 09/15/16 04:55 Potassium 4.3 mEq/L (3.5-5.1) 09/15/16 04:55 Chloride 103 mEq/L (98-107) 09/15/16 04:55 Carbon Dioxide 22.1 mEq/L (21.0-31.0) 09/15/16 04:55 Anion Gap 13.2 (7.0-16.0) 09/15/16 04:55 BUN 74 mg/dL (7-25) H 09/15/16 04:55 Creatinine 2.8 mg/dL (0.7-1.3) H 09/15/16 04:55 Est GFR ( Amer) TNP 09/15/16 04:55 Est GFR (Non-Af Amer) TNP 09/15/16 04:55 BUN/Creatinine Ratio 26.4 09/15/16 04:55 Glucose 87 mg/dL (70-105) 09/15/16 04:55 Calcium 7.5 mg/dL (8.6-10.3) L 09/15/16 04:55 Phosphorus 4.5 mg/dL (2.5-5.0) 09/11/16 05:01 Magnesium 2.8 mg/dL (1.9-2.7) H 09/11/16 05:01 Total Bilirubin 2.8 mg/dL (0.3-1.0) H 09/15/16 04:55 AST 75 U/L (13-39) H 09/15/16 04:55 ALT 100 U/L (7-52) H 09/15/16 04:55 Alkaline Phosphatase 114 U/L (34-104) H 09/15/16 04:55 Ammonia 74 umol/L (16-53) H 09/14/16 08:00 Troponin I 0.06 ng/mL (0.01-0.05) H D 09/11/16 09:15 B-Natriuretic Peptide 3230.0 pg/mL (5.0-100.0) H 09/11/16 05:01 Total Protein 5.6 gm/dL (6.0-8.3) L 09/15/16 04:55 Albumin 2.1 gm/dL (4.2-5.5) L 09/15/16 04:55 Globulin 3.5 gm/dL 09/15/16 04:55 Albumin/Globulin Ratio 0.6 (1.0-1.8) L 09/15/16 04:55 TSH 0.97 uIU/ml (0.34-5.60) 09/09/16 17:39 Urine Source MIDSTREAM 09/12/16 05:30 Urine Color ALEC 09/12/16 05:30 Urine Clarity CLEAR (CLEAR) 09/12/16 05:30 Urine pH 5.0 09/12/16 05:30 Ur Specific [place] 1.030 (1.005-1.030) 09/12/16 05:30 Urine Protein >300 mg/dL (NEGATIVE) H 09/12/16 05:30 Urine Glucose (UA) NEGATIVE mg/dL (NEGATIVE) 09/12/16 05:30 Urine Ketones NEGATIVE mg/dL (NEGATIVE) 09/12/16 05:30 Urine Blood TRACE (NEGATIVE) 09/12/16 05:30 Urine Nitrate NEGATIVE (NEGATIVE) 09/12/16 05:30 Urine Bilirubin SMALL (NEGATIVE) H 09/12/16 05:30 Urine Urobilinogen 1.0 E.U./dL (0.2 - 1.0) 09/12/16 05:30 Ur Leukocyte Esterase NEGATIVE (NEGATIVE) 09/12/16 05:30 Urine RBC 0-2 /hpf (0-5) H 09/12/16 05:30 Urine WBC 0-2 /hpf (0-5) 09/12/16 05:30 Ur Epithelial Cells FEW /lpf (FEW) 09/12/16 05:30 Urine Bacteria FEW /hpf (NONE SEEN) 09/12/16 05:30 Hyaline Casts 0-2 /lpf (0-2) H 09/12/16 05:30 Ur Random Sodium 10 mmol/L 09/12/16 05:30 Urine Creatinine 200.0 mg/dl (39.0-259.0) 09/12/16 05:30 RPR NONREACTIVE (NONREACTIVE) 09/09/16 17:39 Blood Type A POSITIVE 09/14/16 09:15 - Physical Exam Vitals and I&O: Vital Signs Temp 98.2 F 09/15/16 04:00 Pulse 87 09/15/16 07:19 Resp 20 09/15/16 07:19 BP 135/66 09/15/16 04:00 Pulse Ox 94 09/15/16 07:19 Intake & Output 09/14/16 09/15/16 09/15/16 18:59 06:59 18:59 Intake Total 720 100 Balance 720 100 Intake: Oral 720 100 Other: # Voids 2 3 Active Medications: Current Medications Acetaminophen (Tylenol) 650 mg PO Q4HR PRN PRN Reason: Pain Stop: 11/08/16 20:54 Last Admin: 09/14/16 20:42 Dose: 650 mg Albuterol/Ipratropium (Duoneb Neb) 3 ml HHN Q4HRT GOOD Stop: 11/09/16 10:59 Last Admin: 09/15/16 07:19 Dose: 3 ml Ascorbic Acid (Vitamin C) 500 mg PO DAILY GOOD Stop: 11/09/16 08:59 Last Admin: 09/14/16 10:21 Dose: Not Given Carvedilol (Coreg) 6.25 mg PO Q12H GOOD Stop: 11/08/16 20:59 Last Admin: 09/14/16 20:42 Dose: 6.25 mg Docusate Sodium (Colace) 100 mg PO DAILY GOOD Stop: 11/09/16 08:59 Last Admin: 09/14/16 10:21 Dose: Not Given Furosemide (Lasix) 40 mg IVP BID GOOD Stop: 11/11/16 16:59 Last Admin: 09/14/16 18:01 Dose: Not Given Ceftriaxone Sodium 1 gm/ (Dextrose) 50 mls @ 100 mls/hr IV Q24H GOOD Stop: 11/09/16 20:59 Last Admin: 09/15/16 03:17 Dose: 100 mls/hr Sodium Chloride (Nacl 0.9%) 1,000 mls @ 10 mls/hr IV .Q24H GOOD Stop: 11/08/16 20:59 Last Admin: 09/12/16 15:00 Dose: 10 mls/hr Lactobacillus Rhamnosus (Culturelle) 1 each PO DAILY GOOD Stop: 11/10/16 08:59 Last Admin: 09/14/16 09:50 Dose: 1 each Lactulose (Cephulac) 30 gm PO DAILY GOOD Stop: 11/12/16 13:44 Last Admin: 09/14/16 09:49 Dose: 30 gm Magnesium Hydroxide (Milk Of Magnesia) 30 ml PO DAILY PRN PRN Reason: Constipation Stop: 11/08/16 20:54 Last Admin: 09/12/16 11:30 Dose: 30 ml Miscellaneous (Probiotic Screen) 1 ea PRN PRN PRN Reason: PROTOCOL Stop: 11/09/16 11:19 Miscellaneous (Vte Chemical Prophylaxis Screen/ Admission) 1 ea PRN PRN PRN Reason: PROTOCOL Stop: 11/09/16 17:18 Miscellaneous (Clinical Monitoring) 1 ea PRN PRN PRN Reason: RENAL DOSING Stop: 11/12/16 12:53 Promethazine HCl/Dextromethorphan (Phenergan Dm 6.25/15mg-5 Ml) 5 ml PO Q4H PRN PRN Reason: Cough Stop: 11/09/16 07:02 Last Admin: 09/11/16 08:41 Dose: 5 ml Quetiapine Fumarate (Seroquel) 25 mg PO HS GOOD PRN Reason: Protocol Stop: 11/09/16 20:59 Last Admin: 09/14/16 20:43 Dose: 25 mg Sodium Bicarbonate (Sodium Bicarbonate) 650 mg PO BID GOOD PRN Reason: Protocol Stop: 11/12/16 16:59 Last Admin: 09/14/16 18:01 Dose: 650 mg Tamsulosin HCl (Flomax) 0.4 mg PO HS GOOD Stop: 11/08/16 20:59 Last Admin: 09/14/16 20:43 Dose: 0.4 mg General: Alert, Other (Confused) HEENT: Atraumatic Neck: Supple Cardiovascular: Regular rate Lungs: Other (Rude respiration, with abundant secretions) Abdomen: Bowel sounds, Soft Extremities: Other (Edema of all extremities) Neurological: Other (Non ambulatory) Skin: Other (Warm and dry) Psych/Mental Status: Other (Confused) - Procedures Procedures: Procedures Procedure Code Date GROUP PSYCHOTHERAPY 38689 07/07/15 GROUP PSYCHOTHERAPY GZHZZZZ 07/07/15 INSERT TUNNELED CV CATH [id number] 09/09/16 INSERTION OF INFUSION DEV INTO L SUBCLAV VEIN, PERC APPROACH [id number] 09/09/16 OTHER GROUP THERAPY 94.44 10/17/13 ULTRASONOGRAPHY OF LEFT SUBCLAVIAN VEIN, GUIDANCE [id number] 09/09/16 Assessment/Plan - Problem List Patient Problems: All Active Problems Diabetes mellitus (Active) E11.9 Congestive heart failure (Acute) I50.9 Dementia with behavioral disturbance (Acute) F03.91 Hypothyroidism (Acute) E03.9 Mental health disorder (Acute) F99 Psychosis (Acute) F29 SEXUALLY INAPPROPRIATE BEHAVIOR (Acute) - Assessment Assessment: Patient is confused. Labs improving. patient has been agitated. - Plan Plan: HD done yesterday. Will continue to monitoring
[2016-09-15] MEDS: Lactobacillus Rhamnosus 10 Billion CFU Capsule PO SCH (09:23)
--- NOTE | 2016-09-15 13:52 | General Progress Note ---
Subjective - Review of Systems Service Date: 09/15/16 Subjective: stuporous, less agitated Objective - Results Result Diagrams: 09/15/16 04:55 09/15/16 04:55 Recent Labs: Laboratory Last Values WBC 9.2 Th/cmm (4.8-10.8) 09/15/16 04:55 RBC 5.16 Mil/cmm (3.80-5.80) 09/15/16 04:55 Hgb 13.5 gm/dL (12.6-17.4) 09/15/16 04:55 Hct 41.7 % (39.0-49.0) 09/15/16 04:55 MCV 80.8 fl (80-99) 09/15/16 04:55 MCH 26.1 pg (27.0-31.0) L 09/15/16 04:55 MCHC Differential 32.3 pg (28.0-36.0) 09/15/16 04:55 RDW 17.4 % (11.5-20.0) 09/15/16 04:55 Plt Count 92 Th/cmm (150-400) L 09/15/16 04:55 MPV 11.0 fl 09/15/16 04:55 Neutrophils % 75.3 % (40.0-80.0) 09/15/16 04:55 Band Neutrophils % 2 % (0-10) 09/14/16 08:00 Lymphocytes % 10.3 % (20.0-50.0) L 09/15/16 04:55 Monocytes % 10.8 % (2.0-10.0) H 09/15/16 04:55 Eosinophils % 3.2 % (0.0-5.0) 09/15/16 04:55 Basophils % 0.4 % (0.0-2.0) 09/15/16 04:55 Neutrophils (Manual) 78 % (40-80) 09/14/16 08:00 Lymphocytes 12 % (20-50) L 09/14/16 08:00 Monocytes 6 % (2-10) 09/14/16 08:00 Eosinophils 2 % (0-5) 09/14/16 08:00 Platelet Estimate DECREASED PLATELETS (NORMAL) 09/14/16 08:00 Platelet Morphology NORMAL (NORMAL) 09/14/16 08:00 Polychromasia 1+ 09/10/16 05:17 Anisocytosis 1+ 09/09/16 17:39 RBC Morph Micro Appear NORMAL (NORMAL) 09/14/16 08:00 Eos Smear Source URINE 09/12/16 05:30 Eos Smear Total Cells NONE SEEN (NONE SEEN) 09/12/16 05:30 PT 19.8 SECONDS (9.5-11.5) H 09/14/16 08:00 INR 1.92 (0.5-1.4) H 09/14/16 08:00 Sodium 134 mEq/L (136-145) L 09/15/16 04:55 Potassium 4.3 mEq/L (3.5-5.1) 09/15/16 04:55 Chloride 103 mEq/L (98-107) 09/15/16 04:55 Carbon Dioxide 22.1 mEq/L (21.0-31.0) 09/15/16 04:55 Anion Gap 13.2 (7.0-16.0) 09/15/16 04:55 BUN 74 mg/dL (7-25) H 09/15/16 04:55 Creatinine 2.8 mg/dL (0.7-1.3) H 09/15/16 04:55 Est GFR ( Amer) TNP 09/15/16 04:55 Est GFR (Non-Af Amer) TNP 09/15/16 04:55 BUN/Creatinine Ratio 26.4 09/15/16 04:55 Glucose 87 mg/dL (70-105) 09/15/16 04:55 Calcium 7.5 mg/dL (8.6-10.3) L 09/15/16 04:55 Phosphorus 4.5 mg/dL (2.5-5.0) 09/11/16 05:01 Magnesium 2.8 mg/dL (1.9-2.7) H 09/11/16 05:01 Total Bilirubin 2.8 mg/dL (0.3-1.0) H 09/15/16 04:55 AST 75 U/L (13-39) H 09/15/16 04:55 ALT 100 U/L (7-52) H 09/15/16 04:55 Alkaline Phosphatase 114 U/L (34-104) H 09/15/16 04:55 Ammonia 74 umol/L (16-53) H 09/14/16 08:00 Troponin I 0.06 ng/mL (0.01-0.05) H D 09/11/16 09:15 B-Natriuretic Peptide 3230.0 pg/mL (5.0-100.0) H 09/11/16 05:01 Total Protein 5.6 gm/dL (6.0-8.3) L 09/15/16 04:55 Albumin 2.1 gm/dL (4.2-5.5) L 09/15/16 04:55 Globulin 3.5 gm/dL 09/15/16 04:55 Albumin/Globulin Ratio 0.6 (1.0-1.8) L 09/15/16 04:55 TSH 0.97 uIU/ml (0.34-5.60) 09/09/16 17:39 Urine Source MIDSTREAM 09/12/16 05:30 Urine Color ALEC 09/12/16 05:30 Urine Clarity CLEAR (CLEAR) 09/12/16 05:30 Urine pH 5.0 09/12/16 05:30 Ur Specific [place] 1.030 (1.005-1.030) 09/12/16 05:30 Urine Protein >300 mg/dL (NEGATIVE) H 09/12/16 05:30 Urine Glucose (UA) NEGATIVE mg/dL (NEGATIVE) 09/12/16 05:30 Urine Ketones NEGATIVE mg/dL (NEGATIVE) 09/12/16 05:30 Urine Blood TRACE (NEGATIVE) 09/12/16 05:30 Urine Nitrate NEGATIVE (NEGATIVE) 09/12/16 05:30 Urine Bilirubin SMALL (NEGATIVE) H 09/12/16 05:30 Urine Urobilinogen 1.0 E.U./dL (0.2 - 1.0) 09/12/16 05:30 Ur Leukocyte Esterase NEGATIVE (NEGATIVE) 09/12/16 05:30 Urine RBC 0-2 /hpf (0-5) H 09/12/16 05:30 Urine WBC 0-2 /hpf (0-5) 09/12/16 05:30 Ur Epithelial Cells FEW /lpf (FEW) 09/12/16 05:30 Urine Bacteria FEW /hpf (NONE SEEN) 09/12/16 05:30 Hyaline Casts 0-2 /lpf (0-2) H 09/12/16 05:30 Ur Random Sodium 10 mmol/L 09/12/16 05:30 Urine Creatinine 200.0 mg/dl (39.0-259.0) 09/12/16 05:30 RPR NONREACTIVE (NONREACTIVE) 09/09/16 17:39 Blood Type A POSITIVE 09/14/16 09:15 - Physical Exam Vitals and I&O: Vital Signs Temp 98.9 F 09/15/16 12:00 Pulse 92 09/15/16 12:00 Resp 20 09/15/16 12:00 BP 121/70 09/15/16 12:00 Pulse Ox 95 09/15/16 12:00 Intake & Output 09/14/16 09/15/16 09/15/16 18:59 06:59 18:59 Intake Total 720 100 Balance 720 100 Intake: Oral 720 100 Other: # Voids 2 3 Active Medications: Current Medications Acetaminophen (Tylenol) 650 mg PO Q4HR PRN PRN Reason: Pain Stop: 11/08/16 20:54 Last Admin: 09/15/16 13:20 Dose: 650 mg Albuterol/Ipratropium (Duoneb Neb) 3 ml HHN Q4HRT GOOD Stop: 11/09/16 10:59 Last Admin: 09/15/16 11:19 Dose: Not Given Ascorbic Acid (Vitamin C) 500 mg PO DAILY GOOD Stop: 11/09/16 08:59 Last Admin: 09/15/16 09:07 Dose: 500 mg Carvedilol (Coreg) 6.25 mg PO Q12H GOOD Stop: 11/08/16 20:59 Last Admin: 09/15/16 09:07 Dose: 6.25 mg Docusate Sodium (Colace) 100 mg PO DAILY GOOD Stop: 11/09/16 08:59 Last Admin: 09/15/16 09:07 Dose: 100 mg Furosemide (Lasix) 40 mg IVP BID GOOD Stop: 11/11/16 16:59 Last Admin: 09/15/16 09:08 Dose: 40 mg Ceftriaxone Sodium 1 gm/ (Dextrose) 50 mls @ 100 mls/hr IV Q24H GOOD Stop: 11/09/16 20:59 Last Admin: 09/15/16 03:17 Dose: 100 mls/hr Sodium Chloride (Nacl 0.9%) 1,000 mls @ 10 mls/hr IV .Q24H GOOD Stop: 11/08/16 20:59 Last Admin: 09/12/16 15:00 Dose: 10 mls/hr Lactobacillus Rhamnosus (Culturelle) 1 each PO DAILY GOOD Stop: 11/10/16 08:59 Last Admin: 09/15/16 09:23 Dose: 1 each Lactulose (Cephulac) 30 gm PO DAILY GOOD Stop: 11/12/16 13:44 Last Admin: 09/15/16 09:08 Dose: Not Given Magnesium Hydroxide (Milk Of Magnesia) 30 ml PO DAILY PRN PRN Reason: Constipation Stop: 11/08/16 20:54 Last Admin: 09/12/16 11:30 Dose: 30 ml Miscellaneous (Probiotic Screen) 1 ea PRN PRN PRN Reason: PROTOCOL Stop: 11/09/16 11:19 Miscellaneous (Vte Chemical Prophylaxis Screen/ Admission) 1 ea PRN PRN PRN Reason: PROTOCOL Stop: 11/09/16 17:18 Miscellaneous (Clinical Monitoring) 1 ea PRN PRN PRN Reason: RENAL DOSING Stop: 11/12/16 12:53 Promethazine HCl/Dextromethorphan (Phenergan Dm 6.25/15mg-5 Ml) 5 ml PO Q4H PRN PRN Reason: Cough Stop: 11/09/16 07:02 Last Admin: 09/11/16 08:41 Dose: 5 ml Quetiapine Fumarate (Seroquel) 25 mg PO HS GOOD PRN Reason: Protocol Stop: 11/09/16 20:59 Last Admin: 09/14/16 20:43 Dose: 25 mg Sodium Bicarbonate (Sodium Bicarbonate) 650 mg PO BID GOOD PRN Reason: Protocol Stop: 11/12/16 16:59 Last Admin: 09/15/16 09:07 Dose: 650 mg Tamsulosin HCl (Flomax) 0.4 mg PO HS [facility] Stop: 11/08/16 20:59 Last Admin: 09/14/16 20:43 Dose: 0.4 mg General: No acute distress HEENT: Atraumatic, Mucous membr. moist/pink Neck: Supple, +2 carotid pulse wo bruit Cardiovascular: Regular rate, Normal S1, Normal S2 Lungs: Other (decrease BS) Abdomen: Bowel sounds, Soft, Other (globular) Extremities: Edema ((+) 3 bipedal edema, upper ext edema) - Procedures Procedures: Procedures Procedure Code Date GROUP PSYCHOTHERAPY 26863 07/07/15 GROUP PSYCHOTHERAPY GZHZZZZ 07/07/15 INSERT TUNNELED CV CATH 20825 09/09/16 INSERTION OF INFUSION DEV INTO L SUBCLAV VEIN, PERC APPROACH [id number] 09/09/16 OTHER GROUP THERAPY 94.44 10/17/13 ULTRASONOGRAPHY OF LEFT SUBCLAVIAN VEIN, GUIDANCE [id number] 09/09/16 Assessment/Plan - Problem List Patient Problems: All Active Problems Diabetes mellitus (Active) E11.9 Congestive heart failure (Acute) I50.9 Dementia with behavioral disturbance (Acute) F03.91 Hypothyroidism (Acute) E03.9 Mental health disorder (Acute) F99 Psychosis (Acute) F29 SEXUALLY INAPPROPRIATE BEHAVIOR (Acute) - Assessment Assessment: belia on ckd right lower lobe HAP hyperkalemia elevated BNP 2nd to ckd anemia of ckd BPH alhz dementia w/ behavioral disturbance HTN DJD peripheral edema elevated liver enzymes possibly fatty liver acute bronchospasm GB calculi, distended GB but no dilatation - Plan Plan: decrease ivf due to persistent lower ext edema continue breathing Tx elevated BNP likely due to ckd K has corrected f/u electrolytes cxr still w/ right lower lobe infiltrate, continue abx admisister 1 dose of lasix kidneys not responding well to diuretics, will need dialysis scheduled for hd today
[2016-09-16] MEDS: Albuterol/Ipratropium Neb 3 ML AERS HHN SCH ×6 (03:01→22:08)
[2016-09-16 05:26] LABS: % EOSINOPHILS 2.7 % (0.0-5.0); % LYMPHOCYTES 10.1 % (20.0-50.0); % MONOCYTES 12.1 % (2.0-10.0); % NEUTROPHILS 75.1 % (40.0-80.0); HEMATOCRIT 41.7 % (39.0-49.0); HEMOGLOBIN 13.7 gm/dL (12.6-17.4); MEAN CELL VOLUME 80.7 fl (80-99); MEAN CORPUSCULAR HEMOGLOBIN 26.4 pg (27.0-31.0); MEAN CORPUSCULAR HGB CONC 32.8 pg (28.0-36.0); MEAN PLATELET VOLUME 9.9 fl; NEUTROPHILE ABSOLUTE 6.3 Th/cmm (1.8-8.0); PLATELET COUNT 82 Th/cmm (150-400); RED BLOOD COUNT 5.17 Mil/cmm (3.80-5.80); RED CELL DISTRIBUTION WIDTH 17.5 % (11.5-20.0); WHITE BLOOD COUNT 8.3 Th/cmm (4.8-10.8)
[2016-09-16 05:53] LABS: ALB/GLOB RATIO 0.5 (1.0-1.8); ALKALINE PHOSPHATASE 113 U/L (34-104); ANION GAP 8.2 (7.0-16.0); BILIRUBIN,TOTAL 3.1 mg/dL (0.3-1.0); BUN - UREA NITROGEN 55 mg/dL (7-25); BUN/CREATININE RATIO 23.9; CALCIUM SERUM 7.4 mg/dL (8.6-10.3); CARBON DIOXIDE 25.7 mEq/L (21.0-31.0); CHLORIDE 105 mEq/L (98-107); CREATININE - SERUM 2.3 mg/dL (0.7-1.3); GLUCOSE 85 mg/dL (70-105); POTASSIUM SERUM 3.9 mEq/L (3.5-5.1); SGOT 52 U/L (13-39); SGPT/ALT 76 U/L (7-52); SODIUM SERUM 135 mEq/L (136-145)
[2016-09-16] MEDS: Multivitamin w/ Minerals Tab PO SCH (09:00)
[2016-09-16] MEDS: Lactobacillus Rhamnosus 10 Billion CFU Capsule PO SCH (09:41)
[2016-09-16] MEDS: Lactulose 10 Gm/15 mL 30mL UDC PO SCH (09:41)
[2016-09-16] MEDS: Sodium Chloride 0.9% 1,000 ML IV SCH (09:46)
--- NOTE | 2016-09-16 10:44 | Diagnostic Imaging Report ---
Portable chest x-ray HISTORY: Shortness of breath, vascular catheter placement The heart is enlarged. There is a poor inspiration with accentuation of the lower interstitial lung markings. Faint linear density seen in the left perihilar region that may be associated with subsegmental atelectasis. There is a left transsubclavian vascular catheter with the tip situated in the superior vena cava at the junction with the left brachiocephalic vein. No pneumothorax. IMPRESSION: 1. Vascular catheter tip situated in the region of the superior vena cava at the junction with the left brachiocephalic vein. 2. Cardiomegaly 3. Accentuation of the interstitial lung markings. This may be related to a poor inspiration. A degree of congestive heart failure cannot be excluded. Clinical correlation is needed.
--- NOTE | 2016-09-16 11:06 | History & Physical Pre-OP ---
PREOPERATIVE DIAGNOSES: 1. Malfunctioning Delio catheter, left subclavian vein. 2. Acute renal failure. 3. Diabetes mellitus. 4. Hypertension. POSTOPERATIVE DIAGNOSES: 1. Malfunctioning Delio catheter, left subclavian vein. 2. Acute renal failure. 3. Diabetes mellitus. 4. Hypertension. OPERATION DONE: Replacement of Delio catheter. Consent was obtained via the phone from the . DETAILS OF PROCEDURE: The existing Delio catheter was prepped with Betadine and draped in appropriate manner. Then, 1% lidocaine was used to infiltrate the exit site of the catheter. A guidewire was inserted into venous port. The old catheter was removed and replaced. There was good inflow and outflow of the catheter following irrigation and 2 mL of heparin was instilled into each port. Portable chest x-ray will be done. JOB# [id number]
--- NOTE | 2016-09-16 12:39 | General Progress Note ---
Subjective - Review of Systems Service Date: 09/16/16 Subjective: I am hungry Objective - Results Result Diagrams: 09/16/16 05:12 09/16/16 05:12 Recent Labs: Laboratory Last Values WBC 8.3 Th/cmm (4.8-10.8) 09/16/16 05:12 RBC 5.17 Mil/cmm (3.80-5.80) 09/16/16 05:12 Hgb 13.7 gm/dL (12.6-17.4) 09/16/16 05:12 Hct 41.7 % (39.0-49.0) 09/16/16 05:12 MCV 80.7 fl (80-99) 09/16/16 05:12 MCH 26.4 pg (27.0-31.0) L 09/16/16 05:12 MCHC Differential 32.8 pg (28.0-36.0) 09/16/16 05:12 RDW 17.5 % (11.5-20.0) 09/16/16 05:12 Plt Count 82 Th/cmm (150-400) L 09/16/16 05:12 MPV 9.9 fl 09/16/16 05:12 Neutrophils % 75.1 % (40.0-80.0) 09/16/16 05:12 Band Neutrophils % 2 % (0-10) 09/14/16 08:00 Lymphocytes % 10.1 % (20.0-50.0) L 09/16/16 05:12 Monocytes % 12.1 % (2.0-10.0) H 09/16/16 05:12 Eosinophils % 2.7 % (0.0-5.0) 09/16/16 05:12 Basophils % 0.0 % (0.0-2.0) 09/16/16 05:12 Neutrophils (Manual) 78 % (40-80) 09/14/16 08:00 Lymphocytes 12 % (20-50) L 09/14/16 08:00 Monocytes 6 % (2-10) 09/14/16 08:00 Eosinophils 2 % (0-5) 09/14/16 08:00 Platelet Estimate DECREASED PLATELETS (NORMAL) 09/14/16 08:00 Platelet Morphology NORMAL (NORMAL) 09/14/16 08:00 Polychromasia 1+ 09/10/16 05:17 Anisocytosis 1+ 09/09/16 17:39 RBC Morph Micro Appear NORMAL (NORMAL) 09/14/16 08:00 Eos Smear Source URINE 09/12/16 05:30 Eos Smear Total Cells NONE SEEN (NONE SEEN) 09/12/16 05:30 PT 19.8 SECONDS (9.5-11.5) H 09/14/16 08:00 INR 1.92 (0.5-1.4) H 09/14/16 08:00 Sodium 135 mEq/L (136-145) L 09/16/16 05:12 Potassium 3.9 mEq/L (3.5-5.1) 09/16/16 05:12 Chloride 105 mEq/L (98-107) 09/16/16 05:12 Carbon Dioxide 25.7 mEq/L (21.0-31.0) 09/16/16 05:12 Anion Gap 8.2 (7.0-16.0) 09/16/16 05:12 BUN 55 mg/dL (7-25) H 09/16/16 05:12 Creatinine 2.3 mg/dL (0.7-1.3) H 09/16/16 05:12 Est GFR ( Amer) TNP 09/16/16 05:12 Est GFR (Non-Af Amer) TNP 09/16/16 05:12 BUN/Creatinine Ratio 23.9 09/16/16 05:12 Glucose 85 mg/dL (70-105) 09/16/16 05:12 Calcium 7.4 mg/dL (8.6-10.3) L 09/16/16 05:12 Phosphorus 4.5 mg/dL (2.5-5.0) 09/11/16 05:01 Magnesium 2.8 mg/dL (1.9-2.7) H 09/11/16 05:01 Total Bilirubin 3.1 mg/dL (0.3-1.0) H 09/16/16 05:12 AST 52 U/L (13-39) H 09/16/16 05:12 ALT 76 U/L (7-52) H 09/16/16 05:12 Alkaline Phosphatase 113 U/L (34-104) H 09/16/16 05:12 Ammonia 74 umol/L (16-53) H 09/14/16 08:00 Troponin I 0.06 ng/mL (0.01-0.05) H D 09/11/16 09:15 B-Natriuretic Peptide > 5000.0 pg/mL (5.0-100.0) H 09/16/16 05:12 Total Protein 5.5 gm/dL (6.0-8.3) L 09/16/16 05:12 Albumin 1.9 gm/dL (4.2-5.5) L 09/16/16 05:12 Globulin 3.6 gm/dL 09/16/16 05:12 Albumin/Globulin Ratio 0.5 (1.0-1.8) L 09/16/16 05:12 TSH 0.97 uIU/ml (0.34-5.60) 09/09/16 17:39 Urine Source MIDSTREAM 09/12/16 05:30 Urine Color ALEC 09/12/16 05:30 Urine Clarity CLEAR (CLEAR) 09/12/16 05:30 Urine pH 5.0 09/12/16 05:30 Ur Specific [place] 1.030 (1.005-1.030) 09/12/16 05:30 Urine Protein >300 mg/dL (NEGATIVE) H 09/12/16 05:30 Urine Glucose (UA) NEGATIVE mg/dL (NEGATIVE) 09/12/16 05:30 Urine Ketones NEGATIVE mg/dL (NEGATIVE) 09/12/16 05:30 Urine Blood TRACE (NEGATIVE) 09/12/16 05:30 Urine Nitrate NEGATIVE (NEGATIVE) 09/12/16 05:30 Urine Bilirubin SMALL (NEGATIVE) H 09/12/16 05:30 Urine Urobilinogen 1.0 E.U./dL (0.2 - 1.0) 09/12/16 05:30 Ur Leukocyte Esterase NEGATIVE (NEGATIVE) 09/12/16 05:30 Urine RBC 0-2 /hpf (0-5) H 09/12/16 05:30 Urine WBC 0-2 /hpf (0-5) 09/12/16 05:30 Ur Epithelial Cells FEW /lpf (FEW) 09/12/16 05:30 Urine Bacteria FEW /hpf (NONE SEEN) 09/12/16 05:30 Hyaline Casts 0-2 /lpf (0-2) H 09/12/16 05:30 Ur Random Sodium 10 mmol/L 09/12/16 05:30 Urine Creatinine 200.0 mg/dl (39.0-259.0) 09/12/16 05:30 RPR NONREACTIVE (NONREACTIVE) 09/09/16 17:39 Blood Type A POSITIVE 09/14/16 09:15 - Physical Exam Vitals and I&O: Vital Signs Temp 98 F 09/16/16 04:04 Pulse 82 09/16/16 11:12 Resp 18 09/16/16 11:12 BP 112/68 09/16/16 09:41 Pulse Ox 95 09/16/16 11:12 Intake & Output 09/15/16 09/16/16 09/16/16 18:59 06:59 18:59 Intake Total 1200 200 907.667 Balance 1200 200 907.667 Intake: Intake, IV Amount 50 907.667 Sodium Chloride 0.9% 1, 907.667 000 ml @ 10 mls/hr IV . Q24H [facility] Rx#:[id number] [id number] 1 gm In 50 Dextrose 5% 50 ml @ 100 mls/hr IV Q24H [facility] Rx#: [id number] Oral 1200 150 Other: # Voids 5 1 # Bowel Movements 0 0 Stool Characteristics Formed Brown Active Medications: Current Medications Acetaminophen (Tylenol) 650 mg PO Q4HR PRN PRN Reason: Pain Stop: 11/08/16 20:54 Last Admin: 09/15/16 13:20 Dose: 650 mg Albuterol/Ipratropium (Duoneb Neb) 3 ml HHN Q4HRT [facility] Stop: 11/09/16 10:59 Last Admin: 09/16/16 11:12 Dose: 3 ml Ascorbic Acid (Vitamin C) 500 mg PO DAILY [facility] Stop: 11/09/16 08:59 Last Admin: 09/16/16 09:41 Dose: 500 mg Carvedilol (Coreg) 6.25 mg PO Q12H [facility] Stop: 11/08/16 20:59 Last Admin: 09/16/16 09:40 Dose: 6.25 mg Docusate Sodium (Colace) 100 mg PO DAILY [facility] Stop: 11/09/16 08:59 Last Admin: 09/16/16 09:41 Dose: 100 mg Furosemide (Lasix) 40 mg IVP BID [facility] Stop: 11/11/16 16:59 Last Admin: 09/16/16 09:41 Dose: 40 mg Ceftriaxone Sodium 1 gm/ (Dextrose) 50 mls @ 100 mls/hr IV Q24H [facility] Stop: 11/09/16 20:59 Last Infusion: 09/15/16 21:05 Dose: Infused Sodium Chloride (Nacl 0.9%) 1,000 mls @ 10 mls/hr IV .Q24H [facility] Stop: 11/08/16 20:59 Last Admin: 09/16/16 09:46 Dose: 10 mls/hr Lactobacillus Rhamnosus (Culturelle) 1 each PO DAILY [facility] Stop: 11/10/16 08:59 Last Admin: 09/16/16 09:41 Dose: 1 each Lactulose (Cephulac) 30 gm PO DAILY [facility] Stop: 11/12/16 13:44 Last Admin: 09/16/16 09:41 Dose: 30 gm Magnesium Hydroxide (Milk Of Magnesia) 30 ml PO DAILY PRN PRN Reason: Constipation Stop: 11/08/16 20:54 Last Admin: 09/12/16 11:30 Dose: 30 ml Miscellaneous (Probiotic Screen) 1 ea PRN PRN PRN Reason: PROTOCOL Stop: 11/09/16 11:19 Miscellaneous (Vte Chemical Prophylaxis Screen/ Admission) 1 ea PRN PRN PRN Reason: PROTOCOL Stop: 11/09/16 17:18 Miscellaneous (Clinical Monitoring) 1 ea PRN PRN PRN Reason: RENAL DOSING Stop: 11/12/16 12:53 Promethazine HCl/Dextromethorphan (Phenergan Dm 6.25/15mg-5 Ml) 5 ml PO Q4H PRN PRN Reason: Cough Stop: 11/09/16 07:02 Last Admin: 09/11/16 08:41 Dose: 5 ml Quetiapine Fumarate (Seroquel) 12.5 mg PO HS GOOD PRN Reason: Protocol Stop: 11/14/16 20:59 Last Admin: 09/15/16 20:38 Dose: 12.5 mg Sodium Bicarbonate (Sodium Bicarbonate) 650 mg PO BID GOOD PRN Reason: Protocol Stop: 11/12/16 16:59 Last Admin: 09/16/16 09:42 Dose: 650 mg Tamsulosin HCl (Flomax) 0.4 mg PO HS [facility] Stop: 11/08/16 20:59 Last Admin: 09/15/16 20:38 Dose: 0.4 mg General: Alert, Other (Confused) HEENT: Atraumatic Neck: Supple Cardiovascular: Regular rate Lungs: Other (Rude respiration, Abundant secretions.) Abdomen: Bowel sounds, Soft Extremities: Other (Edema 1+ of lower extremities) Neurological: Other (Non Ambulatory) Skin: Other (Warm and dry) Psych/Mental Status: Other (Confused, agitated at moments) - Procedures Procedures: Procedures Procedure Code Date GROUP PSYCHOTHERAPY 52198 07/07/15 GROUP PSYCHOTHERAPY GZHZZZZ 07/07/15 INSERT TUNNELED CV CATH 64311 09/09/16 INSERTION OF INFUSION DEV INTO L SUBCLAV VEIN, PERC APPROACH [id number] 09/09/16 OTHER GROUP THERAPY 94.44 10/17/13 ULTRASONOGRAPHY OF LEFT SUBCLAVIAN VEIN, GUIDANCE [id number] 09/09/16 Assessment/Plan - Problem List Patient Problems: All Active Problems Diabetes mellitus (Active) E11.9 Congestive heart failure (Acute) I50.9 Dementia with behavioral disturbance (Acute) F03.91 Hypothyroidism (Acute) E03.9 Mental health disorder (Acute) F99 Psychosis (Acute) F29 SEXUALLY INAPPROPRIATE BEHAVIOR (Acute) - Assessment Assessment: Patient is confused. Creatinine improving, BNP worsening, CXR shows possible Cardiopulmonary edema. - Plan Plan: Continue with HD. Delio catheter replaced. Will continue to monitoring
--- NOTE | 2016-09-16 13:25 | General Progress Note ---
Subjective - Review of Systems Service Date: 09/16/16 Subjective: stuporous, less agitated, comfortable Objective - Results Result Diagrams: 09/16/16 05:12 09/16/16 05:12 Recent Labs: Laboratory Last Values WBC 8.3 Th/cmm (4.8-10.8) 09/16/16 05:12 RBC 5.17 Mil/cmm (3.80-5.80) 09/16/16 05:12 Hgb 13.7 gm/dL (12.6-17.4) 09/16/16 05:12 Hct 41.7 % (39.0-49.0) 09/16/16 05:12 MCV 80.7 fl (80-99) 09/16/16 05:12 MCH 26.4 pg (27.0-31.0) L 09/16/16 05:12 MCHC Differential 32.8 pg (28.0-36.0) 09/16/16 05:12 RDW 17.5 % (11.5-20.0) 09/16/16 05:12 Plt Count 82 Th/cmm (150-400) L 09/16/16 05:12 MPV 9.9 fl 09/16/16 05:12 Neutrophils % 75.1 % (40.0-80.0) 09/16/16 05:12 Band Neutrophils % 2 % (0-10) 09/14/16 08:00 Lymphocytes % 10.1 % (20.0-50.0) L 09/16/16 05:12 Monocytes % 12.1 % (2.0-10.0) H 09/16/16 05:12 Eosinophils % 2.7 % (0.0-5.0) 09/16/16 05:12 Basophils % 0.0 % (0.0-2.0) 09/16/16 05:12 Neutrophils (Manual) 78 % (40-80) 09/14/16 08:00 Lymphocytes 12 % (20-50) L 09/14/16 08:00 Monocytes 6 % (2-10) 09/14/16 08:00 Eosinophils 2 % (0-5) 09/14/16 08:00 Platelet Estimate DECREASED PLATELETS (NORMAL) 09/14/16 08:00 Platelet Morphology NORMAL (NORMAL) 09/14/16 08:00 Polychromasia 1+ 01/06/17 05:17 Anisocytosis 1+ 09/09/16 17:39 RBC Morph Micro Appear NORMAL (NORMAL) 09/14/16 08:00 Eos Smear Source URINE 09/12/16 05:30 Eos Smear Total Cells NONE SEEN (NONE SEEN) 09/12/16 05:30 PT 19.8 SECONDS (9.5-11.5) H 09/14/16 08:00 INR 1.92 (0.5-1.4) H 09/14/16 08:00 Sodium 135 mEq/L (136-145) L 09/16/16 05:12 Potassium 3.9 mEq/L (3.5-5.1) 09/16/16 05:12 Chloride 105 mEq/L (98-107) 09/16/16 05:12 Carbon Dioxide 25.7 mEq/L (21.0-31.0) 09/16/16 05:12 Anion Gap 8.2 (7.0-16.0) 09/16/16 05:12 BUN 55 mg/dL (7-25) H 09/16/16 05:12 Creatinine 2.3 mg/dL (0.7-1.3) H 09/16/16 05:12 Est GFR ( Amer) TNP 09/16/16 05:12 Est GFR (Non-Af Amer) TNP 09/16/16 05:12 BUN/Creatinine Ratio 23.9 09/16/16 05:12 Glucose 85 mg/dL (70-105) 09/16/16 05:12 Calcium 7.4 mg/dL (8.6-10.3) L 09/16/16 05:12 Phosphorus 4.5 mg/dL (2.5-5.0) 09/11/16 05:01 Magnesium 2.8 mg/dL (1.9-2.7) H 09/11/16 05:01 Total Bilirubin 3.1 mg/dL (0.3-1.0) H 09/16/16 05:12 AST 52 U/L (13-39) H 09/16/16 05:12 ALT 76 U/L (7-52) H 09/16/16 05:12 Alkaline Phosphatase 113 U/L (34-104) H 09/16/16 05:12 Ammonia 74 umol/L (16-53) H 09/14/16 08:00 Troponin I 0.06 ng/mL (0.01-0.05) H D 09/11/16 09:15 B-Natriuretic Peptide > 5000.0 pg/mL (5.0-100.0) H 09/16/16 05:12 Total Protein 5.5 gm/dL (6.0-8.3) L 09/16/16 05:12 Albumin 1.9 gm/dL (4.2-5.5) L 09/16/16 05:12 Globulin 3.6 gm/dL 09/16/16 05:12 Albumin/Globulin Ratio 0.5 (1.0-1.8) L 09/16/16 05:12 TSH 0.97 uIU/ml (0.34-5.60) 09/09/16 17:39 Urine Source MIDSTREAM 09/12/16 05:30 Urine Color ALEC 09/12/16 05:30 Urine Clarity CLEAR (CLEAR) 09/12/16 05:30 Urine pH 5.0 09/12/16 05:30 Ur Specific [place] 1.030 (1.005-1.030) 09/12/16 05:30 Urine Protein >300 mg/dL (NEGATIVE) H 09/12/16 05:30 Urine Glucose (UA) NEGATIVE mg/dL (NEGATIVE) 09/12/16 05:30 Urine Ketones NEGATIVE mg/dL (NEGATIVE) 09/12/16 05:30 Urine Blood TRACE (NEGATIVE) 09/12/16 05:30 Urine Nitrate NEGATIVE (NEGATIVE) 09/12/16 05:30 Urine Bilirubin SMALL (NEGATIVE) H 09/12/16 05:30 Urine Urobilinogen 1.0 E.U./dL (0.2 - 1.0) 09/12/16 05:30 Ur Leukocyte Esterase NEGATIVE (NEGATIVE) 09/12/16 05:30 Urine RBC 0-2 /hpf (0-5) H 09/12/16 05:30 Urine WBC 0-2 /hpf (0-5) 09/12/16 05:30 Ur Epithelial Cells FEW /lpf (FEW) 09/12/16 05:30 Urine Bacteria FEW /hpf (NONE SEEN) 09/12/16 05:30 Hyaline Casts 0-2 /lpf (0-2) H 09/12/16 05:30 Ur Random Sodium 10 mmol/L 09/12/16 05:30 Urine Creatinine 200.0 mg/dl (39.0-259.0) 09/12/16 05:30 RPR NONREACTIVE (NONREACTIVE) 09/09/16 17:39 Blood Type A POSITIVE 09/14/16 09:15 - Physical Exam Vitals and I&O: Vital Signs Temp 98.8 F 09/16/16 08:00 Pulse 82 09/16/16 11:12 Resp 18 09/16/16 11:12 BP 112/68 09/16/16 09:41 Pulse Ox 95 09/16/16 11:12 Intake & Output 09/15/16 09/16/16 09/16/16 18:59 06:59 18:59 Intake Total 1200 200 907.667 Balance 1200 200 907.667 Intake: Intake, IV Amount 50 907.667 Sodium Chloride 0.9% 1, 907.667 000 ml @ 10 mls/hr IV . Q24H [facility] Rx#:[id number] cefTRIAXone 1 gm In 50 Dextrose 5% 50 ml @ 100 mls/hr IV Q24H [facility] Rx#: [id number] Oral 1200 150 Other: # Voids 5 1 # Bowel Movements 0 0 Stool Characteristics Formed Brown Active Medications: Current Medications Acetaminophen (Tylenol) 650 mg PO Q4HR PRN PRN Reason: Pain Stop: 11/08/16 20:54 Last Admin: 09/15/16 13:20 Dose: 650 mg Albuterol/Ipratropium (Duoneb Neb) 3 ml HHN Q4HRT [facility] Stop: 11/09/16 10:59 Last Admin: 09/16/16 11:12 Dose: 3 ml Ascorbic Acid (Vitamin C) 500 mg PO DAILY [facility] Stop: 11/09/16 08:59 Last Admin: 09/16/16 09:41 Dose: 500 mg Carvedilol (Coreg) 6.25 mg PO Q12H [facility] Stop: 11/08/16 20:59 Last Admin: 09/16/16 09:40 Dose: 6.25 mg Docusate Sodium (Colace) 100 mg PO DAILY [facility] Stop: 11/09/16 08:59 Last Admin: 09/16/16 09:41 Dose: 100 mg Furosemide (Lasix) 40 mg IVP BID [facility] Stop: 11/11/16 16:59 Last Admin: 09/16/16 09:41 Dose: 40 mg Ceftriaxone Sodium 1 gm/ (Dextrose) 50 mls @ 100 mls/hr IV Q24H [facility] Stop: 11/09/16 20:59 Last Infusion: 09/15/16 21:05 Dose: Infused Sodium Chloride (Nacl 0.9%) 1,000 mls @ 10 mls/hr IV .Q24H [facility] Stop: 11/08/16 20:59 Last Admin: 09/16/16 09:46 Dose: 10 mls/hr Lactobacillus Rhamnosus (Culturelle) 1 each PO DAILY [facility] Stop: 11/10/16 08:59 Last Admin: 09/16/16 09:41 Dose: 1 each Lactulose (Cephulac) 30 gm PO DAILY [facility] Stop: 11/12/16 13:44 Last Admin: 09/16/16 09:41 Dose: 30 gm Magnesium Hydroxide (Milk Of Magnesia) 30 ml PO DAILY PRN PRN Reason: Constipation Stop: 11/08/16 20:54 Last Admin: 09/12/16 11:30 Dose: 30 ml Miscellaneous (Probiotic Screen) 1 ea PRN PRN PRN Reason: PROTOCOL Stop: 11/09/16 11:19 Miscellaneous (Vte Chemical Prophylaxis Screen/ Admission) 1 ea PRN PRN PRN Reason: PROTOCOL Stop: 11/09/16 17:18 Miscellaneous (Clinical Monitoring) 1 ea PRN PRN PRN Reason: RENAL DOSING Stop: 11/12/16 12:53 Promethazine HCl/Dextromethorphan (Phenergan Dm 6.25/15mg-5 Ml) 5 ml PO Q4H PRN PRN Reason: Cough Stop: 11/09/16 07:02 Last Admin: 09/11/16 08:41 Dose: 5 ml Quetiapine Fumarate (Seroquel) 12.5 mg PO HS [facility] PRN Reason: Protocol Stop: 11/14/16 20:59 Last Admin: 09/15/16 20:38 Dose: 12.5 mg Sodium Bicarbonate (Sodium Bicarbonate) 650 mg PO BID [facility] PRN Reason: Protocol Stop: 11/12/16 16:59 Last Admin: 09/16/16 09:42 Dose: 650 mg Tamsulosin HCl (Flomax) 0.4 mg PO HS [facility] Stop: 11/08/16 20:59 Last Admin: 09/15/16 20:38 Dose: 0.4 mg General: No acute distress HEENT: Atraumatic, Mucous membr. moist/pink Neck: Supple, +2 carotid pulse wo bruit Cardiovascular: Regular rate, Normal S1, Normal S2 Lungs: Other (few rhonchi) Abdomen: Bowel sounds, Soft Extremities: Edema, Other (upper ext edema, (+) 3 bipedal edema) Neurological: Sensation intact Skin: no Rash - Procedures Procedures: Procedures Procedure Code Date GROUP PSYCHOTHERAPY 17767 07/07/15 GROUP PSYCHOTHERAPY [id number] 07/07/15 INSERT TUNNELED CV CATH 72026 09/09/16 INSERTION OF INFUSION DEV INTO L SUBCLAV VEIN, PERC APPROACH [id number] 09/09/16 OTHER GROUP THERAPY 94.44 10/17/13 ULTRASONOGRAPHY OF LEFT SUBCLAVIAN VEIN, GUIDANCE [id number] 09/09/16 Assessment/Plan - Problem List Patient Problems: All Active Problems Diabetes mellitus (Active) E11.9 Congestive heart failure (Acute) I50.9 Dementia with behavioral disturbance (Acute) F03.91 Hypothyroidism (Acute) E03.9 Mental health disorder (Acute) F99 Psychosis (Acute) F29 SEXUALLY INAPPROPRIATE BEHAVIOR (Acute) - Assessment Assessment: belia on ckd right lower lobe HAP hyperkalemia elevated BNP 2nd to ckd anemia of ckd BPH alhz dementia w/ behavioral disturbance HTN DJD peripheral edema elevated liver enzymes possibly fatty liver acute bronchospasm GB calculi, distended GB but no dilatation - Plan Plan: decrease ivf due to persistent lower ext edema continue breathing Tx elevated BNP likely due to ckd, but may also have cardiac component K has corrected f/u electrolytes cxr still w/ right lower lobe infiltrate, continue abx, ? chf kidneys not responding well to diuretics, will need dialysis scheduled for hd today
[2016-09-16] MEDS ORDERED: Albumin 25% 12.5gm/50mL 12.5 GM/50 ML BTL IV ONE (13:28)
[2016-09-17] MEDS: Albuterol/Ipratropium Neb 3 ML AERS HHN SCH ×6 (03:30→23:28)
[2016-09-17 05:36] LABS: % EOSINOPHILS 3.2 % (0.0-5.0); % LYMPHOCYTES 13.9 % (20.0-50.0); % MONOCYTES 14.2 % (2.0-10.0); % NEUTROPHILS 68.7 % (40.0-80.0); HEMATOCRIT 40.5 % (39.0-49.0); HEMOGLOBIN 13.3 gm/dL (12.6-17.4); MEAN CORPUSCULAR HEMOGLOBIN 26.6 pg (27.0-31.0); MEAN CORPUSCULAR HGB CONC 32.8 pg (28.0-36.0); MEAN PLATELET VOLUME 10.3 fl; NEUTROPHILE ABSOLUTE 5.3 Th/cmm (1.8-8.0); PLATELET COUNT 88 Th/cmm (150-400); RED CELL DISTRIBUTION WIDTH 18.1 % (11.5-20.0); WHITE BLOOD COUNT 7.7 Th/cmm (4.8-10.8)
[2016-09-17 05:45] LABS: ALB/GLOB RATIO 0.5 (1.0-1.8); ALKALINE PHOSPHATASE 113 U/L (34-104); ANION GAP 10.1 (7.0-16.0); BILIRUBIN,TOTAL 2.7 mg/dL (0.3-1.0); BUN - UREA NITROGEN 44 mg/dL (7-25); CALCIUM SERUM 7.7 mg/dL (8.6-10.3); CARBON DIOXIDE 25.7 mEq/L (21.0-31.0); CHLORIDE 105 mEq/L (98-107); CREATININE - SERUM 2.1 mg/dL (0.7-1.3); GLUCOSE 105 mg/dL (70-105); POTASSIUM SERUM 3.8 mEq/L (3.5-5.1); SGOT 51 U/L (13-39); SGPT/ALT 63 U/L (7-52); SODIUM SERUM 137 mEq/L (136-145)
[2016-09-17] MEDS: Multivitamin w/ Minerals Tab PO SCH (08:13)
[2016-09-17] MEDS: Lactulose 10 Gm/15 mL 30mL UDC PO SCH (08:13)
[2016-09-17] MEDS: Lactobacillus Rhamnosus 10 Billion CFU Capsule PO SCH (08:13)
--- NOTE | 2016-09-17 13:25 | General Progress Note ---
Subjective - Review of Systems Service Date: 09/17/16 Subjective: agitated, given sedative Objective - Results Result Diagrams: 09/17/16 04:44 09/17/16 04:44 Recent Labs: Laboratory Last Values WBC 7.7 Th/cmm (4.8-10.8) 09/17/16 04:44 RBC 5.00 Mil/cmm (3.80-5.80) 09/17/16 04:44 Hgb 13.3 gm/dL (12.6-17.4) 09/17/16 04:44 Hct 40.5 % (39.0-49.0) 09/17/16 04:44 MCV 81.0 fl (80-99) 09/17/16 04:44 MCH 26.6 pg (27.0-31.0) L 09/17/16 04:44 MCHC Differential 32.8 pg (28.0-36.0) 09/17/16 04:44 RDW 18.1 % (11.5-20.0) 09/17/16 04:44 Plt Count 88 Th/cmm (150-400) L 09/17/16 04:44 MPV 10.3 fl 09/17/16 04:44 Neutrophils % 68.7 % (40.0-80.0) 09/17/16 04:44 Band Neutrophils % 2 % (0-10) 09/14/16 08:00 Lymphocytes % 13.9 % (20.0-50.0) L 09/17/16 04:44 Monocytes % 14.2 % (2.0-10.0) H 09/17/16 04:44 Eosinophils % 3.2 % (0.0-5.0) 09/17/16 04:44 Basophils % 0.0 % (0.0-2.0) 09/17/16 04:44 Neutrophils (Manual) 78 % (40-80) 09/14/16 08:00 Lymphocytes 12 % (20-50) L 09/14/16 08:00 Monocytes 6 % (2-10) 09/14/16 08:00 Eosinophils 2 % (0-5) 09/14/16 08:00 Platelet Estimate DECREASED PLATELETS (NORMAL) 09/14/16 08:00 Platelet Morphology NORMAL (NORMAL) 09/14/16 08:00 Polychromasia 1+ 09/10/16 05:17 Anisocytosis 1+ 09/09/16 17:39 RBC Morph Micro Appear NORMAL (NORMAL) 09/14/16 08:00 Eos Smear Source URINE 09/12/16 05:30 Eos Smear Total Cells NONE SEEN (NONE SEEN) 09/12/16 05:30 PT 19.8 SECONDS (9.5-11.5) H 09/14/16 08:00 INR 1.92 (0.5-1.4) H 09/14/16 08:00 Sodium 137 mEq/L (136-145) 09/17/16 04:44 Potassium 3.8 mEq/L (3.5-5.1) 09/17/16 04:44 Chloride 105 mEq/L (98-107) 09/17/16 04:44 Carbon Dioxide 25.7 mEq/L (21.0-31.0) 09/17/16 04:44 Anion Gap 10.1 (7.0-16.0) 09/17/16 04:44 BUN 44 mg/dL (7-25) H 09/17/16 04:44 Creatinine 2.1 mg/dL (0.7-1.3) H 09/17/16 04:44 Est GFR ( Amer) TNP 09/17/16 04:44 Est GFR (Non-Af Amer) TNP 09/17/16 04:44 BUN/Creatinine Ratio 21.0 09/17/16 04:44 Glucose 105 mg/dL (70-105) 09/17/16 04:44 Calcium 7.7 mg/dL (8.6-10.3) L 09/17/16 04:44 Phosphorus 4.5 mg/dL (2.5-5.0) 09/11/16 05:01 Magnesium 2.8 mg/dL (1.9-2.7) H 09/11/16 05:01 Total Bilirubin 2.7 mg/dL (0.3-1.0) H 09/17/16 04:44 AST 51 U/L (13-39) H 09/17/16 04:44 ALT 63 U/L (7-52) H 09/17/16 04:44 Alkaline Phosphatase 113 U/L (34-104) H 09/17/16 04:44 Ammonia 74 umol/L (16-53) H 09/14/16 08:00 Troponin I 0.06 ng/mL (0.01-0.05) H D 09/11/16 09:15 B-Natriuretic Peptide 4670.0 pg/mL (5.0-100.0) H 09/17/16 04:44 Total Protein 5.5 gm/dL (6.0-8.3) L 09/17/16 04:44 Albumin 1.9 gm/dL (4.2-5.5) L 09/17/16 04:44 Globulin 3.6 gm/dL 09/17/16 04:44 Albumin/Globulin Ratio 0.5 (1.0-1.8) L 09/17/16 04:44 TSH 0.97 uIU/ml (0.34-5.60) 09/09/16 17:39 Urine Source MIDSTREAM 09/12/16 05:30 Urine Color ALEC 09/12/16 05:30 Urine Clarity CLEAR (CLEAR) 09/12/16 05:30 Urine pH 5.0 09/12/16 05:30 Ur Specific [place] 1.030 (1.005-1.030) 09/12/16 05:30 Urine Protein >300 mg/dL (NEGATIVE) H 09/12/16 05:30 Urine Glucose (UA) NEGATIVE mg/dL (NEGATIVE) 09/12/16 05:30 Urine Ketones NEGATIVE mg/dL (NEGATIVE) 09/12/16 05:30 Urine Blood TRACE (NEGATIVE) 09/12/16 05:30 Urine Nitrate NEGATIVE (NEGATIVE) 09/12/16 05:30 Urine Bilirubin SMALL (NEGATIVE) H 09/12/16 05:30 Urine Urobilinogen 1.0 E.U./dL (0.2 - 1.0) 09/12/16 05:30 Ur Leukocyte Esterase NEGATIVE (NEGATIVE) 09/12/16 05:30 Urine RBC 0-2 /hpf (0-5) H 09/12/16 05:30 Urine WBC 0-2 /hpf (0-5) 09/12/16 05:30 Ur Epithelial Cells FEW /lpf (FEW) 09/12/16 05:30 Urine Bacteria FEW /hpf (NONE SEEN) 09/12/16 05:30 Hyaline Casts 0-2 /lpf (0-2) H 09/12/16 05:30 Ur Random Sodium 10 mmol/L 09/12/16 05:30 Urine Creatinine 200.0 mg/dl (39.0-259.0) 09/12/16 05:30 RPR NONREACTIVE (NONREACTIVE) 09/09/16 17:39 Blood Type A POSITIVE 09/14/16 09:15 - Physical Exam Vitals and I&O: Vital Signs Temp 97.5 F 09/17/16 08:00 Pulse 86 09/17/16 12:44 Resp 20 09/17/16 11:25 BP 121/74 09/17/16 12:44 Pulse Ox 97 09/17/16 11:25 Intake & Output 09/16/16 09/17/16 09/17/16 18:59 06:59 18:59 Intake Total 991.667 100 Balance 991.667 100 Intake: Intake, IV Amount 991.667 50 Sodium Chloride 0.9% 1, 991.667 000 ml @ 10 mls/hr IV . Q24H [facility] Rx#:[id number] cefTRIAXone 1 gm In 50 Dextrose 5% 50 ml @ 100 mls/hr IV Q24H [facility] Rx#: [id number] Oral 50 Other: # Bowel Movements 0 Stool Characteristics Formed Formed Brown Brown Active Medications: Current Medications Acetaminophen (Tylenol) 650 mg PO Q4HR PRN PRN Reason: Pain Stop: 11/08/16 20:54 Last Admin: 09/15/16 13:20 Dose: 650 mg Albuterol/Ipratropium (Duoneb Neb) 3 ml HHN Q4HRT [facility] Stop: 11/09/16 10:59 Last Admin: 09/17/16 11:25 Dose: 3 ml Ascorbic Acid (Vitamin C) 500 mg PO DAILY [facility] Stop: 11/09/16 08:59 Last Admin: 09/17/16 08:13 Dose: 500 mg Carvedilol (Coreg) 6.25 mg PO Q12H [facility] Stop: 11/08/16 20:59 Last Admin: 09/17/16 08:13 Dose: 6.25 mg Docusate Sodium (Colace) 100 mg PO DAILY [facility] Stop: 11/09/16 08:59 Last Admin: 09/17/16 08:14 Dose: 100 mg Escitalopram Oxalate (Lexapro) 5 mg PO DAILY [facility] PRN Reason: Protocol Stop: 11/16/16 17:59 Furosemide (Lasix) 40 mg IVP BID [facility] Stop: 11/11/16 16:59 Last Admin: 09/17/16 08:13 Dose: 40 mg Hydralazine HCl (Apresoline) 10 mg PO BID [facility] Stop: 11/16/16 09:14 Last Admin: 09/17/16 12:44 Dose: 10 mg Ceftriaxone Sodium 1 gm/ (Dextrose) 50 mls @ 100 mls/hr IV Q24H [facility] Stop: 11/09/16 20:59 Last Infusion: 09/16/16 21:05 Dose: Infused Sodium Chloride (Nacl 0.9%) 1,000 mls @ 10 mls/hr IV .Q24H [facility] Stop: 11/08/16 20:59 Last Infusion: 09/16/16 18:10 Dose: 10 mls/hr Isosorbide Mononitrate (Imdur) 30 mg PO DAILY [facility] Stop: 11/16/16 09:14 Last Admin: 09/17/16 12:44 Dose: 30 mg Lactobacillus Rhamnosus (Culturelle) 1 each PO DAILY [facility] Stop: 11/10/16 08:59 Last Admin: 09/17/16 08:13 Dose: 1 each Lactulose (Cephulac) 30 gm PO DAILY [facility] Stop: 11/12/16 13:44 Last Admin: 09/17/16 08:13 Dose: 30 gm Lorazepam (Ativan) 1 mg IVP Q6HR PRN; Protocol PRN Reason: Agitation Stop: 11/15/16 21:26 Last Admin: 09/17/16 13:11 Dose: 1 mg Magnesium Hydroxide (Milk Of Magnesia) 30 ml PO DAILY PRN PRN Reason: Constipation Stop: 11/08/16 20:54 Last Admin: 09/12/16 11:30 Dose: 30 ml Miscellaneous (Probiotic Screen) 1 ea PRN PRN PRN Reason: PROTOCOL Stop: 11/09/16 11:19 Miscellaneous (Vte Chemical Prophylaxis Screen/ Admission) 1 ea PRN PRN PRN Reason: PROTOCOL Stop: 11/09/16 17:18 Miscellaneous (Clinical Monitoring) 1 ea PRN PRN PRN Reason: RENAL DOSING Stop: 11/12/16 12:53 Promethazine HCl/Dextromethorphan (Phenergan Dm 6.25/15mg-5 Ml) 5 ml PO Q4H PRN PRN Reason: Cough Stop: 11/09/16 07:02 Last Admin: 09/11/16 08:41 Dose: 5 ml Quetiapine Fumarate (Seroquel) 12.5 mg PO HS [facility] PRN Reason: Protocol Stop: 11/14/16 20:59 Last Admin: 09/16/16 20:23 Dose: 12.5 mg Sodium Bicarbonate (Sodium Bicarbonate) 650 mg PO BID [facility] PRN Reason: Protocol Stop: 11/12/16 16:59 Last Admin: 09/17/16 08:13 Dose: 650 mg Tamsulosin HCl (Flomax) 0.4 mg PO HS [facility] Stop: 11/08/16 20:59 Last Admin: 09/16/16 20:23 Dose: 0.4 mg General: No acute distress HEENT: Atraumatic, Mucous membr. moist/pink Neck: Supple, +2 carotid pulse wo bruit Cardiovascular: Regular rate, Normal S1, Normal S2 Lungs: Other (scattered rhonchi) Abdomen: Bowel sounds, Soft, no Tender Extremities: no Edema - Procedures Procedures: Procedures Procedure Code Date GROUP PSYCHOTHERAPY 94299 07/07/15 GROUP PSYCHOTHERAPY GZHZZZZ 07/07/15 INSERT TUNNELED CV CATH 67520 09/09/16 INSERTION OF INFUSION DEV INTO L SUBCLAV VEIN, PERC APPROACH [id number] 09/09/16 OTHER GROUP THERAPY 94.44 10/17/13 ULTRASONOGRAPHY OF LEFT SUBCLAVIAN VEIN, GUIDANCE [id number] 09/09/16 Assessment/Plan - Problem List Patient Problems: All Active Problems Diabetes mellitus (Active) E11.9 Congestive heart failure (Acute) I50.9 Dementia with behavioral disturbance (Acute) F03.91 Hypothyroidism (Acute) E03.9 Mental health disorder (Acute) F99 Psychosis (Acute) F29 SEXUALLY INAPPROPRIATE BEHAVIOR (Acute) - Assessment Assessment: belia on ckd right lower lobe HAP hyperkalemia elevated BNP 2nd to ckd anemia of ckd BPH alhz dementia w/ behavioral disturbance HTN DJD peripheral edema elevated liver enzymes possibly fatty liver acute bronchospasm GB calculi, distended GB but no dilatation - Plan Plan: decrease ivf due to persistent lower ext edema continue breathing Tx elevated BNP likely due to ckd, but may also have cardiac component K has corrected f/u electrolytes cxr still w/ right lower lobe infiltrate, continue abx, ? chf schedule for hd in am
[2016-09-17] MEDS: Escitalopram Oxalate 5 mg Tab PO SCH (17:31)
[2016-09-18 05:06] LABS: % BASOPHILS 0.1 % (0.0-2.0); % LYMPHOCYTES 14.1 % (20.0-50.0); % MONOCYTES 14.5 % (2.0-10.0); % NEUTROPHILS 67.3 % (40.0-80.0); HEMATOCRIT 38.1 % (39.0-49.0); HEMOGLOBIN 12.6 gm/dL (12.6-17.4); MEAN CELL VOLUME 80.7 fl (80-99); MEAN CORPUSCULAR HEMOGLOBIN 26.7 pg (27.0-31.0); MEAN PLATELET VOLUME 9.6 fl; NEUTROPHILE ABSOLUTE 5.3 Th/cmm (1.8-8.0); PLATELET COUNT 89 Th/cmm (150-400); RED BLOOD COUNT 4.72 Mil/cmm (3.80-5.80); RED CELL DISTRIBUTION WIDTH 18.6 % (11.5-20.0); WHITE BLOOD COUNT 7.8 Th/cmm (4.8-10.8)
[2016-09-18 05:24] LABS: BUN - UREA NITROGEN 43 mg/dL (7-25); BUN/CREATININE RATIO 23.9; CALCIUM SERUM 7.8 mg/dL (8.6-10.3); CARBON DIOXIDE 28.8 mEq/L (21.0-31.0); CHLORIDE 107 mEq/L (98-107); CREATININE - SERUM 1.8 mg/dL (0.7-1.3); GLUCOSE 93 mg/dL (70-105); MAGNESIUM 1.8 mg/dL (1.9-2.7); POTASSIUM SERUM 3.8 mEq/L (3.5-5.1); SODIUM SERUM 139 mEq/L (136-145)
[2016-09-18] MEDS: Albuterol/Ipratropium Neb 3 ML AERS HHN SCH ×5 (07:54→22:19)
[2016-09-18 09:01] LABS: INR 1.48 (0.5-1.4)
[2016-09-18] MEDS ORDERED: Bupivacaine 0.5% 10 mL Vial INJ ONE (09:16)
[2016-09-18] MEDS ORDERED: Lactated Ringer 1,000 ML IV SCH (09:30)
[2016-09-18] MEDS ORDERED: Midazolam 1mg/ml 2 ml vial IV ONE (09:34)
--- NOTE | 2016-09-18 09:49 | General Progress Note ---
Subjective - Review of Systems Service Date: 09/18/16 Subjective: agitated, given sedative Objective - Results Result Diagrams: 09/18/16 04:14 09/18/16 04:14 Recent Labs: Laboratory Last Values WBC 7.8 Th/cmm (4.8-10.8) 09/18/16 04:14 RBC 4.72 Mil/cmm (3.80-5.80) 09/18/16 04:14 Hgb 12.6 gm/dL (12.6-17.4) 09/18/16 04:14 Hct 38.1 % (39.0-49.0) L 09/18/16 04:14 MCV 80.7 fl (80-99) 09/18/16 04:14 MCH 26.7 pg (27.0-31.0) L 09/18/16 04:14 MCHC Differential 33.0 pg (28.0-36.0) 09/18/16 04:14 RDW 18.6 % (11.5-20.0) 09/18/16 04:14 Plt Count 89 Th/cmm (150-400) L 09/18/16 04:14 MPV 9.6 fl 09/18/16 04:14 Neutrophils % 67.3 % (40.0-80.0) 09/18/16 04:14 Band Neutrophils % 2 % (0-10) 09/14/16 08:00 Lymphocytes % 14.1 % (20.0-50.0) L 09/18/16 04:14 Monocytes % 14.5 % (2.0-10.0) H 09/18/16 04:14 Eosinophils % 4.0 % (0.0-5.0) 09/18/16 04:14 Basophils % 0.1 % (0.0-2.0) 09/18/16 04:14 Neutrophils (Manual) 78 % (40-80) 09/14/16 08:00 Lymphocytes 12 % (20-50) L 09/14/16 08:00 Monocytes 6 % (2-10) 09/14/16 08:00 Eosinophils 2 % (0-5) 09/14/16 08:00 Platelet Estimate DECREASED PLATELETS (NORMAL) 09/14/16 08:00 Platelet Morphology NORMAL (NORMAL) 09/14/16 08:00 Polychromasia 1+ 09/10/16 05:17 Anisocytosis 1+ 09/09/16 17:39 RBC Morph Micro Appear NORMAL (NORMAL) 09/14/16 08:00 Eos Smear Source URINE 09/12/16 05:30 Eos Smear Total Cells NONE SEEN (NONE SEEN) 09/12/16 05:30 PT 15.0 SECONDS (9.5-11.5) H 09/18/16 08:48 INR 1.48 (0.5-1.4) H 09/18/16 08:48 PTT (Actin FS) 33.8 SECONDS (26.0-38.0) 09/18/16 08:48 Sodium 139 mEq/L (136-145) 09/18/16 04:14 Potassium 3.8 mEq/L (3.5-5.1) 09/18/16 04:14 Chloride 107 mEq/L (98-107) 09/18/16 04:14 Carbon Dioxide 28.8 mEq/L (21.0-31.0) 09/18/16 04:14 Anion Gap 7.0 (7.0-16.0) 09/18/16 04:14 BUN 43 mg/dL (7-25) H 09/18/16 04:14 Creatinine 1.8 mg/dL (0.7-1.3) H 09/18/16 04:14 Est GFR ( Amer) TNP 09/18/16 04:14 Est GFR (Non-Af Amer) TNP 09/18/16 04:14 BUN/Creatinine Ratio 23.9 09/18/16 04:14 Glucose 93 mg/dL (70-105) 09/18/16 04:14 Calcium 7.8 mg/dL (8.6-10.3) L 09/18/16 04:14 Phosphorus 4.5 mg/dL (2.5-5.0) 09/11/16 05:01 Magnesium 1.8 mg/dL (1.9-2.7) L 09/18/16 04:14 Total Bilirubin 2.7 mg/dL (0.3-1.0) H 09/17/16 04:44 AST 51 U/L (13-39) H 09/17/16 04:44 ALT 63 U/L (7-52) H 09/17/16 04:44 Alkaline Phosphatase 113 U/L (34-104) H 09/17/16 04:44 Ammonia 74 umol/L (16-53) H 09/14/16 08:00 Troponin I 0.06 ng/mL (0.01-0.05) H D 09/11/16 09:15 B-Natriuretic Peptide 4670.0 pg/mL (5.0-100.0) H 09/17/16 04:44 Total Protein 5.5 gm/dL (6.0-8.3) L 09/17/16 04:44 Albumin 1.9 gm/dL (4.2-5.5) L 09/17/16 04:44 Globulin 3.6 gm/dL 09/17/16 04:44 Albumin/Globulin Ratio 0.5 (1.0-1.8) L 09/17/16 04:44 TSH 0.97 uIU/ml (0.34-5.60) 09/09/16 17:39 Urine Source MIDSTREAM 09/12/16 05:30 Urine Color ALEC 09/12/16 05:30 Urine Clarity CLEAR (CLEAR) 09/12/16 05:30 Urine pH 5.0 09/12/16 05:30 Ur Specific [place] 1.030 (1.005-1.030) 09/12/16 05:30 Urine Protein >300 mg/dL (NEGATIVE) H 09/12/16 05:30 Urine Glucose (UA) NEGATIVE mg/dL (NEGATIVE) 09/12/16 05:30 Urine Ketones NEGATIVE mg/dL (NEGATIVE) 09/12/16 05:30 Urine Blood TRACE (NEGATIVE) 09/12/16 05:30 Urine Nitrate NEGATIVE (NEGATIVE) 09/12/16 05:30 Urine Bilirubin SMALL (NEGATIVE) H 09/12/16 05:30 Urine Urobilinogen 1.0 E.U./dL (0.2 - 1.0) 09/12/16 05:30 Ur Leukocyte Esterase NEGATIVE (NEGATIVE) 09/12/16 05:30 Urine RBC 0-2 /hpf (0-5) H 09/12/16 05:30 Urine WBC 0-2 /hpf (0-5) 09/12/16 05:30 Ur Epithelial Cells FEW /lpf (FEW) 09/12/16 05:30 Urine Bacteria FEW /hpf (NONE SEEN) 09/12/16 05:30 Hyaline Casts 0-2 /lpf (0-2) H 09/12/16 05:30 Ur Random Sodium 10 mmol/L 09/12/16 05:30 Urine Creatinine 200.0 mg/dl (39.0-259.0) 09/12/16 05:30 RPR NONREACTIVE (NONREACTIVE) 09/09/16 17:39 Blood Type A POSITIVE 09/14/16 09:15 - Physical Exam Vitals and I&O: Vital Signs Temp 97.2 F 09/18/16 03:51 Pulse 84 09/18/16 07:50 Resp 20 09/18/16 07:50 BP 114/66 09/18/16 03:51 Pulse Ox 98 09/18/16 07:50 Intake & Output 09/17/16 09/18/16 09/18/16 18:59 06:59 18:59 Intake Total 250 200 Balance 250 200 Intake: Intake, IV Amount 50 cefTRIAXone 1 gm In 50 Dextrose 5% 50 ml @ 100 mls/hr IV Q24H [facility] Rx#: [id number] Oral 250 150 Other: # Voids 4 2 # Bowel Movements 0 Active Medications: Current Medications Acetaminophen (Tylenol) 650 mg PO Q4HR PRN PRN Reason: Pain Stop: 11/08/16 20:54 Last Admin: 09/15/16 13:20 Dose: 650 mg Albuterol/Ipratropium (Duoneb Neb) 3 ml HHN Q4HRT [facility] Stop: 11/09/16 10:59 Last Admin: 09/18/16 07:54 Dose: 3 ml Ascorbic Acid (Vitamin C) 500 mg PO DAILY [facility] Stop: 11/09/16 08:59 Last Admin: 09/17/16 08:13 Dose: 500 mg Carvedilol (Coreg) 6.25 mg PO Q12H [facility] Stop: 11/08/16 20:59 Last Admin: 09/17/16 20:25 Dose: 6.25 mg Docusate Sodium (Colace) 100 mg PO DAILY [facility] Stop: 11/09/16 08:59 Last Admin: 09/17/16 08:14 Dose: 100 mg Escitalopram Oxalate (Lexapro) 5 mg PO DAILY [facility] PRN Reason: Protocol Stop: 11/16/16 17:59 Last Admin: 09/17/16 17:31 Dose: 5 mg Furosemide (Lasix) 40 mg IVP BID [facility] Stop: 11/11/16 16:59 Last Admin: 09/17/16 17:27 Dose: 40 mg Hydralazine HCl (Apresoline) 10 mg PO BID [facility] Stop: 11/16/16 09:14 Last Admin: 09/17/16 17:00 Dose: Not Given Sodium Chloride (Nacl 0.9%) 1,000 mls @ 10 mls/hr IV .Q24H [facility] Stop: 11/08/16 20:59 Last Infusion: 09/16/16 18:10 Dose: 10 mls/hr Albumin Human (Albuminar 25%) 25 gm in 100 mls @ 50 mls/hr IV X1 ONE Stop: 09/18/16 15:25 Lactated Ringer's (Lactated Ringer) 1,000 mls @ 0 mls/hr IV .Q0M [facility] PRN Reason: TKO Stop: 09/19/16 09:29 Isosorbide Mononitrate (Imdur) 30 mg PO DAILY [facility] Stop: 11/16/16 09:14 Last Admin: 09/17/16 12:44 Dose: 30 mg Lactobacillus Rhamnosus (Culturelle) 1 each PO DAILY [facility] Stop: 11/10/16 08:59 Last Admin: 09/17/16 08:13 Dose: 1 each Lactulose (Cephulac) 30 gm PO DAILY [facility] Stop: 11/12/16 13:44 Last Admin: 09/17/16 08:13 Dose: 30 gm Lorazepam (Ativan) 1 mg IVP Q6HR PRN; Protocol PRN Reason: Agitation Stop: 11/15/16 21:26 Last Admin: 09/17/16 13:11 Dose: 1 mg Magnesium Hydroxide (Milk Of Magnesia) 30 ml PO DAILY PRN PRN Reason: Constipation Stop: 11/08/16 20:54 Last Admin: 09/12/16 11:30 Dose: 30 ml Miscellaneous (Probiotic Screen) 1 ea PRN PRN PRN Reason: PROTOCOL Stop: 11/09/16 11:19 Miscellaneous (Vte Chemical Prophylaxis Screen/ Admission) 1 ea PRN PRN PRN Reason: PROTOCOL Stop: 11/09/16 17:18 Miscellaneous (Clinical Monitoring) 1 ea PRN PRN PRN Reason: RENAL DOSING Stop: 11/12/16 12:53 Promethazine HCl/Dextromethorphan (Phenergan Dm 6.25/15mg-5 Ml) 5 ml PO Q4H PRN PRN Reason: Cough Stop: 11/09/16 07:02 Last Admin: 09/11/16 08:41 Dose: 5 ml Quetiapine Fumarate (Seroquel) 12.5 mg PO HS GOOD PRN Reason: Protocol Stop: 11/14/16 20:59 Last Admin: 09/17/16 20:23 Dose: 12.5 mg Sodium Bicarbonate (Sodium Bicarbonate) 650 mg PO BID GOOD PRN Reason: Protocol Stop: 11/12/16 16:59 Last Admin: 09/17/16 17:27 Dose: 650 mg Tamsulosin HCl (Flomax) 0.4 mg PO HS [facility] Stop: 11/08/16 20:59 Last Admin: 09/17/16 20:23 Dose: 0.4 mg General: No acute distress HEENT: Atraumatic, Mucous membr. moist/pink Neck: Supple, +2 carotid pulse wo bruit Cardiovascular: Regular rate, Normal S1, Normal S2 Lungs: Other (rhonchi) Abdomen: Bowel sounds, no Tender Extremities: no Edema - Procedures Procedures: Procedures Procedure Code Date GROUP PSYCHOTHERAPY 01274 07/07/15 GROUP PSYCHOTHERAPY GZHZZZZ 07/07/15 INSERT TUNNELED CV CATH 40333 09/09/16 INSERTION OF INFUSION DEV INTO L SUBCLAV VEIN, PERC APPROACH 32I083R 09/09/16 OTHER GROUP THERAPY 94.44 10/17/13 ULTRASONOGRAPHY OF LEFT SUBCLAVIAN VEIN, GUIDANCE [id number] 09/09/16 Assessment/Plan - Problem List Patient Problems: All Active Problems Diabetes mellitus (Active) E11.9 Congestive heart failure (Acute) I50.9 Dementia with behavioral disturbance (Acute) F03.91 Hypothyroidism (Acute) E03.9 Mental health disorder (Acute) F99 Psychosis (Acute) F29 SEXUALLY INAPPROPRIATE BEHAVIOR (Acute) - Assessment Assessment: belia on ckd right lower lobe HAP hyperkalemia elevated BNP 2nd to ckd anemia of ckd BPH alhz dementia w/ behavioral disturbance HTN DJD peripheral edema elevated liver enzymes possibly fatty liver acute bronchospasm GB calculi, distended GB but no dilatation - Plan Plan: decrease ivf due to persistent lower ext edema continue breathing Tx elevated BNP likely due to ckd, but may also have cardiac component replace mg f/u electrolytes cxr still w/ right lower lobe infiltrate, continue abx, ? chf schedule for hd today
[2016-09-18] MEDS: Lactulose 10 Gm/15 mL 30mL UDC PO SCH (11:20)
[2016-09-18] MEDS: Escitalopram Oxalate 5 mg Tab PO SCH (11:20)
[2016-09-18] MEDS: Multivitamin w/ Minerals Tab PO SCH (11:21)
[2016-09-18] MEDS: Lactobacillus Rhamnosus 10 Billion CFU Capsule PO SCH (11:22)
[2016-09-18] MEDS: Azithromycin 250 MG in Sodium Chloride 0.9% 250 ML IV SCH (11:39)
--- NOTE | 2016-09-18 12:08 | Operative Report ---
PREOPERATIVE DIAGNOSES: 1. Malfunctioning Delio catheter, left subclavian vein. 2. Acute renal failure on chronic kidney disease. 3. Diabetes mellitus. 4. Hypertension. POSTOPERATIVE DIAGNOSES: 1. Malfunctioning Delio catheter, left subclavian vein. 2. Acute renal failure on chronic kidney disease. 3. Diabetes mellitus. 4. Hypertension. OPERATION DONE: Placement of PermCath, left subclavian vein under fluoroscopy. SURGEON: Negin Butler MD ANESTHESIA: MAC. ANESTHESIOLOGIST: Amy Cohen M.D. DESCRIPTION OF PROCEDURE: The patient was given IV sedation. The left chest and the catheter component were prepped with Betadine and draped in appropriate manner. Then 1% lidocaine was used to infiltrate the exit site of the catheter. Guidewire was then inserted under fluoroscopy and was found to follow the course into the inferior vena cava. The introducer was placed over the guidewire under fluoroscopy. A 24 cm aspirated catheter was then placed into the introducer and the tip is in the inferior vena cava. This anchored to chest wall with 2-0 nylon. The patient tolerated procedure well. JOB# [id number]
[2016-09-18] MEDS ORDERED: Albumin 25% 25gm/100mL 25 GM/100 ML BTL IV ONE (13:26)
[2016-09-18 15:16] LABS: HEP B CORE IGM Negative (Negative); HEP C ANTIBODY <0.1 s/co ratio (0.0-0.9)
[2016-09-18] MEDS ORDERED: Heparin Sod 1,000 Units/mL 10ml HD SCH (18:00)
[2016-09-19] MEDS: Albuterol/Ipratropium Neb 3 ML AERS HHN SCH ×6 (02:34→22:42)
[2016-09-19 05:44] LABS: HEMATOCRIT 37.2 % (39.0-49.0); HEMOGLOBIN 12.2 gm/dL (12.6-17.4); MEAN CORPUSCULAR HEMOGLOBIN 26.6 pg (27.0-31.0); MEAN CORPUSCULAR HGB CONC 32.9 pg (28.0-36.0); MEAN PLATELET VOLUME 9.8 fl; PLATELET COUNT 86 Th/cmm (150-400); RED BLOOD COUNT 4.59 Mil/cmm (3.80-5.80); RED CELL DISTRIBUTION WIDTH 19.2 % (11.5-20.0); WHITE BLOOD COUNT 6.7 Th/cmm (4.8-10.8)
[2016-09-19 06:04] LABS: ANION GAP 8.4 (7.0-16.0); BUN - UREA NITROGEN 24 mg/dL (7-25); CHLORIDE 105 mEq/L (98-107); CREATININE - SERUM 1.6 mg/dL (0.7-1.3); GLUCOSE 84 mg/dL (70-105); POTASSIUM SERUM 3.4 mEq/L (3.5-5.1); SODIUM SERUM 135 mEq/L (136-145)
[2016-09-19 06:05] LABS: MAGNESIUM 1.7 mg/dL (1.9-2.7)
[2016-09-19] MEDS: Lactulose 10 Gm/15 mL 30mL UDC PO SCH (09:08)
[2016-09-19] MEDS: Escitalopram Oxalate 5 mg Tab PO SCH (09:08)
[2016-09-19] MEDS: Lactobacillus Rhamnosus 10 Billion CFU Capsule PO SCH (09:10)
[2016-09-19] MEDS: Multivitamin w/ Minerals Tab PO SCH (09:10)
[2016-09-19 10:49] LABS: ANISOCYTOSIS 1+; BAND NEUTROPHILE 7 % (0-10); EOSINOPHIL 3 % (0-5); NEUTROPHILS 69 % (40-80); PLATELET ESTIMATE DECREASED PLATELETS (NORMAL); PLATELET MORPHOLOGY GIANT PLATELETS SEEN (NORMAL); TOTAL CELLS COUNTED 100
--- NOTE | 2016-09-19 11:05 | Diagnostic Imaging Report ---
Portable chest x-ray HISTORY: Shortness of breath, vascular catheter placement Compared with the prior exam 09/16/2016, a left-sided vascular catheter is seen with the tip in the region of the superior vena cava. Density seen in the right and left lower hemithoracic regions consistent with bilateral pleural effusions. Underlying infiltrates cannot be excluded. IMPRESSION: 1. Vascular catheter tip in the region of the superior vena cava 2. No pneumothorax 3. Cardiomegaly with bilateral pleural effusions probably related to congestive heart failure. Underlying infiltrates cannot be excluded.
[2016-09-19] MEDS: Azithromycin 250 MG in Sodium Chloride 0.9% 250 ML IV SCH (12:04)
[2016-09-19] MEDS ORDERED: Mag Sulfate 2gm/50mL Premix 2 GM/50 ML BAG IV ONE (12:14)
[2016-09-19] MEDS ORDERED: cefTRIAXone 1 GM in Sodium Chloride 0.9% 50 ML IV SCH (12:30)
[2016-09-19] MEDS: cefTRIAXone 1 GM in 0.9% NS 50 ML IV SCH (15:33)
[2016-09-19] MEDS: KCL 20mEq/100mL Premix 20 MEQ/100 ML PIGGYBACK IV SCH ×2 (16:44→18:55)
--- NOTE | 2016-09-19 16:45 | General Progress Note ---
Subjective - Review of Systems Service Date: 09/19/16 Subjective: calmer today, daughter @ bedside Objective - Results Result Diagrams: 09/19/16 04:45 09/19/16 04:45 Recent Labs: Laboratory Last Values WBC 6.7 Th/cmm (4.8-10.8) 09/19/16 04:45 RBC 4.59 Mil/cmm (3.80-5.80) 09/19/16 04:45 Hgb 12.2 gm/dL (12.6-17.4) L 09/19/16 04:45 Hct 37.2 % (39.0-49.0) L 09/19/16 04:45 MCV 81.0 fl (80-99) 09/19/16 04:45 MCH 26.6 pg (27.0-31.0) L 09/19/16 04:45 MCHC Differential 32.9 pg (28.0-36.0) 09/19/16 04:45 RDW 19.2 % (11.5-20.0) 09/19/16 04:45 Plt Count 86 Th/cmm (150-400) L 09/19/16 04:45 MPV 9.8 fl 09/19/16 04:45 Neutrophils % 67.3 % (40.0-80.0) 09/18/16 04:14 Band Neutrophils % 7 % (0-10) 09/19/16 04:45 Lymphocytes % 14.1 % (20.0-50.0) L 09/18/16 04:14 Monocytes % 14.5 % (2.0-10.0) H 09/18/16 04:14 Eosinophils % 4.0 % (0.0-5.0) 09/18/16 04:14 Basophils % 0.1 % (0.0-2.0) 09/18/16 04:14 Neutrophils (Manual) 69 % (40-80) 09/19/16 04:45 Lymphocytes 12 % (20-50) L 09/19/16 04:45 Monocytes 9 % (2-10) 09/19/16 04:45 Eosinophils 3 % (0-5) 09/19/16 04:45 Platelet Estimate DECREASED PLATELETS (NORMAL) 09/19/16 04:45 Platelet Morphology GIANT PLATELETS SEEN (NORMAL) 09/19/16 04:45 Polychromasia 1+ 09/10/16 05:17 Anisocytosis 1+ 09/19/16 04:45 RBC Morph Micro Appear ABNORMAL (NORMAL) 09/19/16 04:45 Eos Smear Source URINE 09/12/16 05:30 Eos Smear Total Cells NONE SEEN (NONE SEEN) 09/12/16 05:30 PT 15.0 SECONDS (9.5-11.5) H 09/18/16 08:48 INR 1.48 (0.5-1.4) H 09/18/16 08:48 PTT (Actin FS) 33.8 SECONDS (26.0-38.0) 09/18/16 08:48 Sodium 135 mEq/L (136-145) L 09/19/16 04:45 Potassium 3.4 mEq/L (3.5-5.1) L 09/19/16 04:45 Chloride 105 mEq/L (98-107) 09/19/16 04:45 Carbon Dioxide 25.0 mEq/L (21.0-31.0) 09/19/16 04:45 Anion Gap 8.4 (7.0-16.0) 09/19/16 04:45 BUN 24 mg/dL (7-25) 09/19/16 04:45 Creatinine 1.6 mg/dL (0.7-1.3) H 09/19/16 04:45 Est GFR ( Amer) TNP 09/19/16 04:45 Est GFR (Non-Af Amer) TNP 09/19/16 04:45 BUN/Creatinine Ratio 15.0 09/19/16 04:45 Glucose 84 mg/dL (70-105) 09/19/16 04:45 Calcium 8.0 mg/dL (8.6-10.3) L 09/19/16 04:45 Phosphorus 4.5 mg/dL (2.5-5.0) 09/11/16 05:01 Magnesium 1.7 mg/dL (1.9-2.7) L 09/19/16 04:45 Total Bilirubin 2.7 mg/dL (0.3-1.0) H 09/17/16 04:44 AST 51 U/L (13-39) H 09/17/16 04:44 ALT 63 U/L (7-52) H 09/17/16 04:44 Alkaline Phosphatase 113 U/L (34-104) H 09/17/16 04:44 Ammonia 74 umol/L (16-53) H 09/14/16 08:00 Troponin I 0.06 ng/mL (0.01-0.05) H D 09/11/16 09:15 B-Natriuretic Peptide 3640.0 pg/mL (5.0-100.0) H 09/19/16 04:45 Total Protein 5.5 gm/dL (6.0-8.3) L 09/17/16 04:44 Albumin 1.9 gm/dL (4.2-5.5) L 09/17/16 04:44 Globulin 3.6 gm/dL 09/17/16 04:44 Albumin/Globulin Ratio 0.5 (1.0-1.8) L 09/17/16 04:44 TSH 3.62 uIU/ml (0.34-5.60) 09/18/16 11:07 Urine Source MIDSTREAM 09/12/16 05:30 Urine Color ALEC 09/12/16 05:30 Urine Clarity CLEAR (CLEAR) 09/12/16 05:30 Urine pH 5.0 09/12/16 05:30 Ur Specific [place] 1.030 (1.005-1.030) 09/12/16 05:30 Urine Protein >300 mg/dL (NEGATIVE) H 09/12/16 05:30 Urine Glucose (UA) NEGATIVE mg/dL (NEGATIVE) 09/12/16 05:30 Urine Ketones NEGATIVE mg/dL (NEGATIVE) 09/12/16 05:30 Urine Blood TRACE (NEGATIVE) 09/12/16 05:30 Urine Nitrate NEGATIVE (NEGATIVE) 09/12/16 05:30 Urine Bilirubin SMALL (NEGATIVE) H 09/12/16 05:30 Urine Urobilinogen 1.0 E.U./dL (0.2 - 1.0) 09/12/16 05:30 Ur Leukocyte Esterase NEGATIVE (NEGATIVE) 09/12/16 05:30 Urine RBC 0-2 /hpf (0-5) H 09/12/16 05:30 Urine WBC 0-2 /hpf (0-5) 09/12/16 05:30 Ur Epithelial Cells FEW /lpf (FEW) 09/12/16 05:30 Urine Bacteria FEW /hpf (NONE SEEN) 09/12/16 05:30 Hyaline Casts 0-2 /lpf (0-2) H 09/12/16 05:30 Ur Random Sodium 10 mmol/L 09/12/16 05:30 Urine Creatinine 200.0 mg/dl (39.0-259.0) 09/12/16 05:30 RPR NONREACTIVE (NONREACTIVE) 09/09/16 17:39 Hepatitis A IgM Ab Negative (Negative) 09/17/16 12:40 Hep Bs Antigen Negative (Negative) 09/17/16 12:40 Hep B Core IgM Ab Negative (Negative) 09/17/16 12:40 Hepatitis C Antibody <0.1 s/co ratio (0.0-0.9) 09/17/16 12:40 Blood Type A POSITIVE 09/14/16 09:15 - Physical Exam Vitals and I&O: Vital Signs Temp 97.7 F 09/19/16 12:00 Pulse 85 09/19/16 15:48 Resp 20 09/19/16 15:48 BP 100/54 09/19/16 16:31 Pulse Ox 97 09/19/16 15:48 Intake & Output 09/18/16 09/19/16 09/19/16 18:59 06:59 18:59 Intake Total 700 250 250 Output Total 2800 Balance 700 -2550 250 Intake: Intake, IV Amount 250 250 Azithromycin 250 mg In 250 250 Sodium Chloride 0.9% 250 ml @ 250 mls/hr IV Q24HR [facility] Rx#:[id number] Oral 450 250 Output: Urine 0 Emesis 2800 Other: # Voids 2 0 Active Medications: Current Medications Acetaminophen (Tylenol) 650 mg PO Q4HR PRN PRN Reason: Pain Stop: 11/08/16 20:54 Last Admin: 09/19/16 16:30 Dose: 650 mg Acetaminophen/Hydrocodone Bitart ([place] 5mg/325mg) 1 tab PO Q4H PRN PRN Reason: severe pain Stop: 11/18/16 12:22 Albuterol/Ipratropium (Duoneb Neb) 3 ml HHN Q4HRT [facility] Stop: 11/09/16 10:59 Last Admin: 09/19/16 15:48 Dose: 3 ml Ascorbic Acid (Vitamin C) 500 mg PO DAILY [facility] Stop: 11/09/16 08:59 Last Admin: 09/19/16 09:10 Dose: 500 mg Carvedilol (Coreg) 6.25 mg PO Q12H [facility] Stop: 11/08/16 20:59 Last Admin: 09/19/16 09:09 Dose: 6.25 mg Docusate Sodium (Colace) 100 mg PO DAILY [facility] Stop: 11/09/16 08:59 Last Admin: 09/19/16 09:10 Dose: 100 mg Escitalopram Oxalate (Lexapro) 5 mg PO DAILY [facility] PRN Reason: Protocol Stop: 11/16/16 17:59 Last Admin: 09/19/16 09:08 Dose: 5 mg Furosemide (Lasix) 40 mg IVP BID [facility] Stop: 11/11/16 16:59 Last Admin: 09/19/16 16:31 Dose: 40 mg Hydralazine HCl (Apresoline) 10 mg PO BID [facility] Stop: 11/16/16 09:14 Last Admin: 09/19/16 16:38 Dose: Not Given Sodium Chloride (Nacl 0.9%) 1,000 mls @ 10 mls/hr IV .Q24H [facility] Stop: 11/08/16 20:59 Last Infusion: 09/16/16 18:10 Dose: 10 mls/hr Azithromycin 250 mg/ Sodium (Chloride) 250 mls @ 250 mls/hr IV Q24HR [facility] Stop: 11/17/16 11:14 Last Infusion: 09/19/16 13:00 Dose: Infused Ceftriaxone Sodium 1 gm/ (Sodium Chloride) 50 mls @ 100 mls/hr IV Q24HR [facility] Stop: 11/18/16 15:14 Last Admin: 09/19/16 15:33 Dose: 100 mls/hr Isosorbide Mononitrate (Imdur) 30 mg PO DAILY [facility] Stop: 11/16/16 09:14 Last Admin: 09/19/16 09:00 Dose: Not Given Lactobacillus Rhamnosus (Culturelle) 1 each PO DAILY [facility] Stop: 11/10/16 08:59 Last Admin: 09/19/16 09:10 Dose: 1 each Lactulose (Cephulac) 30 gm PO DAILY [facility] Stop: 11/12/16 13:44 Last Admin: 09/19/16 09:08 Dose: 30 gm Lorazepam (Ativan) 1 mg IVP Q6HR PRN; Protocol PRN Reason: Agitation Stop: 11/15/16 21:26 Last Admin: 09/17/16 13:11 Dose: 1 mg Magnesium Hydroxide (Milk Of Magnesia) 30 ml PO DAILY PRN PRN Reason: Constipation Stop: 11/08/16 20:54 Last Admin: 09/12/16 11:30 Dose: 30 ml Magnesium Oxide (Mag-Oxide) 400 mg PO DAILY [facility] Stop: 11/17/16 09:59 Last Admin: 09/19/16 09:10 Dose: 400 mg Miscellaneous (Probiotic Screen) 1 ea PRN PRN PRN Reason: PROTOCOL Stop: 11/09/16 11:19 Miscellaneous (Vte Chemical Prophylaxis Screen/ Admission) 1 ea PRN PRN PRN Reason: PROTOCOL Stop: 11/09/16 17:18 Miscellaneous (Clinical Monitoring) 1 ea PRN PRN PRN Reason: RENAL DOSING Stop: 11/12/16 12:53 Promethazine HCl/Dextromethorphan (Phenergan Dm 6.25/15mg-5 Ml) 5 ml PO Q4H PRN PRN Reason: Cough Stop: 11/09/16 07:02 Last Admin: 09/11/16 08:41 Dose: 5 ml Quetiapine Fumarate (Seroquel) 12.5 mg PO HS [facility] PRN Reason: Protocol Stop: 11/14/16 20:59 Last Admin: 09/18/16 22:02 Dose: 12.5 mg Sodium Bicarbonate (Sodium Bicarbonate) 650 mg PO BID [facility] PRN Reason: Protocol Stop: 11/12/16 16:59 Last Admin: 09/19/16 16:30 Dose: 650 mg Tamsulosin HCl (Flomax) 0.4 mg PO HS [facility] Stop: 11/08/16 20:59 Last Admin: 09/18/16 22:01 Dose: 0.4 mg General: Mild distress (dr), Other (drowsy) HEENT: Atraumatic, Mucous membr. moist/pink Neck: Supple, +2 carotid pulse wo bruit Cardiovascular: Regular rate, Normal S1, Normal S2 Lungs: Other (rhonchi w/ rales) Abdomen: Bowel sounds, Soft Extremities: Edema, Other ((+) 3 bipedal edema, upper ext edema) Neurological: Sensation intact Skin: no Rash - Procedures Procedures: Procedures Procedure Code Date [facility] PSYCHOTHERAPY 46392 07/07/15 GROUP PSYCHOTHERAPY [id number] 07/07/15 INSERT TUNNELED CV CATH 19022 09/09/16 INSERTION OF INFUSION DEV INTO L SUBCLAV VEIN, PERC APPROACH [id number] 09/09/16 OTHER GROUP THERAPY 94.44 10/17/13 ULTRASONOGRAPHY OF LEFT SUBCLAVIAN VEIN, GUIDANCE [id number] 09/09/16 Assessment/Plan - Problem List Patient Problems: All Active Problems Diabetes mellitus (Active) E11.9 Congestive heart failure (Acute) I50.9 Dementia with behavioral disturbance (Acute) F03.91 Hypothyroidism (Acute) E03.9 Mental health disorder (Acute) F99 Psychosis (Acute) F29 SEXUALLY INAPPROPRIATE BEHAVIOR (Acute) - Assessment Assessment: belia on ckd right lower lobe HAP hypokalemia elevated BNP anemia of ckd BPH alhz dementia w/ behavioral disturbance HTN DJD peripheral edema elevated liver enzymes possibly fatty liver acute bronchospasm GB calculi, distended GB but no dilatation - Plan Plan: decrease ivf due to persistent lower ext edema continue breathing Tx replace mg, K f/u electrolytes cxr still w/ right lower lobe infiltrate, b/l effusions schedule for hd am, aware of cr. 1.6 but still w/ peripheral edema & decomp chf discussed w/ daughter @ bedside to encourage po intake
[2016-09-19] MEDS ORDERED: KCL 20mEq/100mL Premix 20 MEQ/100 ML PIGGYBACK IV ONE (18:53)
[2016-09-19] MEDS: Hydrocodone/APAP 5mg/325mg Tab PO PRN (20:01)
[2016-09-20] MEDS: Albuterol/Ipratropium Neb 3 ML AERS HHN SCH ×6 (02:56→23:30)
[2016-09-20 05:09] LABS: RED CELL DISTRIBUTION WIDTH 18.4 % (11.5-20.0)
[2016-09-20 05:20] LABS: ANION GAP 5.5 (7.0-16.0); BUN - UREA NITROGEN 33 mg/dL (7-25); BUN/CREATININE RATIO 14.3; CARBON DIOXIDE 25.5 mEq/L (21.0-31.0); CHLORIDE 104 mEq/L (98-107); CREATININE - SERUM 2.3 mg/dL (0.7-1.3); GLUCOSE 101 mg/dL (70-105); SODIUM SERUM 131 mEq/L (136-145)
[2016-09-20 05:25] LABS: HEMATOCRIT 38.3 % (39.0-49.0); HEMOGLOBIN 12.8 gm/dL (12.6-17.4); MEAN CELL VOLUME 81.7 fl (80-99); MEAN CORPUSCULAR HEMOGLOBIN 27.2 pg (27.0-31.0); MEAN CORPUSCULAR HGB CONC 33.3 pg (28.0-36.0); MEAN PLATELET VOLUME 9.7 fl; PLATELET COUNT 84 Th/cmm (150-400); WHITE BLOOD COUNT 6.2 Th/cmm (4.8-10.8)
[2016-09-20] MEDS: Escitalopram Oxalate 5 mg Tab PO SCH (08:52)
[2016-09-20] MEDS: Multivitamin w/ Minerals Tab PO SCH (08:53)
[2016-09-20] MEDS: Lactulose 10 Gm/15 mL 30mL UDC PO SCH (08:53)
[2016-09-20] MEDS: Lactobacillus Rhamnosus 10 Billion CFU Capsule PO SCH (08:53)
[2016-09-20 10:03] LABS: NEUTROPHILS 57 % (40-80); TOTAL CELLS COUNTED 100
[2016-09-20 10:04] LABS: ANISOCYTOSIS 1+; BAND NEUTROPHILE 4 % (0-10); EOSINOPHIL 12 % (0-5); PLATELET ESTIMATE DECREASED PLATELETS (NORMAL); PLATELET MORPHOLOGY GIANT PLATELETS SEEN (NORMAL)
--- NOTE | 2016-09-20 12:12 | General Progress Note ---
Subjective - Review of Systems Service Date: 09/20/16 Subjective: I want go home Objective - Results Result Diagrams: 09/20/16 04:40 09/20/16 04:40 Recent Labs: Laboratory Last Values WBC 6.2 Th/cmm (4.8-10.8) 09/20/16 04:40 RBC 4.70 Mil/cmm (3.80-5.80) 09/20/16 04:40 Hgb 12.8 gm/dL (12.6-17.4) 09/20/16 04:40 Hct 38.3 % (39.0-49.0) L 09/20/16 04:40 MCV 81.7 fl (80-99) 09/20/16 04:40 MCH 27.2 pg (27.0-31.0) 09/20/16 04:40 MCHC Differential 33.3 pg (28.0-36.0) 09/20/16 04:40 RDW 18.4 % (11.5-20.0) 09/20/16 04:40 Plt Count 84 Th/cmm (150-400) L 09/20/16 04:40 MPV 9.7 fl 09/20/16 04:40 Neutrophils % 67.3 % (40.0-80.0) 09/18/16 04:14 Band Neutrophils % 4 % (0-10) 09/20/16 04:40 Lymphocytes % 14.1 % (20.0-50.0) L 09/18/16 04:14 Monocytes % 14.5 % (2.0-10.0) H 09/18/16 04:14 Eosinophils % 4.0 % (0.0-5.0) 09/18/16 04:14 Basophils % 0.1 % (0.0-2.0) 09/18/16 04:14 Neutrophils (Manual) 57 % (40-80) 09/20/16 04:40 Lymphocytes 18 % (20-50) L 09/20/16 04:40 Monocytes 9 % (2-10) 09/20/16 04:40 Eosinophils 12 % (0-5) H 09/20/16 04:40 Platelet Estimate DECREASED PLATELETS (NORMAL) 09/20/16 04:40 Platelet Morphology GIANT PLATELETS SEEN (NORMAL) 09/20/16 04:40 Polychromasia 1+ 09/10/16 05:17 Anisocytosis 1+ 09/20/16 04:40 RBC Morph Micro Appear ABNORMAL (NORMAL) 09/20/16 04:40 Eos Smear Source URINE 09/12/16 05:30 Eos Smear Total Cells NONE SEEN (NONE SEEN) 09/12/16 05:30 PT 15.0 SECONDS (9.5-11.5) H 09/18/16 08:48 INR 1.48 (0.5-1.4) H 09/18/16 08:48 PTT (Actin FS) 33.8 SECONDS (26.0-38.0) 09/18/16 08:48 Sodium 131 mEq/L (136-145) L 09/20/16 04:40 Potassium 4.0 mEq/L (3.5-5.1) 09/20/16 04:40 Chloride 104 mEq/L (98-107) 09/20/16 04:40 Carbon Dioxide 25.5 mEq/L (21.0-31.0) 09/20/16 04:40 Anion Gap 5.5 (7.0-16.0) L 09/20/16 04:40 BUN 33 mg/dL (7-25) H 09/20/16 04:40 Creatinine 2.3 mg/dL (0.7-1.3) H 09/20/16 04:40 Est GFR ( Amer) TNP 09/20/16 04:40 Est GFR (Non-Af Amer) TNP 09/20/16 04:40 BUN/Creatinine Ratio 14.3 09/20/16 04:40 Glucose 101 mg/dL (70-105) 09/20/16 04:40 Calcium 8.0 mg/dL (8.6-10.3) L 09/20/16 04:40 Phosphorus 4.5 mg/dL (2.5-5.0) 09/11/16 05:01 Magnesium 2.3 mg/dL (1.9-2.7) 09/20/16 04:40 Total Bilirubin 2.7 mg/dL (0.3-1.0) H 09/17/16 04:44 AST 51 U/L (13-39) H 09/17/16 04:44 ALT 63 U/L (7-52) H 09/17/16 04:44 Alkaline Phosphatase 113 U/L (34-104) H 09/17/16 04:44 Ammonia 74 umol/L (16-53) H 09/14/16 08:00 Troponin I 0.06 ng/mL (0.01-0.05) H D 09/11/16 09:15 B-Natriuretic Peptide 3640.0 pg/mL (5.0-100.0) H 09/19/16 04:45 Total Protein 5.5 gm/dL (6.0-8.3) L 09/17/16 04:44 Albumin 1.9 gm/dL (4.2-5.5) L 09/17/16 04:44 Globulin 3.6 gm/dL 09/17/16 04:44 Albumin/Globulin Ratio 0.5 (1.0-1.8) L 09/17/16 04:44 TSH 3.62 uIU/ml (0.34-5.60) 09/18/16 11:07 Urine Source MIDSTREAM 09/12/16 05:30 Urine Color ALEC 09/12/16 05:30 Urine Clarity CLEAR (CLEAR) 09/12/16 05:30 Urine pH 5.0 09/12/16 05:30 Ur Specific [place] 1.030 (1.005-1.030) 09/12/16 05:30 Urine Protein >300 mg/dL (NEGATIVE) H 09/12/16 05:30 Urine Glucose (UA) NEGATIVE mg/dL (NEGATIVE) 09/12/16 05:30 Urine Ketones NEGATIVE mg/dL (NEGATIVE) 09/12/16 05:30 Urine Blood TRACE (NEGATIVE) 09/12/16 05:30 Urine Nitrate NEGATIVE (NEGATIVE) 09/12/16 05:30 Urine Bilirubin SMALL (NEGATIVE) H 09/12/16 05:30 Urine Urobilinogen 1.0 E.U./dL (0.2 - 1.0) 09/12/16 05:30 Ur Leukocyte Esterase NEGATIVE (NEGATIVE) 09/12/16 05:30 Urine RBC 0-2 /hpf (0-5) H 09/12/16 05:30 Urine WBC 0-2 /hpf (0-5) 09/12/16 05:30 Ur Epithelial Cells FEW /lpf (FEW) 09/12/16 05:30 Urine Bacteria FEW /hpf (NONE SEEN) 09/12/16 05:30 Hyaline Casts 0-2 /lpf (0-2) H 09/12/16 05:30 Ur Random Sodium 10 mmol/L 09/12/16 05:30 Urine Creatinine 200.0 mg/dl (39.0-259.0) 09/12/16 05:30 RPR NONREACTIVE (NONREACTIVE) 09/09/16 17:39 Hepatitis A IgM Ab Negative (Negative) 09/17/16 12:40 Hep Bs Antigen Negative (Negative) 09/17/16 12:40 Hep B Core IgM Ab Negative (Negative) 09/17/16 12:40 Hepatitis C Antibody <0.1 s/co ratio (0.0-0.9) 09/17/16 12:40 Blood Type A POSITIVE 09/14/16 09:15 - Physical Exam Vitals and I&O: Vital Signs Temp 98.6 F 09/20/16 08:00 Pulse 68 09/20/16 11:15 Resp 18 09/20/16 11:15 BP 99/65 09/20/16 08:54 Pulse Ox 98 09/20/16 11:15 Intake & Output 09/19/16 09/20/16 09/20/16 18:59 06:59 18:59 Intake Total 750 300 Output Total 0 Balance 750 300 Intake: Intake, IV Amount 350 Azithromycin 250 mg In 250 Sodium Chloride 0.9% 250 ml @ 250 mls/hr IV Q24HR [facility] Rx#:[id number] KCL 20mEq/100mL Premix 20 100 meq In 100 ml @ 50 mls/ hr IV Q2H [facility] Rx#: [id number] Oral 400 300 Output: Urine 0 Other: # Voids 1 # Bowel Movements 0 0 Active Medications: Current Medications Acetaminophen (Tylenol) 650 mg PO Q4HR PRN PRN Reason: Pain Stop: 11/08/16 20:54 Last Admin: 09/19/16 16:30 Dose: 650 mg Acetaminophen/Hydrocodone Bitart ([place] 5mg/325mg) 1 tab PO Q4H PRN PRN Reason: severe pain Stop: 11/18/16 12:22 Last Admin: 09/19/16 20:01 Dose: 1 tab Albuterol/Ipratropium (Duoneb Neb) 3 ml HHN Q4HRT [facility] Stop: 11/09/16 10:59 Last Admin: 09/20/16 11:15 Dose: 3 ml Ascorbic Acid (Vitamin C) 500 mg PO DAILY [facility] Stop: 11/09/16 08:59 Last Admin: 09/20/16 08:53 Dose: 500 mg Carvedilol (Coreg) 6.25 mg PO Q12H [facility] Stop: 11/08/16 20:59 Last Admin: 09/20/16 08:53 Dose: Not Given Docusate Sodium (Colace) 100 mg PO DAILY [facility] Stop: 11/09/16 08:59 Last Admin: 09/20/16 08:53 Dose: 100 mg Escitalopram Oxalate (Lexapro) 5 mg PO DAILY [facility] PRN Reason: Protocol Stop: 11/16/16 17:59 Last Admin: 09/20/16 08:52 Dose: 5 mg Furosemide (Lasix) 40 mg IVP BID GOOD Stop: 11/11/16 16:59 Last Admin: 09/20/16 08:54 Dose: 40 mg Hydralazine HCl (Apresoline) 10 mg PO BID GOOD Stop: 11/16/16 09:14 Last Admin: 09/20/16 08:54 Dose: Not Given Sodium Chloride (Nacl 0.9%) 1,000 mls @ 10 mls/hr IV .Q24H [facility] Stop: 11/08/16 20:59 Last Infusion: 09/16/16 18:10 Dose: 10 mls/hr Azithromycin 250 mg/ Sodium (Chloride) 250 mls @ 250 mls/hr IV Q24HR [facility] Stop: 11/17/16 11:14 Last Infusion: 09/19/16 13:00 Dose: Infused Ceftriaxone Sodium 1 gm/ (Sodium Chloride) 50 mls @ 100 mls/hr IV Q24HR [facility] Stop: 11/18/16 15:14 Last Admin: 09/19/16 15:33 Dose: 100 mls/hr Isosorbide Mononitrate (Imdur) 30 mg PO DAILY [facility] Stop: 11/16/16 09:14 Last Admin: 09/20/16 08:54 Dose: Not Given Lactobacillus Rhamnosus (Culturelle) 1 each PO DAILY [facility] Stop: 11/10/16 08:59 Last Admin: 09/20/16 08:53 Dose: 1 each Lactulose (Cephulac) 30 gm PO DAILY [facility] Stop: 11/12/16 13:44 Last Admin: 09/20/16 08:53 Dose: 30 gm Lorazepam (Ativan) 1 mg IVP Q6HR PRN; Protocol PRN Reason: Agitation Stop: 11/15/16 21:26 Last Admin: 09/19/16 22:59 Dose: 1 mg Magnesium Hydroxide (Milk Of Magnesia) 30 ml PO DAILY PRN PRN Reason: Constipation Stop: 11/08/16 20:54 Last Admin: 09/12/16 11:30 Dose: 30 ml Magnesium Oxide (Mag-Oxide) 400 mg PO DAILY [facility] Stop: 11/17/16 09:59 Last Admin: 09/20/16 08:53 Dose: 400 mg Miscellaneous (Probiotic Screen) 1 ea PRN PRN PRN Reason: PROTOCOL Stop: 11/09/16 11:19 Miscellaneous (Vte Chemical Prophylaxis Screen/ Admission) 1 ea PRN PRN PRN Reason: PROTOCOL Stop: 11/09/16 17:18 Miscellaneous (Clinical Monitoring) 1 ea PRN PRN PRN Reason: RENAL DOSING Stop: 11/12/16 12:53 Promethazine HCl/Dextromethorphan (Phenergan Dm 6.25/15mg-5 Ml) 5 ml PO Q4H PRN PRN Reason: Cough Stop: 11/09/16 07:02 Last Admin: 09/11/16 08:41 Dose: 5 ml Quetiapine Fumarate (Seroquel) 12.5 mg PO HS GOOD PRN Reason: Protocol Stop: 11/14/16 20:59 Last Admin: 09/19/16 20:02 Dose: 12.5 mg Sodium Bicarbonate (Sodium Bicarbonate) 650 mg PO BID GOOD PRN Reason: Protocol Stop: 11/12/16 16:59 Last Admin: 09/20/16 08:52 Dose: 650 mg Tamsulosin HCl (Flomax) 0.4 mg PO HS GOOD Stop: 11/08/16 20:59 Last Admin: 09/19/16 20:06 Dose: 0.4 mg General: Alert, Other (Confused) HEENT: Atraumatic Neck: Supple Cardiovascular: Regular rate Lungs: Other (Rude respiration, some secretions) Abdomen: Bowel sounds, Soft Extremities: Other (No edema) Neurological: Other (Non Ambulatory) Skin: Other (Warm and dry) Psych/Mental Status: Other (Confused) - Procedures Procedures: Procedures Procedure Code Date GROUP PSYCHOTHERAPY 09391 07/07/15 GROUP PSYCHOTHERAPY [id number] 07/07/15 INSERT TUNNELED CV CATH 04848 09/09/16 INSERTION OF INFUSION DEV INTO L SUBCLAV VEIN, PERC APPROACH [id number] 09/09/16 OTHER GROUP THERAPY 94.44 10/17/13 ULTRASONOGRAPHY OF LEFT SUBCLAVIAN VEIN, GUIDANCE [id number] 09/09/16 Assessment/Plan - Problem List Patient Problems: All Active Problems Diabetes mellitus (Active) E11.9 Congestive heart failure (Acute) I50.9 Dementia with behavioral disturbance (Acute) F03.91 Hypothyroidism (Acute) E03.9 Mental health disorder (Acute) F99 Psychosis (Acute) F29 SEXUALLY INAPPROPRIATE BEHAVIOR (Acute) - Assessment Assessment: Patient is confused. Creatinine improving, BNP high but satable. case discussed with family and explain them the poor prognosis. - Plan Plan: Patient will be discharge to [facility].
--- NOTE | 2016-09-20 12:15 | Diagnostic Imaging Report ---
Portable chest x-ray HISTORY: Shortness of breath, hemoptysis Compared with prior exam of 09/18/2016, there remains density in the right lower hemithorax with a pleural effusion. Probable left pleural effusion also noted. The heart is enlarged. IMPRESSION: 1. Little change with persistent cardiomegaly and bilateral pleural effusions. The findings may be associated with congestive heart failure. Clinical correlation is needed.
[2016-09-20] MEDS: Azithromycin 250 MG in Sodium Chloride 0.9% 250 ML IV SCH (13:37)
[2016-09-20] MEDS: cefTRIAXone 1 GM in 0.9% NS 50 ML IV SCH (15:41)
[2016-09-20] MEDS: Hydrocodone/APAP 5mg/325mg Tab PO PRN (17:12)
--- NOTE | 2016-09-20 17:48 | General Progress Note ---
Subjective - Review of Systems Service Date: 09/20/16 Subjective: more responsive, calmer today, daughter @ bedside Objective - Results Result Diagrams: 09/20/16 04:40 09/20/16 04:40 Recent Labs: Laboratory Last Values WBC 6.2 Th/cmm (4.8-10.8) 09/20/16 04:40 RBC 4.70 Mil/cmm (3.80-5.80) 09/20/16 04:40 Hgb 12.8 gm/dL (12.6-17.4) 09/20/16 04:40 Hct 38.3 % (39.0-49.0) L 09/20/16 04:40 MCV 81.7 fl (80-99) 09/20/16 04:40 MCH 27.2 pg (27.0-31.0) 09/20/16 04:40 MCHC Differential 33.3 pg (28.0-36.0) 09/20/16 04:40 RDW 18.4 % (11.5-20.0) 09/20/16 04:40 Plt Count 84 Th/cmm (150-400) L 09/20/16 04:40 MPV 9.7 fl 09/20/16 04:40 Neutrophils % 67.3 % (40.0-80.0) 09/18/16 04:14 Band Neutrophils % 4 % (0-10) 09/20/16 04:40 Lymphocytes % 14.1 % (20.0-50.0) L 09/18/16 04:14 Monocytes % 14.5 % (2.0-10.0) H 09/18/16 04:14 Eosinophils % 4.0 % (0.0-5.0) 09/18/16 04:14 Basophils % 0.1 % (0.0-2.0) 09/18/16 04:14 Neutrophils (Manual) 57 % (40-80) 09/20/16 04:40 Lymphocytes 18 % (20-50) L 09/20/16 04:40 Monocytes 9 % (2-10) 09/20/16 04:40 Eosinophils 12 % (0-5) H 09/20/16 04:40 Platelet Estimate DECREASED PLATELETS (NORMAL) 09/20/16 04:40 Platelet Morphology GIANT PLATELETS SEEN (NORMAL) 09/20/16 04:40 Polychromasia 1+ 09/10/16 05:17 Anisocytosis 1+ 09/20/16 04:40 RBC Morph Micro Appear ABNORMAL (NORMAL) 09/20/16 04:40 Eos Smear Source URINE 09/12/16 05:30 Eos Smear Total Cells NONE SEEN (NONE SEEN) 09/12/16 05:30 PT 15.0 SECONDS (9.5-11.5) H 09/18/16 08:48 INR 1.48 (0.5-1.4) H 09/18/16 08:48 PTT (Actin FS) 33.8 SECONDS (26.0-38.0) 09/18/16 08:48 Sodium 131 mEq/L (136-145) L 09/20/16 04:40 Potassium 4.0 mEq/L (3.5-5.1) 09/20/16 04:40 Chloride 104 mEq/L (98-107) 09/20/16 04:40 Carbon Dioxide 25.5 mEq/L (21.0-31.0) 09/20/16 04:40 Anion Gap 5.5 (7.0-16.0) L 09/20/16 04:40 BUN 33 mg/dL (7-25) H 09/20/16 04:40 Creatinine 2.3 mg/dL (0.7-1.3) H 09/20/16 04:40 Est GFR ( Amer) TNP 09/20/16 04:40 Est GFR (Non-Af Amer) TNP 09/20/16 04:40 BUN/Creatinine Ratio 14.3 09/20/16 04:40 Glucose 101 mg/dL (70-105) 09/20/16 04:40 Calcium 8.0 mg/dL (8.6-10.3) L 09/20/16 04:40 Phosphorus 4.5 mg/dL (2.5-5.0) 09/11/16 05:01 Magnesium 2.3 mg/dL (1.9-2.7) 09/20/16 04:40 Total Bilirubin 2.7 mg/dL (0.3-1.0) H 09/17/16 04:44 AST 51 U/L (13-39) H 09/17/16 04:44 ALT 63 U/L (7-52) H 09/17/16 04:44 Alkaline Phosphatase 113 U/L (34-104) H 09/17/16 04:44 Ammonia 74 umol/L (16-53) H 09/14/16 08:00 Troponin I 0.06 ng/mL (0.01-0.05) H D 09/11/16 09:15 B-Natriuretic Peptide 3640.0 pg/mL (5.0-100.0) H 09/19/16 04:45 Total Protein 5.5 gm/dL (6.0-8.3) L 09/17/16 04:44 Albumin 1.9 gm/dL (4.2-5.5) L 09/17/16 04:44 Globulin 3.6 gm/dL 09/17/16 04:44 Albumin/Globulin Ratio 0.5 (1.0-1.8) L 09/17/16 04:44 TSH 3.62 uIU/ml (0.34-5.60) 09/18/16 11:07 Urine Source MIDSTREAM 09/12/16 05:30 Urine Color ALEC 09/12/16 05:30 Urine Clarity CLEAR (CLEAR) 09/12/16 05:30 Urine pH 5.0 09/12/16 05:30 Ur Specific [place] 1.030 (1.005-1.030) 09/12/16 05:30 Urine Protein >300 mg/dL (NEGATIVE) H 09/12/16 05:30 Urine Glucose (UA) NEGATIVE mg/dL (NEGATIVE) 09/12/16 05:30 Urine Ketones NEGATIVE mg/dL (NEGATIVE) 09/12/16 05:30 Urine Blood TRACE (NEGATIVE) 09/12/16 05:30 Urine Nitrate NEGATIVE (NEGATIVE) 09/12/16 05:30 Urine Bilirubin SMALL (NEGATIVE) H 09/12/16 05:30 Urine Urobilinogen 1.0 E.U./dL (0.2 - 1.0) 09/12/16 05:30 Ur Leukocyte Esterase NEGATIVE (NEGATIVE) 09/12/16 05:30 Urine RBC 0-2 /hpf (0-5) H 09/12/16 05:30 Urine WBC 0-2 /hpf (0-5) 09/12/16 05:30 Ur Epithelial Cells FEW /lpf (FEW) 09/12/16 05:30 Urine Bacteria FEW /hpf (NONE SEEN) 09/12/16 05:30 Hyaline Casts 0-2 /lpf (0-2) H 09/12/16 05:30 Ur Random Sodium 10 mmol/L 09/12/16 05:30 Urine Creatinine 200.0 mg/dl (39.0-259.0) 09/12/16 05:30 RPR NONREACTIVE (NONREACTIVE) 09/09/16 17:39 Hepatitis A IgM Ab Negative (Negative) 09/17/16 12:40 Hep Bs Antigen Negative (Negative) 09/17/16 12:40 Hep B Core IgM Ab Negative (Negative) 09/17/16 12:40 Hepatitis C Antibody <0.1 s/co ratio (0.0-0.9) 09/17/16 12:40 Blood Type A POSITIVE 09/14/16 09:15 - Physical Exam Vitals and I&O: Vital Signs Temp 98.8 F 09/20/16 16:44 Pulse 77 09/20/16 17:12 Resp 20 09/20/16 16:44 BP 117/61 09/20/16 17:13 Pulse Ox 97 09/20/16 16:44 Intake & Output 09/19/16 09/20/16 09/20/16 18:59 06:59 18:59 Intake Total 800 300 Output Total 0 Balance 800 300 Intake: Intake, IV Amount 400 Azithromycin 250 mg In 250 Sodium Chloride 0.9% 250 ml @ 250 mls/hr IV Q24HR [facility] Rx#:[id number] KCL 20mEq/100mL Premix 20 100 meq In 100 ml @ 50 mls/ hr IV Q2H [facility] Rx#: [id number] cefTRIAXone 1 gm In 50 Sodium Chloride 0.9% 50 ml @ 100 mls/hr IV Q24HR [facility] Rx#:[id number] Oral 400 300 Output: Urine 0 Other: # Voids 1 # Bowel Movements 0 0 Active Medications: Current Medications Acetaminophen (Tylenol) 650 mg PO Q4HR PRN PRN Reason: Pain Stop: 11/08/16 20:54 Last Admin: 09/19/16 16:30 Dose: 650 mg Acetaminophen/Hydrocodone Bitart ([place] 5mg/325mg) 1 tab PO Q4H PRN PRN Reason: severe pain Stop: 11/18/16 12:22 Last Admin: 09/20/16 17:12 Dose: 1 tab Albuterol/Ipratropium (Duoneb Neb) 3 ml HHN Q4HRT [facility] Stop: 11/09/16 10:59 Last Admin: 09/20/16 14:48 Dose: 3 ml Ascorbic Acid (Vitamin C) 500 mg PO DAILY [facility] Stop: 11/09/16 08:59 Last Admin: 09/20/16 08:53 Dose: 500 mg Carvedilol (Coreg) 6.25 mg PO Q12H [facility] Stop: 11/08/16 20:59 Last Admin: 09/20/16 08:53 Dose: Not Given Docusate Sodium (Colace) 100 mg PO DAILY [facility] Stop: 11/09/16 08:59 Last Admin: 09/20/16 08:53 Dose: 100 mg Escitalopram Oxalate (Lexapro) 5 mg PO DAILY [facility] PRN Reason: Protocol Stop: 11/16/16 17:59 Last Admin: 09/20/16 08:52 Dose: 5 mg Furosemide (Lasix) 40 mg IVP BID [facility] Stop: 11/11/16 16:59 Last Admin: 09/20/16 17:13 Dose: 40 mg Hydralazine HCl (Apresoline) 10 mg PO BID [facility] Stop: 11/16/16 09:14 Last Admin: 09/20/16 17:12 Dose: 10 mg Sodium Chloride (Nacl 0.9%) 1,000 mls @ 10 mls/hr IV .Q24H [facility] Stop: 11/08/16 20:59 Last Infusion: 09/16/16 18:10 Dose: 10 mls/hr Azithromycin 250 mg/ Sodium (Chloride) 250 mls @ 250 mls/hr IV Q24HR [facility] Stop: 11/17/16 11:14 Last Admin: 09/20/16 13:37 Dose: 250 mls/hr Ceftriaxone Sodium 1 gm/ (Sodium Chloride) 50 mls @ 100 mls/hr IV Q24HR [facility] Stop: 11/18/16 15:14 Last Admin: 09/20/16 15:41 Dose: 100 mls/hr Isosorbide Mononitrate (Imdur) 30 mg PO DAILY [facility] Stop: 11/16/16 09:14 Last Admin: 09/20/16 08:54 Dose: Not Given Lactobacillus Rhamnosus (Culturelle) 1 each PO DAILY [facility] Stop: 11/10/16 08:59 Last Admin: 09/20/16 08:53 Dose: 1 each Lactulose (Cephulac) 30 gm PO DAILY [facility] Stop: 11/12/16 13:44 Last Admin: 09/20/16 08:53 Dose: 30 gm Lorazepam (Ativan) 1 mg IVP Q6HR PRN; Protocol PRN Reason: Agitation Stop: 11/15/16 21:26 Last Admin: 09/19/16 22:59 Dose: 1 mg Magnesium Hydroxide (Milk Of Magnesia) 30 ml PO DAILY PRN PRN Reason: Constipation Stop: 11/08/16 20:54 Last Admin: 09/12/16 11:30 Dose: 30 ml Magnesium Oxide (Mag-Oxide) 400 mg PO DAILY [facility] Stop: 11/17/16 09:59 Last Admin: 09/20/16 08:53 Dose: 400 mg Miscellaneous (Probiotic Screen) 1 ea PRN PRN PRN Reason: PROTOCOL Stop: 11/09/16 11:19 Miscellaneous (Vte Chemical Prophylaxis Screen/ Admission) 1 ea PRN PRN PRN Reason: PROTOCOL Stop: 11/09/16 17:18 Miscellaneous (Clinical Monitoring) 1 ea PRN PRN PRN Reason: RENAL DOSING Stop: 11/12/16 12:53 Promethazine HCl/Dextromethorphan (Phenergan Dm 6.25/15mg-5 Ml) 5 ml PO Q4H PRN PRN Reason: Cough Stop: 11/09/16 07:02 Last Admin: 09/11/16 08:41 Dose: 5 ml Quetiapine Fumarate (Seroquel) 12.5 mg PO HS [facility] PRN Reason: Protocol Stop: 11/14/16 20:59 Last Admin: 09/19/16 20:02 Dose: 12.5 mg Sodium Bicarbonate (Sodium Bicarbonate) 650 mg PO BID [facility] PRN Reason: Protocol Stop: 11/12/16 16:59 Last Admin: 09/20/16 17:13 Dose: 650 mg Tamsulosin HCl (Flomax) 0.4 mg PO HS [facility] Stop: 11/08/16 20:59 Last Admin: 09/19/16 20:06 Dose: 0.4 mg General: No acute distress HEENT: Atraumatic, Mucous membr. moist/pink Neck: Supple, +2 carotid pulse wo bruit Cardiovascular: Regular rate, Normal S1, Normal S2 Lungs: Other (rhonchi, rales) Abdomen: Bowel sounds, Soft Extremities: Edema (upper ext edema, (+) 3 bipedal edema) - Procedures Procedures: Procedures Procedure Code Date FLUOROSCOPY OF LEFT SUBCLAVIAN VEIN, GUIDANCE [id number] 09/09/16 GROUP PSYCHOTHERAPY 20244 07/07/15 GROUP PSYCHOTHERAPY [id number] 07/07/15 INSERT TUNNELED CV CATH 25047 09/09/16 INSERTION OF INFUSION DEV INTO L SUBCLAV VEIN, PERC APPROACH [id number] 09/09/16 OTHER GROUP THERAPY 94.44 10/17/13 ULTRASONOGRAPHY OF LEFT SUBCLAVIAN VEIN, GUIDANCE [id number] 09/09/16 Assessment/Plan - Problem List Patient Problems: All Active Problems Diabetes mellitus (Active) E11.9 Congestive heart failure (Acute) I50.9 Dementia with behavioral disturbance (Acute) F03.91 Hypothyroidism (Acute) E03.9 Mental health disorder (Acute) F99 Psychosis (Acute) F29 SEXUALLY INAPPROPRIATE BEHAVIOR (Acute) - Assessment Assessment: belia on ckd right lower lobe HAP hypokalemia elevated BNP, possible chf anemia of ckd BPH alhz dementia w/ behavioral disturbance HTN DJD peripheral edema elevated liver enzymes possibly fatty liver acute bronchospasm GB calculi, distended GB but no dilatation - Plan Plan: decrease ivf due to persistent lower ext edema continue breathing Tx f/u electrolytes cxr still w/ right lower lobe infiltrate, b/l effusions schedule for hd today still w/ peripheral edema & decomp chf discussed w/ daughter @ bedside to encourage po intake
[2016-09-20] MEDS: Magnesium Hydroxide (MOM) 30 mL UDC PO PRN (20:19)
[2016-09-21] MEDS: Albuterol/Ipratropium Neb 3 ML AERS HHN SCH ×6 (04:20→23:55)
[2016-09-21 07:27] LABS: HEMATOCRIT 38.4 % (39.0-49.0); HEMOGLOBIN 12.4 gm/dL (12.6-17.4); MEAN CELL VOLUME 81.9 fl (80-99); MEAN CORPUSCULAR HEMOGLOBIN 26.4 pg (27.0-31.0); MEAN CORPUSCULAR HGB CONC 32.3 pg (28.0-36.0); MEAN PLATELET VOLUME 9.6 fl; PLATELET COUNT 95 Th/cmm (150-400); RED BLOOD COUNT 4.68 Mil/cmm (3.80-5.80); RED CELL DISTRIBUTION WIDTH 18.8 % (11.5-20.0); WHITE BLOOD COUNT 5.2 Th/cmm (4.8-10.8)
[2016-09-21] MEDS: Multivitamin w/ Minerals Tab PO SCH (08:24)
[2016-09-21] MEDS: Escitalopram Oxalate 5 mg Tab PO SCH (08:24)
[2016-09-21] MEDS: Lactobacillus Rhamnosus 10 Billion CFU Capsule PO SCH (08:24)
[2016-09-21] MEDS: Lactulose 10 Gm/15 mL 30mL UDC PO SCH (08:25)
[2016-09-21 08:38] LABS: BAND NEUTROPHILE 3 % (0-10); EOSINOPHIL 5 % (0-5); NEUTROPHILS 55 % (40-80); PLATELET ESTIMATE DECREASED PLATELETS (NORMAL); PLATELET MORPHOLOGY NORMAL (NORMAL); TOTAL CELLS COUNTED 100
[2016-09-21 09:30] LABS: ALB/GLOB RATIO 0.5 (1.0-1.8); ALKALINE PHOSPHATASE 96 U/L (34-104); ANION GAP 10.7 (7.0-16.0); BILIRUBIN,TOTAL 2.1 mg/dL (0.3-1.0); BUN - UREA NITROGEN 29 mg/dL (7-25); BUN/CREATININE RATIO 14.5; CALCIUM SERUM 7.7 mg/dL (8.6-10.3); CHLORIDE 101 mEq/L (98-107); GLUCOSE 87 mg/dL (70-105); POTASSIUM SERUM 3.7 mEq/L (3.5-5.1); SGOT 48 U/L (13-39); SGPT/ALT 39 U/L (7-52); SODIUM SERUM 134 mEq/L (136-145)
--- NOTE | 2016-09-21 09:39 | General Progress Note ---
Subjective - Review of Systems Service Date: 09/21/16 Subjective: I want go home Objective - Results Result Diagrams: 09/21/16 06:00 09/21/16 06:00 Recent Labs: Laboratory Last Values WBC 5.2 Th/cmm (4.8-10.8) 09/21/16 06:00 RBC 4.68 Mil/cmm (3.80-5.80) 09/21/16 06:00 Hgb 12.4 gm/dL (12.6-17.4) L 09/21/16 06:00 Hct 38.4 % (39.0-49.0) L 09/21/16 06:00 MCV 81.9 fl (80-99) 09/21/16 06:00 MCH 26.4 pg (27.0-31.0) L 09/21/16 06:00 MCHC Differential 32.3 pg (28.0-36.0) 09/21/16 06:00 RDW 18.8 % (11.5-20.0) 09/21/16 06:00 Plt Count 95 Th/cmm (150-400) L 09/21/16 06:00 MPV 9.6 fl 09/21/16 06:00 Neutrophils % 67.3 % (40.0-80.0) 09/18/16 04:14 Band Neutrophils % 3 % (0-10) 09/21/16 06:00 Lymphocytes % 14.1 % (20.0-50.0) L 09/18/16 04:14 Monocytes % 14.5 % (2.0-10.0) H 09/18/16 04:14 Eosinophils % 4.0 % (0.0-5.0) 09/18/16 04:14 Basophils % 0.1 % (0.0-2.0) 09/18/16 04:14 Neutrophils (Manual) 55 % (40-80) 09/21/16 06:00 Lymphocytes 24 % (20-50) 09/21/16 06:00 Monocytes 13 % (2-10) H 09/21/16 06:00 Eosinophils 5 % (0-5) 09/21/16 06:00 Platelet Estimate DECREASED PLATELETS (NORMAL) 09/21/16 06:00 Platelet Morphology NORMAL (NORMAL) 09/21/16 06:00 Polychromasia 1+ 09/10/16 05:17 Anisocytosis 1+ 09/20/16 04:40 RBC Morph Micro Appear NORMAL (NORMAL) 09/21/16 06:00 Eos Smear Source URINE 09/12/16 05:30 Eos Smear Total Cells NONE SEEN (NONE SEEN) 09/12/16 05:30 PT 15.0 SECONDS (9.5-11.5) H 09/18/16 08:48 INR 1.48 (0.5-1.4) H 09/18/16 08:48 PTT (Actin FS) 33.8 SECONDS (26.0-38.0) 09/18/16 08:48 Sodium 134 mEq/L (136-145) L 09/21/16 06:00 Potassium 3.7 mEq/L (3.5-5.1) 09/21/16 06:00 Chloride 101 mEq/L (98-107) 09/21/16 06:00 Carbon Dioxide 26.0 mEq/L (21.0-31.0) 09/21/16 06:00 Anion Gap 10.7 (7.0-16.0) 09/21/16 06:00 BUN 29 mg/dL (7-25) H 09/21/16 06:00 Creatinine 2.0 mg/dL (0.7-1.3) H 09/21/16 06:00 Est GFR ( Amer) TNP 09/21/16 06:00 Est GFR (Non-Af Amer) TNP 09/21/16 06:00 BUN/Creatinine Ratio 14.5 09/21/16 06:00 Glucose 87 mg/dL (70-105) 09/21/16 06:00 Calcium 7.7 mg/dL (8.6-10.3) L 09/21/16 06:00 Phosphorus 4.5 mg/dL (2.5-5.0) 09/11/16 05:01 Magnesium 2.3 mg/dL (1.9-2.7) 09/20/16 04:40 Total Bilirubin 2.1 mg/dL (0.3-1.0) H 09/21/16 06:00 AST 48 U/L (13-39) H 09/21/16 06:00 ALT 39 U/L (7-52) 09/21/16 06:00 Alkaline Phosphatase 96 U/L (34-104) 09/21/16 06:00 Ammonia 74 umol/L (16-53) H 09/14/16 08:00 Troponin I 0.06 ng/mL (0.01-0.05) H D 09/11/16 09:15 B-Natriuretic Peptide 3640.0 pg/mL (5.0-100.0) H 09/19/16 04:45 Total Protein 5.9 gm/dL (6.0-8.3) L 09/21/16 06:00 Albumin 2.0 gm/dL (4.2-5.5) L 09/21/16 06:00 Globulin 3.9 gm/dL 09/21/16 06:00 Albumin/Globulin Ratio 0.5 (1.0-1.8) L 09/21/16 06:00 TSH 3.62 uIU/ml (0.34-5.60) 09/18/16 11:07 Urine Source MIDSTREAM 09/12/16 05:30 Urine Color ALEC 09/12/16 05:30 Urine Clarity CLEAR (CLEAR) 09/12/16 05:30 Urine pH 5.0 09/12/16 05:30 Ur Specific [place] 1.030 (1.005-1.030) 09/12/16 05:30 Urine Protein >300 mg/dL (NEGATIVE) H 09/12/16 05:30 Urine Glucose (UA) NEGATIVE mg/dL (NEGATIVE) 09/12/16 05:30 Urine Ketones NEGATIVE mg/dL (NEGATIVE) 09/12/16 05:30 Urine Blood TRACE (NEGATIVE) 09/12/16 05:30 Urine Nitrate NEGATIVE (NEGATIVE) 09/12/16 05:30 Urine Bilirubin SMALL (NEGATIVE) H 09/12/16 05:30 Urine Urobilinogen 1.0 E.U./dL (0.2 - 1.0) 09/12/16 05:30 Ur Leukocyte Esterase NEGATIVE (NEGATIVE) 09/12/16 05:30 Urine RBC 0-2 /hpf (0-5) H 09/12/16 05:30 Urine WBC 0-2 /hpf (0-5) 09/12/16 05:30 Ur Epithelial Cells FEW /lpf (FEW) 09/12/16 05:30 Urine Bacteria FEW /hpf (NONE SEEN) 09/12/16 05:30 Hyaline Casts 0-2 /lpf (0-2) H 09/12/16 05:30 Ur Random Sodium 10 mmol/L 09/12/16 05:30 Urine Creatinine 200.0 mg/dl (39.0-259.0) 09/12/16 05:30 RPR NONREACTIVE (NONREACTIVE) 09/09/16 17:39 Hepatitis A IgM Ab Negative (Negative) 09/17/16 12:40 Hep Bs Antigen Negative (Negative) 09/17/16 12:40 Hep B Core IgM Ab Negative (Negative) 09/17/16 12:40 Hepatitis C Antibody <0.1 s/co ratio (0.0-0.9) 09/17/16 12:40 Blood Type A POSITIVE 09/14/16 09:15 - Physical Exam Vitals and I&O: Vital Signs Temp 98.2 F 09/21/16 07:00 Pulse 71 09/21/16 08:28 Resp 18 09/21/16 07:00 BP 110/58 09/21/16 08:28 Pulse Ox 97 09/21/16 07:00 Intake & Output 09/20/16 09/21/16 09/21/16 18:59 06:59 18:59 Intake Total 1100 300 Balance 1100 300 Intake: Oral 1100 300 Other: # Voids 3 1 # Bowel Movements 0 0 Active Medications: Current Medications Acetaminophen (Tylenol) 650 mg PO Q4HR PRN PRN Reason: Pain Stop: 11/08/16 20:54 Last Admin: 09/19/16 16:30 Dose: 650 mg Acetaminophen/Hydrocodone Bitart ([place] 5mg/325mg) 1 tab PO Q4H PRN PRN Reason: severe pain Stop: 11/18/16 12:22 Last Admin: 09/20/16 17:12 Dose: 1 tab Albuterol/Ipratropium (Duoneb Neb) 3 ml HHN Q4HRT GOOD Stop: 11/09/16 10:59 Last Admin: 09/21/16 06:36 Dose: 3 ml Ascorbic Acid (Vitamin C) 500 mg PO DAILY GOOD Stop: 11/09/16 08:59 Last Admin: 09/21/16 08:24 Dose: 500 mg Carvedilol (Coreg) 6.25 mg PO Q12H GOOD Stop: 11/08/16 20:59 Last Admin: 09/21/16 08:28 Dose: 6.25 mg Docusate Sodium (Colace) 100 mg PO DAILY GOOD Stop: 11/09/16 08:59 Last Admin: 09/21/16 08:24 Dose: 100 mg Escitalopram Oxalate (Lexapro) 5 mg PO DAILY GOOD PRN Reason: Protocol Stop: 11/16/16 17:59 Last Admin: 09/21/16 08:24 Dose: 5 mg Furosemide (Lasix) 40 mg IVP BID GOOD Stop: 11/11/16 16:59 Last Admin: 09/21/16 08:25 Dose: 40 mg Hydralazine HCl (Apresoline) 10 mg PO BID GOOD Stop: 11/16/16 09:14 Last Admin: 09/21/16 08:27 Dose: Not Given Sodium Chloride (Nacl 0.9%) 1,000 mls @ 10 mls/hr IV .Q24H GOOD Stop: 11/08/16 20:59 Last Infusion: 09/16/16 18:10 Dose: 10 mls/hr Azithromycin 250 mg/ Sodium (Chloride) 250 mls @ 250 mls/hr IV Q24HR GOOD Stop: 11/17/16 11:14 Last Admin: 09/20/16 13:37 Dose: 250 mls/hr Ceftriaxone Sodium 1 gm/ (Sodium Chloride) 50 mls @ 100 mls/hr IV Q24HR GOOD Stop: 11/18/16 15:14 Last Admin: 09/20/16 15:41 Dose: 100 mls/hr Isosorbide Mononitrate (Imdur) 30 mg PO DAILY GOOD Stop: 11/16/16 09:14 Last Admin: 09/21/16 08:27 Dose: Not Given Lactobacillus Rhamnosus (Culturelle) 1 each PO DAILY GOOD Stop: 11/10/16 08:59 Last Admin: 09/21/16 08:24 Dose: 1 each Lactulose (Cephulac) 30 gm PO DAILY GOOD Stop: 11/12/16 13:44 Last Admin: 09/21/16 08:25 Dose: 30 gm Lorazepam (Ativan) 1 mg IVP Q6HR PRN; Protocol PRN Reason: Agitation Stop: 11/15/16 21:26 Last Admin: 09/20/16 20:18 Dose: 1 mg Magnesium Hydroxide (Milk Of Magnesia) 30 ml PO DAILY PRN PRN Reason: Constipation Stop: 11/08/16 20:54 Last Admin: 09/20/16 20:19 Dose: 30 ml Magnesium Oxide (Mag-Oxide) 400 mg PO DAILY GOOD Stop: 11/17/16 09:59 Last Admin: 09/21/16 08:24 Dose: 400 mg Miscellaneous (Probiotic Screen) 1 ea PRN PRN PRN Reason: PROTOCOL Stop: 11/09/16 11:19 Miscellaneous (Vte Chemical Prophylaxis Screen/ Admission) 1 ea PRN PRN PRN Reason: PROTOCOL Stop: 11/09/16 17:18 Miscellaneous (Clinical Monitoring) 1 ea PRN PRN PRN Reason: RENAL DOSING Stop: 11/12/16 12:53 Promethazine HCl/Dextromethorphan (Phenergan Dm 6.25/15mg-5 Ml) 5 ml PO Q4H PRN PRN Reason: Cough Stop: 11/09/16 07:02 Last Admin: 09/11/16 08:41 Dose: 5 ml Quetiapine Fumarate (Seroquel) 12.5 mg PO HS GOOD PRN Reason: Protocol Stop: 11/14/16 20:59 Last Admin: 09/20/16 20:20 Dose: 12.5 mg Sodium Bicarbonate (Sodium Bicarbonate) 650 mg PO BID GOOD PRN Reason: Protocol Stop: 11/12/16 16:59 Last Admin: 09/21/16 08:24 Dose: 650 mg Tamsulosin HCl (Flomax) 0.4 mg PO HS [facility] Stop: 11/08/16 20:59 Last Admin: 09/20/16 20:20 Dose: 0.4 mg General: Alert, Other (Confused) HEENT: Atraumatic Neck: Supple Cardiovascular: Regular rate Lungs: Clear to auscultation Abdomen: Bowel sounds, Soft Extremities: Other (edema 1+) Neurological: Other (Non ambulatory) Skin: Other (Warm and dry) Psych/Mental Status: Other (Confused) - Procedures Procedures: Procedures Procedure Code Date FLUOROSCOPY OF LEFT SUBCLAVIAN VEIN, GUIDANCE [id number] 09/09/16 GROUP PSYCHOTHERAPY 20957 07/07/15 GROUP PSYCHOTHERAPY [id number] 07/07/15 INSERT TUNNELED CV CATH 36002 09/09/16 INSERTION OF INFUSION DEV INTO L SUBCLAV VEIN, PERC APPROACH [id number] 09/09/16 OTHER GROUP THERAPY 94.44 10/17/13 ULTRASONOGRAPHY OF LEFT SUBCLAVIAN VEIN, GUIDANCE [id number] 09/09/16 Assessment/Plan - Problem List Patient Problems: All Active Problems Diabetes mellitus (Active) E11.9 Congestive heart failure (Acute) I50.9 Dementia with behavioral disturbance (Acute) F03.91 Hypothyroidism (Acute) E03.9 Mental health disorder (Acute) F99 Psychosis (Acute) F29 SEXUALLY INAPPROPRIATE BEHAVIOR (Acute) - Assessment Assessment: Patient is confused. Creatinine improving, BNP high but satable. case discussed with family and explain them the poor prognosis. Family decided to sing DNR. - Plan Plan: Waiting [facility] hosp transfer.
[2016-09-21] MEDS: Azithromycin 250 MG in Sodium Chloride 0.9% 250 ML IV SCH (10:56)
--- NOTE | 2016-09-21 12:23 | General Progress Note ---
Subjective - Review of Systems Service Date: 09/21/16 Subjective: more responsive, calmer today, daughters @ bedside Objective - Results Result Diagrams: 09/21/16 06:00 09/21/16 06:00 Recent Labs: Laboratory Last Values WBC 5.2 Th/cmm (4.8-10.8) 09/21/16 06:00 RBC 4.68 Mil/cmm (3.80-5.80) 09/21/16 06:00 Hgb 12.4 gm/dL (12.6-17.4) L 09/21/16 06:00 Hct 38.4 % (39.0-49.0) L 09/21/16 06:00 MCV 81.9 fl (80-99) 09/21/16 06:00 MCH 26.4 pg (27.0-31.0) L 09/21/16 06:00 MCHC Differential 32.3 pg (28.0-36.0) 09/21/16 06:00 RDW 18.8 % (11.5-20.0) 09/21/16 06:00 Plt Count 95 Th/cmm (150-400) L 09/21/16 06:00 MPV 9.6 fl 09/21/16 06:00 Neutrophils % 67.3 % (40.0-80.0) 09/18/16 04:14 Band Neutrophils % 3 % (0-10) 09/21/16 06:00 Lymphocytes % 14.1 % (20.0-50.0) L 09/18/16 04:14 Monocytes % 14.5 % (2.0-10.0) H 09/18/16 04:14 Eosinophils % 4.0 % (0.0-5.0) 09/18/16 04:14 Basophils % 0.1 % (0.0-2.0) 09/18/16 04:14 Neutrophils (Manual) 55 % (40-80) 09/21/16 06:00 Lymphocytes 24 % (20-50) 09/21/16 06:00 Monocytes 13 % (2-10) H 09/21/16 06:00 Eosinophils 5 % (0-5) 09/21/16 06:00 Platelet Estimate DECREASED PLATELETS (NORMAL) 09/21/16 06:00 Platelet Morphology NORMAL (NORMAL) 09/21/16 06:00 Polychromasia 1+ 09/10/16 05:17 Anisocytosis 1+ 09/20/16 04:40 RBC Morph Micro Appear NORMAL (NORMAL) 09/21/16 06:00 Eos Smear Source URINE 09/12/16 05:30 Eos Smear Total Cells NONE SEEN (NONE SEEN) 09/12/16 05:30 PT 15.0 SECONDS (9.5-11.5) H 09/18/16 08:48 INR 1.48 (0.5-1.4) H 09/18/16 08:48 PTT (Actin FS) 33.8 SECONDS (26.0-38.0) 09/18/16 08:48 Sodium 134 mEq/L (136-145) L 09/21/16 06:00 Potassium 3.7 mEq/L (3.5-5.1) 09/21/16 06:00 Chloride 101 mEq/L (98-107) 09/21/16 06:00 Carbon Dioxide 26.0 mEq/L (21.0-31.0) 09/21/16 06:00 Anion Gap 10.7 (7.0-16.0) 09/21/16 06:00 BUN 29 mg/dL (7-25) H 09/21/16 06:00 Creatinine 2.0 mg/dL (0.7-1.3) H 09/21/16 06:00 Est GFR ( Amer) TNP 09/21/16 06:00 Est GFR (Non-Af Amer) TNP 09/21/16 06:00 BUN/Creatinine Ratio 14.5 09/21/16 06:00 Glucose 87 mg/dL (70-105) 09/21/16 06:00 Calcium 7.7 mg/dL (8.6-10.3) L 09/21/16 06:00 Phosphorus 4.5 mg/dL (2.5-5.0) 09/11/16 05:01 Magnesium 2.3 mg/dL (1.9-2.7) 09/20/16 04:40 Total Bilirubin 2.1 mg/dL (0.3-1.0) H 09/21/16 06:00 AST 48 U/L (13-39) H 09/21/16 06:00 ALT 39 U/L (7-52) 09/21/16 06:00 Alkaline Phosphatase 96 U/L (34-104) 09/21/16 06:00 Ammonia 74 umol/L (16-53) H 09/14/16 08:00 Troponin I 0.06 ng/mL (0.01-0.05) H D 09/11/16 09:15 B-Natriuretic Peptide 3640.0 pg/mL (5.0-100.0) H 09/19/16 04:45 Total Protein 5.9 gm/dL (6.0-8.3) L 09/21/16 06:00 Albumin 2.0 gm/dL (4.2-5.5) L 09/21/16 06:00 Globulin 3.9 gm/dL 09/21/16 06:00 Albumin/Globulin Ratio 0.5 (1.0-1.8) L 09/21/16 06:00 TSH 3.62 uIU/ml (0.34-5.60) 09/18/16 11:07 Urine Source MIDSTREAM 09/12/16 05:30 Urine Color ALEC 09/12/16 05:30 Urine Clarity CLEAR (CLEAR) 09/12/16 05:30 Urine pH 5.0 09/12/16 05:30 Ur Specific [place] 1.030 (1.005-1.030) 09/12/16 05:30 Urine Protein >300 mg/dL (NEGATIVE) H 09/12/16 05:30 Urine Glucose (UA) NEGATIVE mg/dL (NEGATIVE) 09/12/16 05:30 Urine Ketones NEGATIVE mg/dL (NEGATIVE) 09/12/16 05:30 Urine Blood TRACE (NEGATIVE) 09/12/16 05:30 Urine Nitrate NEGATIVE (NEGATIVE) 09/12/16 05:30 Urine Bilirubin SMALL (NEGATIVE) H 09/12/16 05:30 Urine Urobilinogen 1.0 E.U./dL (0.2 - 1.0) 09/12/16 05:30 Ur Leukocyte Esterase NEGATIVE (NEGATIVE) 09/12/16 05:30 Urine RBC 0-2 /hpf (0-5) H 09/12/16 05:30 Urine WBC 0-2 /hpf (0-5) 09/12/16 05:30 Ur Epithelial Cells FEW /lpf (FEW) 09/12/16 05:30 Urine Bacteria FEW /hpf (NONE SEEN) 09/12/16 05:30 Hyaline Casts 0-2 /lpf (0-2) H 09/12/16 05:30 Ur Random Sodium 10 mmol/L 09/12/16 05:30 Urine Creatinine 200.0 mg/dl (39.0-259.0) 09/12/16 05:30 RPR NONREACTIVE (NONREACTIVE) 09/09/16 17:39 Hepatitis A IgM Ab Negative (Negative) 09/17/16 12:40 Hep Bs Antigen Negative (Negative) 09/17/16 12:40 Hep B Core IgM Ab Negative (Negative) 09/17/16 12:40 Hepatitis C Antibody <0.1 s/co ratio (0.0-0.9) 09/17/16 12:40 Blood Type A POSITIVE 09/14/16 09:15 - Physical Exam Vitals and I&O: Vital Signs Temp 98.2 F 09/21/16 07:00 Pulse 79 09/21/16 11:10 Resp 18 09/21/16 11:10 BP 110/58 09/21/16 08:28 Pulse Ox 97 09/21/16 11:10 Intake & Output 09/20/16 09/21/16 09/21/16 18:59 06:59 18:59 Intake Total 1350 300 Balance 1350 300 Intake: Intake, IV Amount 250 Azithromycin 250 mg In 250 Sodium Chloride 0.9% 250 ml @ 250 mls/hr IV Q24HR [facility] Rx#:[id number] Oral 1100 300 Other: # Voids 3 1 # Bowel Movements 0 0 Active Medications: Current Medications Acetaminophen (Tylenol) 650 mg PO Q4HR PRN PRN Reason: Pain Stop: 11/08/16 20:54 Last Admin: 09/19/16 16:30 Dose: 650 mg Acetaminophen/Hydrocodone Bitart ([place] 5mg/325mg) 1 tab PO Q4H PRN PRN Reason: severe pain Stop: 11/18/16 12:22 Last Admin: 09/20/16 17:12 Dose: 1 tab Albuterol/Ipratropium (Duoneb Neb) 3 ml HHN Q4HRT [facility] Stop: 11/09/16 10:59 Last Admin: 09/21/16 11:10 Dose: 3 ml Ascorbic Acid (Vitamin C) 500 mg PO DAILY [facility] Stop: 11/09/16 08:59 Last Admin: 09/21/16 08:24 Dose: 500 mg Carvedilol (Coreg) 6.25 mg PO Q12H GOOD Stop: 11/08/16 20:59 Last Admin: 09/21/16 08:28 Dose: 6.25 mg Docusate Sodium (Colace) 100 mg PO DAILY GOOD Stop: 11/09/16 08:59 Last Admin: 09/21/16 08:24 Dose: 100 mg Escitalopram Oxalate (Lexapro) 5 mg PO DAILY GOOD PRN Reason: Protocol Stop: 11/16/16 17:59 Last Admin: 09/21/16 08:24 Dose: 5 mg Furosemide (Lasix) 40 mg IVP BID GOOD Stop: 11/11/16 16:59 Last Admin: 09/21/16 08:25 Dose: 40 mg Hydralazine HCl (Apresoline) 10 mg PO BID GOOD Stop: 11/16/16 09:14 Last Admin: 09/21/16 08:27 Dose: Not Given Sodium Chloride (Nacl 0.9%) 1,000 mls @ 10 mls/hr IV .Q24H [facility] Stop: 11/08/16 20:59 Last Infusion: 09/16/16 18:10 Dose: 10 mls/hr Azithromycin 250 mg/ Sodium (Chloride) 250 mls @ 250 mls/hr IV Q24HR [facility] Stop: 11/17/16 11:14 Last Admin: 09/21/16 10:56 Dose: 250 mls/hr Ceftriaxone Sodium 1 gm/ (Sodium Chloride) 50 mls @ 100 mls/hr IV Q24HR [facility] Stop: 11/18/16 15:14 Last Admin: 09/20/16 15:41 Dose: 100 mls/hr Isosorbide Mononitrate (Imdur) 30 mg PO DAILY GOOD Stop: 11/16/16 09:14 Last Admin: 09/21/16 08:27 Dose: Not Given Lactobacillus Rhamnosus (Culturelle) 1 each PO DAILY GOOD Stop: 11/10/16 08:59 Last Admin: 09/21/16 08:24 Dose: 1 each Lactulose (Cephulac) 30 gm PO DAILY GOOD Stop: 11/12/16 13:44 Last Admin: 09/21/16 08:25 Dose: 30 gm Lorazepam (Ativan) 1 mg IVP Q6HR PRN; Protocol PRN Reason: Agitation Stop: 11/15/16 21:26 Last Admin: 09/20/16 20:18 Dose: 1 mg Magnesium Hydroxide (Milk Of Magnesia) 30 ml PO DAILY PRN PRN Reason: Constipation Stop: 11/08/16 20:54 Last Admin: 09/20/16 20:19 Dose: 30 ml Magnesium Oxide (Mag-Oxide) 400 mg PO DAILY GOOD Stop: 11/17/16 09:59 Last Admin: 09/21/16 08:24 Dose: 400 mg Miscellaneous (Probiotic Screen) 1 ea PRN PRN PRN Reason: PROTOCOL Stop: 11/09/16 11:19 Miscellaneous (Vte Chemical Prophylaxis Screen/ Admission) 1 ea PRN PRN PRN Reason: PROTOCOL Stop: 11/09/16 17:18 Miscellaneous (Clinical Monitoring) 1 ea PRN PRN PRN Reason: RENAL DOSING Stop: 11/12/16 12:53 Promethazine HCl/Dextromethorphan (Phenergan Dm 6.25/15mg-5 Ml) 5 ml PO Q4H PRN PRN Reason: Cough Stop: 11/09/16 07:02 Last Admin: 09/11/16 08:41 Dose: 5 ml Quetiapine Fumarate (Seroquel) 12.5 mg PO HS GOOD PRN Reason: Protocol Stop: 11/14/16 20:59 Last Admin: 09/20/16 20:20 Dose: 12.5 mg Sodium Bicarbonate (Sodium Bicarbonate) 650 mg PO BID GOOD PRN Reason: Protocol Stop: 11/12/16 16:59 Last Admin: 09/21/16 08:24 Dose: 650 mg Tamsulosin HCl (Flomax) 0.4 mg PO HS GOOD Stop: 11/08/16 20:59 Last Admin: 09/20/16 20:20 Dose: 0.4 mg General: No acute distress HEENT: Atraumatic, EOMI, Mucous membr. moist/pink Neck: Supple, +2 carotid pulse wo bruit Cardiovascular: Regular rate, Normal S1, Normal S2 Lungs: Other (rhonchi) Abdomen: Bowel sounds, Soft Extremities: Edema, Other ((+) 3 bipedal edema) Neurological: Sensation intact Skin: no Rash - Procedures Procedures: Procedures Procedure Code Date FLUOROSCOPY OF LEFT SUBCLAVIAN VEIN, GUIDANCE [id number] 09/09/16 GROUP PSYCHOTHERAPY 59700 07/07/15 GROUP PSYCHOTHERAPY [id number] 07/07/15 INSERT TUNNELED CV CATH 23569 09/09/16 INSERTION OF INFUSION DEV INTO L SUBCLAV VEIN, PERC APPROACH [id number] 09/09/16 OTHER GROUP THERAPY 94.44 10/17/13 ULTRASONOGRAPHY OF LEFT SUBCLAVIAN VEIN, GUIDANCE [id number] 09/09/16 Assessment/Plan - Problem List Patient Problems: All Active Problems Diabetes mellitus (Active) E11.9 Congestive heart failure (Acute) I50.9 Dementia with behavioral disturbance (Acute) F03.91 Hypothyroidism (Acute) E03.9 Mental health disorder (Acute) F99 Psychosis (Acute) F29 SEXUALLY INAPPROPRIATE BEHAVIOR (Acute) - Assessment Assessment: belia on ckd right lower lobe HAP hypokalemia elevated BNP, possible chf anemia of ckd BPH alhz dementia w/ behavioral disturbance HTN DJD peripheral edema elevated liver enzymes possibly fatty liver acute bronchospasm GB calculi, distended GB but no dilatation - Plan Plan: decrease ivf due to persistent lower ext edema continue breathing Tx f/u electrolytes cxr still shows chf schedule for hd in am, still w/ peripheral edema & decomp chf discussed w/ daughters @ bedside to encourage po intake
[2016-09-21] MEDS: Hydrocodone/APAP 5mg/325mg Tab PO PRN (13:49)
[2016-09-21] MEDS: cefTRIAXone 1 GM in 0.9% NS 50 ML IV SCH (15:07)
[2016-09-21] MEDS ORDERED: Escitalopram Oxalate 5 mg Tab PO SCH (21:00)
[2016-09-22] MEDS: Albuterol/Ipratropium Neb 3 ML AERS HHN SCH ×5 (06:10→19:06)
[2016-09-22] MEDS: Lactulose 10 Gm/15 mL 30mL UDC PO SCH (08:29)
[2016-09-22] MEDS: Lactobacillus Rhamnosus 10 Billion CFU Capsule PO SCH (08:29)
[2016-09-22] MEDS: Multivitamin w/ Minerals Tab PO SCH (08:29)
--- NOTE | 2016-09-22 09:15 | General Progress Note ---
Subjective - Review of Systems Service Date: 09/22/16 Subjective: I want go home Objective - Results Result Diagrams: 09/21/16 06:00 09/21/16 06:00 Recent Labs: Laboratory Last Values WBC 5.2 Th/cmm (4.8-10.8) 09/21/16 06:00 RBC 4.68 Mil/cmm (3.80-5.80) 09/21/16 06:00 Hgb 12.4 gm/dL (12.6-17.4) L 09/21/16 06:00 Hct 38.4 % (39.0-49.0) L 09/21/16 06:00 MCV 81.9 fl (80-99) 09/21/16 06:00 MCH 26.4 pg (27.0-31.0) L 09/21/16 06:00 MCHC Differential 32.3 pg (28.0-36.0) 09/21/16 06:00 RDW 18.8 % (11.5-20.0) 09/21/16 06:00 Plt Count 95 Th/cmm (150-400) L 09/21/16 06:00 MPV 9.6 fl 09/21/16 06:00 Neutrophils % 67.3 % (40.0-80.0) 09/18/16 04:14 Band Neutrophils % 3 % (0-10) 09/21/16 06:00 Lymphocytes % 14.1 % (20.0-50.0) L 09/18/16 04:14 Monocytes % 14.5 % (2.0-10.0) H 09/18/16 04:14 Eosinophils % 4.0 % (0.0-5.0) 09/18/16 04:14 Basophils % 0.1 % (0.0-2.0) 09/18/16 04:14 Neutrophils (Manual) 55 % (40-80) 09/21/16 06:00 Lymphocytes 24 % (20-50) 09/21/16 06:00 Monocytes 13 % (2-10) H 09/21/16 06:00 Eosinophils 5 % (0-5) 09/21/16 06:00 Platelet Estimate DECREASED PLATELETS (NORMAL) 09/21/16 06:00 Platelet Morphology NORMAL (NORMAL) 09/21/16 06:00 Polychromasia 1+ 09/10/16 05:17 Anisocytosis 1+ 09/20/16 04:40 RBC Morph Micro Appear NORMAL (NORMAL) 09/21/16 06:00 Eos Smear Source URINE 09/12/16 05:30 Eos Smear Total Cells NONE SEEN (NONE SEEN) 09/12/16 05:30 PT 15.0 SECONDS (9.5-11.5) H 09/18/16 08:48 INR 1.48 (0.5-1.4) H 09/18/16 08:48 PTT (Actin FS) 33.8 SECONDS (26.0-38.0) 09/18/16 08:48 Sodium 134 mEq/L (136-145) L 09/21/16 06:00 Potassium 3.7 mEq/L (3.5-5.1) 09/21/16 06:00 Chloride 101 mEq/L (98-107) 09/21/16 06:00 Carbon Dioxide 26.0 mEq/L (21.0-31.0) 09/21/16 06:00 Anion Gap 10.7 (7.0-16.0) 09/21/16 06:00 BUN 29 mg/dL (7-25) H 09/21/16 06:00 Creatinine 2.0 mg/dL (0.7-1.3) H 09/21/16 06:00 Est GFR ( Amer) TNP 09/21/16 06:00 Est GFR (Non-Af Amer) TNP 09/21/16 06:00 BUN/Creatinine Ratio 14.5 09/21/16 06:00 Glucose 87 mg/dL (70-105) 09/21/16 06:00 Calcium 7.7 mg/dL (8.6-10.3) L 09/21/16 06:00 Phosphorus 4.5 mg/dL (2.5-5.0) 09/11/16 05:01 Magnesium 2.3 mg/dL (1.9-2.7) 09/20/16 04:40 Total Bilirubin 2.1 mg/dL (0.3-1.0) H 09/21/16 06:00 AST 48 U/L (13-39) H 09/21/16 06:00 ALT 39 U/L (7-52) 09/21/16 06:00 Alkaline Phosphatase 96 U/L (34-104) 09/21/16 06:00 Ammonia 74 umol/L (16-53) H 09/14/16 08:00 Troponin I 0.06 ng/mL (0.01-0.05) H D 09/11/16 09:15 B-Natriuretic Peptide 3640.0 pg/mL (5.0-100.0) H 09/19/16 04:45 Total Protein 5.9 gm/dL (6.0-8.3) L 09/21/16 06:00 Albumin 2.0 gm/dL (4.2-5.5) L 09/21/16 06:00 Globulin 3.9 gm/dL 09/21/16 06:00 Albumin/Globulin Ratio 0.5 (1.0-1.8) L 09/21/16 06:00 TSH 3.62 uIU/ml (0.34-5.60) 09/18/16 11:07 Urine Source MIDSTREAM 09/12/16 05:30 Urine Color ALEC 09/12/16 05:30 Urine Clarity CLEAR (CLEAR) 09/12/16 05:30 Urine pH 5.0 09/12/16 05:30 Ur Specific [place] 1.030 (1.005-1.030) 09/12/16 05:30 Urine Protein >300 mg/dL (NEGATIVE) H 09/12/16 05:30 Urine Glucose (UA) NEGATIVE mg/dL (NEGATIVE) 09/12/16 05:30 Urine Ketones NEGATIVE mg/dL (NEGATIVE) 09/12/16 05:30 Urine Blood TRACE (NEGATIVE) 09/12/16 05:30 Urine Nitrate NEGATIVE (NEGATIVE) 09/12/16 05:30 Urine Bilirubin SMALL (NEGATIVE) H 09/12/16 05:30 Urine Urobilinogen 1.0 E.U./dL (0.2 - 1.0) 09/12/16 05:30 Ur Leukocyte Esterase NEGATIVE (NEGATIVE) 09/12/16 05:30 Urine RBC 0-2 /hpf (0-5) H 09/12/16 05:30 Urine WBC 0-2 /hpf (0-5) 09/12/16 05:30 Ur Epithelial Cells FEW /lpf (FEW) 09/12/16 05:30 Urine Bacteria FEW /hpf (NONE SEEN) 09/12/16 05:30 Hyaline Casts 0-2 /lpf (0-2) H 09/12/16 05:30 Ur Random Sodium 10 mmol/L 09/12/16 05:30 Urine Creatinine 200.0 mg/dl (39.0-259.0) 09/12/16 05:30 RPR NONREACTIVE (NONREACTIVE) 09/09/16 17:39 Hepatitis A IgM Ab Negative (Negative) 09/17/16 12:40 Hep Bs Antigen Negative (Negative) 09/17/16 12:40 Hep B Core IgM Ab Negative (Negative) 09/17/16 12:40 Hepatitis C Antibody <0.1 s/co ratio (0.0-0.9) 09/17/16 12:40 Blood Type A POSITIVE 09/14/16 09:15 - Physical Exam Vitals and I&O: Vital Signs Temp 97.1 F 09/22/16 04:00 Pulse 70 09/22/16 07:59 Resp 18 09/22/16 08:23 BP 109/60 09/22/16 08:30 Pulse Ox 98 09/22/16 07:59 Intake & Output 09/21/16 09/22/16 09/22/16 18:59 06:59 18:59 Intake Total 750 250 Balance 750 250 Intake: Intake, IV Amount 300 Azithromycin 250 mg In 250 Sodium Chloride 0.9% 250 ml @ 250 mls/hr IV Q24HR [facility] Rx#:[id number] cefTRIAXone 1 gm In 50 Sodium Chloride 0.9% 50 ml @ 100 mls/hr IV Q24HR [facility] Rx#:[id number] Oral 450 250 Other: # Voids 2 1 # Bowel Movements 0 0 Active Medications: Current Medications Acetaminophen (Tylenol) 650 mg PO Q4HR PRN PRN Reason: Pain Stop: 11/08/16 20:54 Last Admin: 09/19/16 16:30 Dose: 650 mg Acetaminophen/Hydrocodone Bitart ([place] 5mg/325mg) 1 tab PO Q4H PRN PRN Reason: severe pain Stop: 11/18/16 12:22 Last Admin: 09/21/16 13:49 Dose: 1 tab Albuterol/Ipratropium (Duoneb Neb) 3 ml HHN Q4HRT GOOD Stop: 11/09/16 10:59 Last Admin: 09/22/16 07:58 Dose: 3 ml Ascorbic Acid (Vitamin C) 500 mg PO DAILY GOOD Stop: 11/09/16 08:59 Last Admin: 09/22/16 08:28 Dose: 500 mg Carvedilol (Coreg) 6.25 mg PO Q12H GOOD Stop: 11/08/16 20:59 Last Admin: 09/22/16 08:31 Dose: Not Given Docusate Sodium (Colace) 100 mg PO DAILY GOOD Stop: 11/09/16 08:59 Last Admin: 09/22/16 08:28 Dose: 100 mg Furosemide (Lasix) 40 mg IVP BID GOOD Stop: 11/11/16 16:59 Last Admin: 09/22/16 08:30 Dose: 40 mg Hydralazine HCl (Apresoline) 10 mg PO BID GOOD Stop: 11/16/16 09:14 Last Admin: 09/22/16 08:30 Dose: Not Given Sodium Chloride (Nacl 0.9%) 1,000 mls @ 10 mls/hr IV .Q24H GOOD Stop: 11/08/16 20:59 Last Infusion: 09/16/16 18:10 Dose: 10 mls/hr Azithromycin 250 mg/ Sodium (Chloride) 250 mls @ 250 mls/hr IV Q24HR GOOD Stop: 11/17/16 11:14 Last Infusion: 09/21/16 12:00 Dose: Infused Ceftriaxone Sodium 1 gm/ (Sodium Chloride) 50 mls @ 100 mls/hr IV Q24HR GOOD Stop: 11/18/16 15:14 Last Infusion: 09/21/16 15:40 Dose: Infused Isosorbide Mononitrate (Imdur) 30 mg PO DAILY GOOD Stop: 11/16/16 09:14 Last Admin: 09/22/16 08:30 Dose: Not Given Lactobacillus Rhamnosus (Culturelle) 1 each PO DAILY GOOD Stop: 11/10/16 08:59 Last Admin: 09/22/16 08:29 Dose: 1 each Lactulose (Cephulac) 30 gm PO DAILY GOOD Stop: 11/12/16 13:44 Last Admin: 09/22/16 08:29 Dose: 30 gm Lorazepam (Ativan) 0.5 mg IVP Q6HR PRN; Protocol PRN Reason: Agitation Stop: 11/15/16 21:26 Last Admin: 09/21/16 20:20 Dose: 0.5 mg Magnesium Hydroxide (Milk Of Magnesia) 30 ml PO DAILY PRN PRN Reason: Constipation Stop: 11/08/16 20:54 Last Admin: 09/20/16 20:19 Dose: 30 ml Magnesium Oxide (Mag-Oxide) 400 mg PO DAILY GOOD Stop: 11/17/16 09:59 Last Admin: 09/22/16 08:28 Dose: 400 mg Miscellaneous (Probiotic Screen) 1 ea PRN PRN PRN Reason: PROTOCOL Stop: 11/09/16 11:19 Miscellaneous (Vte Chemical Prophylaxis Screen/ Admission) 1 ea PRN PRN PRN Reason: PROTOCOL Stop: 11/09/16 17:18 Miscellaneous (Clinical Monitoring) 1 ea PRN PRN PRN Reason: RENAL DOSING Stop: 11/12/16 12:53 Ondansetron HCl (Zofran) 4 mg IV Q8H PRN PRN Reason: Nausea / Vomiting Stop: 11/20/16 14:39 Promethazine HCl/Dextromethorphan (Phenergan Dm 6.25/15mg-5 Ml) 5 ml PO Q4H PRN PRN Reason: Cough Stop: 11/09/16 07:02 Last Admin: 09/11/16 08:41 Dose: 5 ml Quetiapine Fumarate (Seroquel) 12.5 mg PO HS GOOD PRN Reason: Protocol Stop: 11/14/16 20:59 Last Admin: 09/21/16 20:19 Dose: 12.5 mg Sodium Bicarbonate (Sodium Bicarbonate) 650 mg PO BID GOOD PRN Reason: Protocol Stop: 11/12/16 16:59 Last Admin: 09/22/16 08:29 Dose: 650 mg Tamsulosin HCl (Flomax) 0.4 mg PO HS GOOD Stop: 11/08/16 20:59 Last Admin: 09/21/16 20:19 Dose: 0.4 mg General: Alert, Other (Confused) HEENT: Atraumatic Neck: Supple Cardiovascular: Regular rate Lungs: Other (Rude respiration, some secretions) Abdomen: Bowel sounds, Soft Extremities: Other (Edema 1+) Neurological: Other (Non ambulatory) Skin: Other Psych/Mental Status: Other (Confused) - Procedures Procedures: Procedures Procedure Code Date FLUOROSCOPY OF LEFT SUBCLAVIAN VEIN, GUIDANCE [id number] 09/09/16 GROUP PSYCHOTHERAPY 80871 07/07/15 GROUP PSYCHOTHERAPY [id number] 07/07/15 INSERT TUNNELED CV CATH 68527 09/09/16 INSERTION OF INFUSION DEV INTO L SUBCLAV VEIN, PERC APPROACH [id number] 09/09/16 OTHER GROUP THERAPY 94.44 10/17/13 ULTRASONOGRAPHY OF LEFT SUBCLAVIAN VEIN, GUIDANCE [id number] 09/09/16 Assessment/Plan - Problem List Patient Problems: All Active Problems Diabetes mellitus (Active) E11.9 Congestive heart failure (Acute) I50.9 Dementia with behavioral disturbance (Acute) F03.91 Hypothyroidism (Acute) E03.9 Mental health disorder (Acute) F99 Psychosis (Acute) F29 SEXUALLY INAPPROPRIATE BEHAVIOR (Acute) - Assessment Assessment: Patient is confused. Creatinine improving, BNP high but satable. case discussed with family and explain them the poor prognosis. Family decided to sing DNR. - Plan Plan: Awaiting bed to [facility] transfer.
--- NOTE | 2016-09-22 13:04 | General Progress Note ---
Subjective - Review of Systems Service Date: 09/22/16 Subjective: more responsive, calmer today, daughters @ bedside Objective - Results Result Diagrams: 09/21/16 06:00 09/21/16 06:00 Recent Labs: Laboratory Last Values WBC 5.2 Th/cmm (4.8-10.8) 09/21/16 06:00 RBC 4.68 Mil/cmm (3.80-5.80) 09/21/16 06:00 Hgb 12.4 gm/dL (12.6-17.4) L 09/21/16 06:00 Hct 38.4 % (39.0-49.0) L 09/21/16 06:00 MCV 81.9 fl (80-99) 09/21/16 06:00 MCH 26.4 pg (27.0-31.0) L 09/21/16 06:00 MCHC Differential 32.3 pg (28.0-36.0) 09/21/16 06:00 RDW 18.8 % (11.5-20.0) 09/21/16 06:00 Plt Count 95 Th/cmm (150-400) L 09/21/16 06:00 MPV 9.6 fl 09/21/16 06:00 Neutrophils % 67.3 % (40.0-80.0) 09/18/16 04:14 Band Neutrophils % 3 % (0-10) 09/21/16 06:00 Lymphocytes % 14.1 % (20.0-50.0) L 09/18/16 04:14 Monocytes % 14.5 % (2.0-10.0) H 09/18/16 04:14 Eosinophils % 4.0 % (0.0-5.0) 09/18/16 04:14 Basophils % 0.1 % (0.0-2.0) 09/18/16 04:14 Neutrophils (Manual) 55 % (40-80) 09/21/16 06:00 Lymphocytes 24 % (20-50) 09/21/16 06:00 Monocytes 13 % (2-10) H 09/21/16 06:00 Eosinophils 5 % (0-5) 09/21/16 06:00 Platelet Estimate DECREASED PLATELETS (NORMAL) 09/21/16 06:00 Platelet Morphology NORMAL (NORMAL) 09/21/16 06:00 Polychromasia 1+ 09/10/16 05:17 Anisocytosis 1+ 09/20/16 04:40 RBC Morph Micro Appear NORMAL (NORMAL) 09/21/16 06:00 Eos Smear Source URINE 09/12/16 05:30 Eos Smear Total Cells NONE SEEN (NONE SEEN) 09/12/16 05:30 PT 15.0 SECONDS (9.5-11.5) H 09/18/16 08:48 INR 1.48 (0.5-1.4) H 09/18/16 08:48 PTT (Actin FS) 33.8 SECONDS (26.0-38.0) 09/18/16 08:48 Sodium 134 mEq/L (136-145) L 09/21/16 06:00 Potassium 3.7 mEq/L (3.5-5.1) 09/21/16 06:00 Chloride 101 mEq/L (98-107) 09/21/16 06:00 Carbon Dioxide 26.0 mEq/L (21.0-31.0) 09/21/16 06:00 Anion Gap 10.7 (7.0-16.0) 09/21/16 06:00 BUN 29 mg/dL (7-25) H 09/21/16 06:00 Creatinine 2.0 mg/dL (0.7-1.3) H 09/21/16 06:00 Est GFR ( Amer) TNP 09/21/16 06:00 Est GFR (Non-Af Amer) TNP 09/21/16 06:00 BUN/Creatinine Ratio 14.5 09/21/16 06:00 Glucose 87 mg/dL (70-105) 09/21/16 06:00 Calcium 7.7 mg/dL (8.6-10.3) L 09/21/16 06:00 Phosphorus 4.5 mg/dL (2.5-5.0) 09/11/16 05:01 Magnesium 2.3 mg/dL (1.9-2.7) 09/20/16 04:40 Total Bilirubin 2.1 mg/dL (0.3-1.0) H 09/21/16 06:00 AST 48 U/L (13-39) H 09/21/16 06:00 ALT 39 U/L (7-52) 09/21/16 06:00 Alkaline Phosphatase 96 U/L (34-104) 09/21/16 06:00 Ammonia 74 umol/L (16-53) H 09/14/16 08:00 Troponin I 0.06 ng/mL (0.01-0.05) H D 09/11/16 09:15 B-Natriuretic Peptide 3640.0 pg/mL (5.0-100.0) H 09/19/16 04:45 Total Protein 5.9 gm/dL (6.0-8.3) L 09/21/16 06:00 Albumin 2.0 gm/dL (4.2-5.5) L 09/21/16 06:00 Globulin 3.9 gm/dL 09/21/16 06:00 Albumin/Globulin Ratio 0.5 (1.0-1.8) L 09/21/16 06:00 TSH 3.62 uIU/ml (0.34-5.60) 09/18/16 11:07 Urine Source MIDSTREAM 09/12/16 05:30 Urine Color ALEC 09/12/16 05:30 Urine Clarity CLEAR (CLEAR) 09/12/16 05:30 Urine pH 5.0 09/12/16 05:30 Ur Specific [place] 1.030 (1.005-1.030) 09/12/16 05:30 Urine Protein >300 mg/dL (NEGATIVE) H 09/12/16 05:30 Urine Glucose (UA) NEGATIVE mg/dL (NEGATIVE) 09/12/16 05:30 Urine Ketones NEGATIVE mg/dL (NEGATIVE) 09/12/16 05:30 Urine Blood TRACE (NEGATIVE) 09/12/16 05:30 Urine Nitrate NEGATIVE (NEGATIVE) 09/12/16 05:30 Urine Bilirubin SMALL (NEGATIVE) H 09/12/16 05:30 Urine Urobilinogen 1.0 E.U./dL (0.2 - 1.0) 09/12/16 05:30 Ur Leukocyte Esterase NEGATIVE (NEGATIVE) 09/12/16 05:30 Urine RBC 0-2 /hpf (0-5) H 09/12/16 05:30 Urine WBC 0-2 /hpf (0-5) 09/12/16 05:30 Ur Epithelial Cells FEW /lpf (FEW) 09/12/16 05:30 Urine Bacteria FEW /hpf (NONE SEEN) 09/12/16 05:30 Hyaline Casts 0-2 /lpf (0-2) H 09/12/16 05:30 Ur Random Sodium 10 mmol/L 09/12/16 05:30 Urine Creatinine 200.0 mg/dl (39.0-259.0) 09/12/16 05:30 RPR NONREACTIVE (NONREACTIVE) 09/09/16 17:39 Hepatitis A IgM Ab Negative (Negative) 09/17/16 12:40 Hep Bs Antigen Negative (Negative) 09/17/16 12:40 Hep B Core IgM Ab Negative (Negative) 09/17/16 12:40 Hepatitis C Antibody <0.1 s/co ratio (0.0-0.9) 09/17/16 12:40 Blood Type A POSITIVE 09/14/16 09:15 - Physical Exam Vitals and I&O: Vital Signs Temp 96.7 F 09/22/16 12:02 Pulse 73 09/22/16 12:25 Resp 18 09/22/16 12:25 BP 114/87 09/22/16 12:02 Pulse Ox 98 09/22/16 12:25 Intake & Output 09/21/16 09/22/16 09/22/16 18:59 06:59 18:59 Intake Total 750 250 Balance 750 250 Intake: Intake, IV Amount 300 Azithromycin 250 mg In 250 Sodium Chloride 0.9% 250 ml @ 250 mls/hr IV Q24HR [facility] Rx#:[id number] cefTRIAXone 1 gm In 50 Sodium Chloride 0.9% 50 ml @ 100 mls/hr IV Q24HR [facility] Rx#:[id number] Oral 450 250 Other: # Voids 2 1 # Bowel Movements 0 0 Active Medications: Current Medications Acetaminophen (Tylenol) 650 mg PO Q4HR PRN PRN Reason: Pain Stop: 11/08/16 20:54 Last Admin: 09/19/16 16:30 Dose: 650 mg Acetaminophen/Hydrocodone Bitart ([place] 5mg/325mg) 1 tab PO Q4H PRN PRN Reason: severe pain Stop: 11/18/16 12:22 Last Admin: 09/21/16 13:49 Dose: 1 tab Albuterol/Ipratropium (Duoneb Neb) 3 ml HHN Q4HRT GOOD Stop: 11/09/16 10:59 Last Admin: 09/22/16 12:21 Dose: 3 ml Ascorbic Acid (Vitamin C) 500 mg PO DAILY GOOD Stop: 11/09/16 08:59 Last Admin: 09/22/16 08:28 Dose: 500 mg Carvedilol (Coreg) 6.25 mg PO Q12H GOOD Stop: 11/08/16 20:59 Last Admin: 09/22/16 08:31 Dose: Not Given Docusate Sodium (Colace) 100 mg PO DAILY GOOD Stop: 11/09/16 08:59 Last Admin: 09/22/16 08:28 Dose: 100 mg Furosemide (Lasix) 40 mg IVP BID GOOD Stop: 11/11/16 16:59 Last Admin: 09/22/16 08:30 Dose: 40 mg Hydralazine HCl (Apresoline) 10 mg PO BID GOOD Stop: 11/16/16 09:14 Last Admin: 09/22/16 08:30 Dose: Not Given Sodium Chloride (Nacl 0.9%) 1,000 mls @ 10 mls/hr IV .Q24H GOOD Stop: 11/08/16 20:59 Last Infusion: 09/16/16 18:10 Dose: 10 mls/hr Azithromycin 250 mg/ Sodium (Chloride) 250 mls @ 250 mls/hr IV Q24HR GOOD Stop: 11/17/16 11:14 Last Infusion: 09/21/16 12:00 Dose: Infused Ceftriaxone Sodium 1 gm/ (Sodium Chloride) 50 mls @ 100 mls/hr IV Q24HR GOOD Stop: 11/18/16 15:14 Last Infusion: 09/21/16 15:40 Dose: Infused Isosorbide Mononitrate (Imdur) 30 mg PO DAILY GOOD Stop: 11/16/16 09:14 Last Admin: 09/22/16 08:30 Dose: Not Given Lactobacillus Rhamnosus (Culturelle) 1 each PO DAILY GOOD Stop: 11/10/16 08:59 Last Admin: 09/22/16 08:29 Dose: 1 each Lactulose (Cephulac) 30 gm PO DAILY GOOD Stop: 11/12/16 13:44 Last Admin: 09/22/16 08:29 Dose: 30 gm Lorazepam (Ativan) 0.5 mg IVP Q6HR PRN; Protocol PRN Reason: Agitation Stop: 11/15/16 21:26 Last Admin: 09/21/16 20:20 Dose: 0.5 mg Magnesium Hydroxide (Milk Of Magnesia) 30 ml PO DAILY PRN PRN Reason: Constipation Stop: 11/08/16 20:54 Last Admin: 09/20/16 20:19 Dose: 30 ml Magnesium Oxide (Mag-Oxide) 400 mg PO DAILY GOOD Stop: 11/17/16 09:59 Last Admin: 09/22/16 08:28 Dose: 400 mg Miscellaneous (Probiotic Screen) 1 ea PRN PRN PRN Reason: PROTOCOL Stop: 11/09/16 11:19 Miscellaneous (Vte Chemical Prophylaxis Screen/ Admission) 1 ea PRN PRN PRN Reason: PROTOCOL Stop: 11/09/16 17:18 Miscellaneous (Clinical Monitoring) 1 ea PRN PRN PRN Reason: RENAL DOSING Stop: 11/12/16 12:53 Ondansetron HCl (Zofran) 4 mg IV Q8H PRN PRN Reason: Nausea / Vomiting Stop: 11/20/16 14:39 Promethazine HCl/Dextromethorphan (Phenergan Dm 6.25/15mg-5 Ml) 5 ml PO Q4H PRN PRN Reason: Cough Stop: 11/09/16 07:02 Last Admin: 09/11/16 08:41 Dose: 5 ml Quetiapine Fumarate (Seroquel) 12.5 mg PO HS GOOD PRN Reason: Protocol Stop: 11/14/16 20:59 Last Admin: 09/21/16 20:19 Dose: 12.5 mg Sodium Bicarbonate (Sodium Bicarbonate) 650 mg PO BID GOOD PRN Reason: Protocol Stop: 11/12/16 16:59 Last Admin: 09/22/16 08:29 Dose: 650 mg Tamsulosin HCl (Flomax) 0.4 mg PO HS GOOD Stop: 11/08/16 20:59 Last Admin: 09/21/16 20:19 Dose: 0.4 mg General: Alert, No acute distress HEENT: Atraumatic, EOMI, Mucous membr. moist/pink Neck: Supple, +2 carotid pulse wo bruit Cardiovascular: Regular rate, Normal S1, Normal S2 Lungs: Other (coarse rhonchi, few rales) Abdomen: Bowel sounds, Soft Extremities: Edema, Other ((+) 3 bipedal edema, upper ext edema) Neurological: Sensation intact Skin: no Rash - Procedures Procedures: Procedures Procedure Code Date FLUOROSCOPY OF LEFT SUBCLAVIAN VEIN, GUIDANCE [id number] 09/09/16 GROUP PSYCHOTHERAPY 33428 07/07/15 GROUP PSYCHOTHERAPY [id number] 07/07/15 INSERT TUNNELED CV CATH 14760 09/09/16 INSERTION OF INFUSION DEV INTO L SUBCLAV VEIN, PERC APPROACH [id number] 09/09/16 OTHER GROUP THERAPY 94.44 10/17/13 ULTRASONOGRAPHY OF LEFT SUBCLAVIAN VEIN, GUIDANCE [id number] 09/09/16 Assessment/Plan - Problem List Patient Problems: All Active Problems Diabetes mellitus (Active) E11.9 Congestive heart failure (Acute) I50.9 Dementia with behavioral disturbance (Acute) F03.91 Hypothyroidism (Acute) E03.9 Mental health disorder (Acute) F99 Psychosis (Acute) F29 SEXUALLY INAPPROPRIATE BEHAVIOR (Acute) - Assessment Assessment: belia on ckd right lower lobe HAP hypokalemia elevated BNP, possible chf anemia of ckd BPH alhz dementia w/ behavioral disturbance HTN DJD peripheral edema elevated liver enzymes possibly fatty liver acute bronchospasm GB calculi, distended GB but no dilatation - Plan Plan: decrease ivf due to persistent lower ext edema continue breathing Tx f/u electrolytes cxr still shows chf currently being dialyzed discussed w/ daughters,
[2016-09-22] MEDS: Azithromycin 250 MG in Sodium Chloride 0.9% 250 ML IV SCH (13:57)
[2016-09-22] MEDS: cefTRIAXone 1 GM in 0.9% NS 50 ML IV SCH (16:33)
--- NOTE | 2016-09-25 12:03 | Discharge Summary ---
CHIEF COMPLAINT: Cough. HISTORY OF PRESENT ILLNESS: This is the case of an 85-year-old male who was sent by half-way secondary to the patient having cough for a few days. Despite treatment, the patient was sent to Emergency Room for evaluation and treatment. At the moment of the admission, it was found that the patient had possible pneumonia and acute kidney disease over a chronic kidney disease, CHF, elevated troponin, reason why the patient was sent to ICU. HOSPITAL COURSE AND TREATMENT: Then, this patient was hospitalized. He was hospitalized in ICU unit. He was continued with half-way medications. IV ceftriaxone was started. The patient was started on albuterol breathing treatment. Consults with Nephrology, Cardiology, and Psychiatry were done and recommendations were followed. On 09/21/2016, the patient was transferred to telemetry unit. The following day, a central catheter was placed in order to do hemodialysis. Hemodialysis was started and was given every other day. Little by little, troponin was decreasing and renal function continued the same, but thanks to the hemodialysis, creatinine and BUN dropped. The case was discussed with family and family was informed about the poor prognosis. At the moment, family decided to put the patient in DNR. Due to the poor improvement after 14 days in this hospital, it was considered that it was necessary to transfer the patient to a retirement facility, reason why the patient was transferred to [facility] to continue treatment. At the moment of the discharge, the patient was awake, confused, and in no acute distress. CHEESEMAKER HELPER IN THIS CASE: Dr. Norm Haile, Nephrology, Dr. Huan Acevedo, Cardiology, Dr. Ruchi Troy, Psychiatry, and Dr. Kam, Surgery. DIAGNOSES: 1. Pneumonia. 2. Acute kidney disease over chronic kidney disease. 3. Elevated troponin. 4. Thrombocytopenia. 5. Liver enzymes elevated. 6. Dementia. 7. Congestive heart failure. 8. Hypertension. 9. Hypothyroidism. JOB# [id number]
== END 2016-09-22 19:27 | DRG 682 ==
LOC: ER 16:53 → ICU 19:47 → TELE 09-13 19:00
PROVIDERS: ADMIT General Practice; ATTEND General Practice
PROC: 05H633Z Insertion of Infusion Device into Left Subclavian Vein, Percutaneous Approach (ICD-10-PCS; principal; 2016-09-14)
PROC: B547ZZA Ultrasonography of Left Subclavian Vein, Guidance (ICD-10-PCS; 2016-09-14)
PROC: 5A1D60Z (ICD-10-PCS; 2016-09-16)
PROC: 05PY33Z Removal of Infusion Device from Upper Vein, Percutaneous Approach (ICD-10-PCS; 2016-09-18)
PROC: 05H633Z Insertion of Infusion Device into Left Subclavian Vein, Percutaneous Approach (ICD-10-PCS; 2016-09-18)
PROC: B517ZZA Fluoroscopy of Left Subclavian Vein, Guidance (ICD-10-PCS; 2016-09-18)
DX: N17.9 Acute kidney failure, unspecified (principal); J18.9 Pneumonia, unspecified organism; I50.43 Acute on chronic combined systolic (congestive) and diastolic (congestive) heart failure; J44.0 Chronic obstructive pulmonary disease with (acute) lower respiratory infection; I42.9 Cardiomyopathy, unspecified; G30.9 Alzheimer's disease, unspecified; F02.81 Dementia in other diseases classified elsewhere, unspecified severity, with behavioral disturbance; E11.22 Type 2 diabetes mellitus with diabetic chronic kidney disease; E44.1 Mild protein-calorie malnutrition; D69.6 Thrombocytopenia, unspecified; T82.41XA Breakdown (mechanical) of vascular dialysis catheter, initial encounter; I13.2 Hypertensive heart and chronic kidney disease with heart failure and with stage 5 chronic kidney disease, or end stage renal disease; L03.115 Cellulitis of right lower limb; J44.1 Chronic obstructive pulmonary disease with (acute) exacerbation; N18.6 End stage renal disease; E87.5 Hyperkalemia; E03.9 Hypothyroidism, unspecified; E78.5 Hyperlipidemia, unspecified; M19.90 Unspecified osteoarthritis, unspecified site; F41.9 Anxiety disorder, unspecified; N40.0 Benign prostatic hyperplasia without lower urinary tract symptoms; K21.9 Gastro-esophageal reflux disease without esophagitis; D63.1 Anemia in chronic kidney disease; D50.9 Iron deficiency anemia, unspecified; F32.9 Major depressive disorder, single episode, unspecified; K76.0 Fatty (change of) liver, not elsewhere classified; F29 Unspecified psychosis not due to a substance or known physiological condition; K72.90 Hepatic failure, unspecified without coma; J98.01 Acute bronchospasm; R07.89 Other chest pain; K80.20 Calculus of gallbladder without cholecystitis without obstruction; Y83.8 Other surgical procedures as the cause of abnormal reaction of the patient, or of later complication, without mention of misadventure at the time of the procedure; Y92.239 Unspecified place in hospital as the place of occurrence of the external cause; E87.6 Hypokalemia; Z87.891 Personal history of nicotine dependence; Z68.34 Body mass index [BMI] 34.0-34.9, adult
CPT/HCPCS: 36415-UA; 71010-TC; 76000-TC; 76700-TC; 80048-TC; 80053-TC; 80074-90; 81001-TC; 81015-TC; 82140-TC; 82570-TC; 83735-TC; 83880-TC; 84100-TC; 84300-TC; 84443-TC; 84484-TC; 85007-TC; 85025-TC; 85027-TC; 85610-TC; 86592-TC; 86900-TC; 86901-TC; 87070; 90937; 93005; 94640; 94760; J0456; J0696; J1644; J1940; J1956; J2060; J2250; J2405; J2704; J3475; J3480; J7030; J7040; J7070; P9046; X6530; Z7610